=== PATIENT | female | born 1970 | race Caucasian/White ===

== ENCOUNTER 2020-04-22 10:32 | Outpatient (REF) | payer MEDICAID, SELFPAY ==
--- NOTE | ~2020-04-22 | XR_ITS ---
EXAMINATION: XR LUMBOSACRAL SPINE WITH OBLIQUES CLINICAL INFORMATION: Lower back pain COMPARISON: 03/23/2014 TECHNIQUE: AP, both oblique, and lateral views of the lumbar spine. Lateral view of the lumbosacral junction. FINDINGS: No acute fracture or subluxation. Slight scoliotic curvature. There is slight anterior wedging of the T11 vertebral body. This is unchanged. Small endplate osteophytes at the lower thoracic spine. Lumbar vertebral body height and alignment is maintained. Disc spaces are maintained. Small endplate osteophytes at L3 anteriorly are increased from the 2015 study. Mild facet arthropathy at the lower lumbar spine. The sacroiliac joints are symmetric. The sacrum appears intact. The bowel gas pattern is unremarkable. XR/XR lumbar spine 4V min IMPRESSION: Mild degenerative changes at the lower thoracic spine with slight height loss of T11, unchanged. Mild degenerative changes of the lumbar spine are increased from prior, with small endplate osteophytes of L3 and mild facet arthropathy at the lower lumbar spine.
== END 2020-04-22 10:33 | disposition home or self-care (01) ==
LOC: HO.XRAY 10:32
PROVIDERS: Visit Provider Registered Nurse
DX: M54.5 Low back pain (principal)
CPT/HCPCS: 72110

== ENCOUNTER 2021-09-24 18:14 | Emergency (ER) | payer MEDICAID, SELFPAY ==
--- NOTE | ~2021-09-24 | XR_ITS ---
EXAMINATION: XR CHEST CLINICAL INFORMATION: Shortness of breath, Covid positive COMPARISON: Chest x-ray 02/27/2011 TECHNIQUE: 2 views of the chest were obtained. FINDINGS: The lungs are clear. No airspace consolidation, pleural effusion, or pneumothorax. Mild eventration of the anterior right hemidiaphragm. The cardiomediastinal silhouette is within normal limits. No acute osseous injury. XR/XR chest 2V IMPRESSION: No acute pulmonary process.
[2021-09-24 18:18] VITALS: BP 114/73; PULSE 100; RESP 18; TEMP 37.3; O2SAT 97; BMI 37.4
--- NOTE | 2021-09-24 19:33 | ED_ITS ---
HPI - URI/Sore Throat General Chief Complaint: Upper Respiratory Symptoms Stated Complaint: COVID + difficulty breathing Time Seen by Provider: 09/24/21 18:29 Source: patient Mode of arrival: ambulatory Limitations: no limitations History of Present Illness HPI Narrative: 51 yo female with history of mild intermittent asthma, obesity, prediabetes who presents to the ER for evaluation after she was found to be COVID positive at home today on a home antigen test. She states starting Wednesday she started having some runny nose, chest congestion and headaches. She developed subjective fevers and dry cough. She reports body aches and generally not feeling well. She denies any chest pain, difficulty breathing, nausea, vomiting, diarrhea or abdominal pain. She reports she is vaccinated for COVID with to Moderna vaccines, she cannot recall the exact dates but thinks the last one may have been in July. MD elicited complaint: fever, cough, nasal congestion and other (headache and chest congestion) Pertinent past history: asthma Onset (ago): day(s) (3-4) Consistency: progressively worsening Severity: moderate Able to tolerate fluids by mouth: Yes Exacerbating factors: exertion Relieving factors: OTC cold medicine Context: sick contacts Associated symptoms: fever, chills, myalgias, headache, nasal congestion and cough Treatments prior to arrival: none Related Data Previous Rx's Medication Instructions Recorded benzonatate 100 mg capsule 100 mg PO TID PRN cough #20 caps 09/24/21 Allergies Allergy/AdvReac Type Severity Reaction Status Date / Time No Known Allergies Allergy Verified 09/24/21 18:18 Review of Systems Review of Systems: Constitutional: + Fever, + Chills ENT/Mouth: No sore throat, No Rhinorrhea, No Swallowing Difficulty Eyes: No Eye Pain, No Swelling, No Redness Cardiovascular: No Chest Pain, No SOB, No Orthopnea, No Edema Respiratory: + Cough, No Sputum, No Wheezing, No dyspnea Gastrointestinal: No Nausea, No Vomiting, No Diarrhea, No abdominal Pain Genitourinary: No Dysuria, No Urinary Frequency, No Hematuria Musculoskeletal: No joint pain, No Myalgias Skin: No Skin Lesions, No rash Neuro: + Weakness, No Numbness, No Dizziness, + Headache Psych: No Anxiety/Panic, No Depression Heme/Lymph: No Bruising, No Lymphadenopathy Endocrine: No Polyuria, No Polydipsia PMFSH Social History Social History Advance Directives: No Advance Directives Information Provided: No Physical Exam Vital Signs: Vital Signs: Last Vital Signs Temp 99.1 F 09/24/21 18:18 Pulse 100 09/24/21 18:18 Resp 18 09/24/21 18:18 BP 114/73 09/24/21 18:18 Pulse Ox 97 09/24/21 18:18 O2 Del Method 09/24/21 18:18 BMI result Body Mass Index 37.4 Appearance: Alert. Oriented X3. No acute distress. Eyes: Pupils equal, round and reactive to light. ENT: Pharynx normal. Neck: Normal inspection. Neck supple. CVS: Normal heart rate and rhythm. Pulses normal. Respiratory: No respiratory distress. Breath sounds normal. Abdomen: Soft and nontender. +BS x4 Skin: Skin warm and dry. Normal skin color. Normal skin turgor. No rashes. Extremities: No lower extremity edema. No calf tenderness. Neuro: Oriented X 3. Grossly normal, nonfocal. Course Course Course Narrative: 51-year-old female with a history of asthma, prediabetes who presents to the ER for evaluation after she was found to be COVID positive at home today. She reports generalized headache, body aches, chest congestion and subjective fevers. On arrival to the ER she has a low-grade temp 99.1 degrees, blood pressure is normal. She is satting at 97% on room air. No respiratory distress her lungs are clear. Will get a chest x-ray to ensure no evidence of COVID pneumonia. Her symptom onset was greater than 72 hours ago. Reevaluation(s) Reevaluation #1: Chest x-ray is clear. At this time patient is stable for discharge home with supportive care. She was advised to use an at home pulse oximeter to keep an eye on her oxygen saturations. Will prescribe Tessalon as needed for cough. She will follow-up with her primary care doctor. Stable for d/c home. Critical Care Time Critical Care Time Critical Care Time: No Discharge Plan Discharge Clinical Impression: COVID-19 Patient Disposition: Home, Self-Care Instructions: Covid-19 Viral Syndrome and Novel Coronavirus (ED) Hey/Ath Additional Instructions: Your chest x-ray and oxygen levels were normal. Rest. Drink plenty of fluids. Do not go out in public for the next 7 days. Take over the counter cold/flu medications as needed for your symptoms. Take Tylenol and/or Motrin as needed for fevers, headaches and body aches. Follow up with your doctor this week. If you shortness of breath worsens , if you develop difficulty breathing or any other concerning symptom come back to the ER for further evaluation. Schaffer radiograf?a de t?rax y los niveles de ox?ирина fueron normales. Descansar. Beber mucho l?quido. No salga en p?blico suyapa los pr?ximos 7 d?as. [place] medicamentos de venta nasra para el resfriado o la gripe seg?n sea necesario para nicolle s?ntomas. [place] Tylenol y/o Motrin seg?n sea necesario para la fiebre, los cameron de grey y los cameron corporales. Ilene un seguimiento con schaffer m?dico esta semana. Si schaffer dificultad para respirar empeora, si desarrolla dificultad para respirar o cualquier otro s?ntoma preocupante, regrese a la otto de emergencias para peewee evaluaci?n adicional. Prescriptions: New benzonatate 100 mg capsule 100 mg PO TID PRN (Reason: cough) Qty: 20 0RF Print Language: [place]
== END 2021-09-24 20:28 | disposition home or self-care (01) ==
PROVIDERS: Emergency Provider Emergency Medicine
DX: U07.1 COVID-19 (principal); J45.909 Unspecified asthma, uncomplicated; E66.9 Obesity, unspecified; Z68.37 Body mass index [BMI] 37.0-37.9, adult
CPT/HCPCS: 71046; 99282; 99283

== ENCOUNTER 2022-01-19 15:21 | Emergency (ER) | payer MEDICAID, SELFPAY ==
--- NOTE | ~2022-01-19 | CT_ITS ---
EXAMINATION: CT ABDOMEN AND PELVIS WITHOUT CONTRAST CLINICAL INFORMATION: Left flank and abdominal pain. COMPARISON: None TECHNIQUE: Multidetector volumetric imaging was performed from the superior aspect of the liver through the pubic symphysis. Sagittal and coronal reformatted images were obtained on the technologist's workstation. This CT examination was performed using dose optimization techniques as appropriate, variously including the following: *Automated exposure control *Adjustment of mA and/or kV according to patient size (this includes techniques or standardized protocols for targeted exams where dose is matched to indication/reason for exam; i.e. extremities or head) *Use of iterative reconstruction technique DLP: 1097 mGy-cm FINDINGS: LUNG BASES: The visualized lung bases are unremarkable. LIVER, GALLBLADDER, AND BILIARY TREE: The liver is normal in size, shape, and attenuation. No focal hepatic lesion or biliary ductal dilatation is present. The gallbladder is unremarkable with no evidence of radiopaque gallstones, gallbladder wall thickening, or obvious pericholecystic inflammatory changes. There is focal gallbladder wall calcification. PANCREAS: The pancreas is homogeneous in density and normal size. Inferior the pancreas is slight mesenteric stranding and haziness. Small shotty lymph nodes are seen. SPLEEN: Unremarkable. ADRENAL GLANDS: Unremarkable. KIDNEYS AND URETERS: The kidneys are normal in size, shape, and attenuation. There is a 3 mm radiopaque calculi mid to lower pole left kidney without caliectasis or hydronephrosis. No additional radiopaque calculi seen.. BLADDER: Unremarkable. GASTROINTESTINAL TRACT: The stomach is distended with recently ingested food. The small bowel loops are normal caliber. Appendix is normal caliber. There is scattered colonic diverticulosis with mural thickening of sigmoid colon with fat stranding suggestive of diverticulitis. ABDOMINAL WALL: No significant hernia is appreciated. LYMPH NODES: Normal. VASCULAR: Unremarkable. PELVIC VISCERA: The uterus is anteverted and appears unremarkable. There is no free fluid or free air. There are scattered phleboliths in the pelvis. No abnormal size pelvic or inguinal lymph nodes seen. OSSEOUS STRUCTURES: Unremarkable. CT/CT abdomen pelvis wo IV con IMPRESSION: Sigmoid colon diverticulosis without diverticulitis. No perforation to suspect any free air or abscess. No proximal bowel obstruction. Nonobstructive radiopaque calculi mid to lower pole left kidney. Areas of focal calcification in the gallbladder wall. No radiopaque gallstone seen. Fleischner guidelines were followed.
--- NOTE | 2022-01-19 17:52 | ED_ITS ---
HPI - General Adult General Chief complaint: Abdominal Pain Stated complaint: abd pain Related Data Previous Rx's Medication Instructions Recorded benzonatate 100 mg capsule 100 mg PO TID PRN cough #20 caps 09/24/21 Allergies Allergy/AdvReac Type Severity Reaction Status Date / Time No Known Allergies Allergy Verified 01/19/22 17:55 [facility] Social History Social History Advance Directives: No Advance Directives Information Provided: No Physical Exam ED Vital Signs: BMI result Body Mass Index 39.4 Course Course Course Narrative: LLQ pain that radiates into the back, no dysuria, fevers, chills, nausea vomiting. Had diarrhea.+Urine frequency VS Reviewed GEN: NAD Abd: ND/NT - UA, CT Discharge Plan Discharge Clinical Impression: Abdominal pain Patient Disposition: Elopement Prescriptions: No Action benzonatate 100 mg capsule 100 mg PO TID PRN (Reason: cough) Qty: 20 0RF Interventions: LWBS Worksheet Last Done: 01/20/22 00:06 Discharge Date/Time: 01/20/22 00:50
[2022-01-19 17:53] VITALS: BP 156/85; PULSE 83; RESP 18; TEMP 36.3; O2SAT 99; BMI 39.4
--- NOTE | 2022-01-19 22:41 | PC.NURSE ---
no response called 3 times
== END 2022-01-20 00:50 | disposition left against medical advice (07) ==
LOC: HO.ED 01-20 00:21
PROVIDERS: Emergency Provider Emergency Medicine
DX: R10.32 Left lower quadrant pain (principal)
CPT/HCPCS: 74176; 99281; 99282; 99284

== ENCOUNTER → 2022-06-16 13:51 | Outpatient (BNVA) | payer MEDICAID, SELFPAY | PROVIDERS: PCP Family Medicine; Visit Provider Nurse Practitioner Family | DX: K59.04 Chronic idiopathic constipation (principal); K21.9 Gastro-esophageal reflux disease without esophagitis | CPT/HCPCS: 99202 ==

== ENCOUNTER 2023-01-16 11:45 | Emergency (ER) | payer MEDICAID, SELFPAY ==
--- NOTE | ~2023-01-16 | XR_ITS ---
EXAMINATION: XR CHEST CLINICAL INFORMATION: Chest pain, shortness of breath COMPARISON: Chest x-ray on 09/24/2021 TECHNIQUE: 2 views of the chest were obtained. FINDINGS: No significant abnormality is noted involving the heart, lungs, mediastinum, bony thorax or soft tissues. XR/XR chest 2V IMPRESSION: Unremarkable examination.
[2023-01-16 11:49] VITALS: BP 140/78; PULSE 92; O2SAT 99
--- NOTE | 2023-01-16 11:50 | ECG_ITS ---
Test Reason : cp Blood Pressure : / mmHG Vent. Rate : 084 BPM Atrial Rate : 084 BPM P-R Int : 126 ms QRS Dur : 082 ms QT Int : 394 ms P-R-T Axes : 022 -12 008 degrees QTc Int : 465 ms Normal sinus rhythm Normal ECG When compared with ECG of 26-FEB-2011 23:46, No significant change was found Referred By: Xin Yu Electronically Signed By:GAGE ZAMAN MD
[2023-01-16 12:02] VITALS: BP 122/74; PULSE 79; RESP 18; TEMP 36; O2SAT 99; BMI 41.4
--- NOTE | 2023-01-16 12:05 | ED.CHESTPAIN ---
HPI - Chest Pain General Chief Complaint: Chest Pain Stated Complaint: CHEST PAIN X 2 DAYS Time Seen by Provider: 01/16/23 16:56 Source: patient Mode of arrival: ambulatory Limitations: no limitations History of Present Illness HPI narrative: Patient coming from home but chest pain for last 2 days with dizziness and shortness of history of hypertension no history of known coronary disease patient was given 324 mg aspirin by EMS, EKG without any ischemic change cardiac enzymes negative BNP normal prior to my evaluation patient does have increased anxiety no prior cardiac history pain is sharp localized to left chest with no radiation Related Data Home Medications Medication Instructions Recorded Confirmed amitriptyline 10 mg tablet 10 mg PO BEDTIME 06/16/22 bupropion HCl 150 mg 24 hr tablet, 150 mg PO QAM 06/16/22 extended release buspirone 15 mg tablet 15 mg PO 06/16/22 cholecalciferol (vitamin D3) 50 50 mcg PO QAM 06/16/22 mcg (2,000 unit) capsule (Vitamin D3) fluoxetine 20 mg capsule 40 mg PO QAM 06/16/22 fluticasone propionate 220 1 puff inhalation BID 06/16/22 mcg/actuation HFA aerosol inhaler (Flovent HFA) fluticasone propionate 50 2 spray intranasal DAILY 06/16/22 mcg/actuation nasal spray,suspension loratadine 10 mg tablet 10 mg PO DAILY 06/16/22 zolpidem 10 mg tablet 10 mg PO BEDTIME PRN insomnia 06/16/22 Previous Rx's Medication Instructions Recorded benzonatate 100 mg capsule 100 mg PO TID PRN cough #20 caps 09/24/21 docusate sodium 100 mg capsule 100 mg PO BEDTIME #90 caps 06/16/22 sennosides 8.6 mg tablet (Natural 17.2 mg (2 x 8.6 mg) PO BEDTIME 06/16/22 Senna Laxative) constipation #180 tabs pantoprazole 40 mg tablet,delayed 40 mg PO DAILY #30 tabs 12/03/22 release lorazepam 1 mg tablet 1 mg PO BEDTIME PRN Anxiety/sleep 01/16/23 #14 tabs Allergies Allergy/AdvReac Type Severity Reaction Status Date / Time No Known Allergies Allergy Verified 06/16/22 14:11 Review of Systems Review of Systems: Yes all other systems are reviewed and are negative [facility] Family History Family History Mother Diabetes 1.5, managed as type 2 HTN (hypertension) Heart disease High cholesterol Father No problems noted. Sister HTN (hypertension) Diabetes 1.5, managed as type 2 High cholesterol Sister Diabetes 1.5, managed as type 2 HTN (hypertension) High cholesterol Heart disease Social History Social History Household Members: Family and Children Alcohol intake: current Patient Tobacco Use Status: Never used Tobacco Smoked in Last 30 Days: No Use of substances other than those prescribed or required for medical reasons: No Advance Directives: No Advance Directives Information Provided: No Physical Exam Vital Signs: Vital Signs: Last Vital Signs Temp 96.8 F 01/16/23 12:02 Pulse 67 01/16/23 17:07 Resp 18 01/16/23 17:07 BP 117/60 01/16/23 17:07 Pulse Ox 100 01/16/23 17:07 O2 Del Method Room Air 01/16/23 17:07 BMI result Body Mass Index 41.4 Appearance: Alert. Oriented X3. No acute distress. Eyes: PERRLA, No Nystagmus ENT: Pharynx normal. Oral Mucosa moist Neck: Normal inspection. Neck supple. CVS: Normal heart rate and rhythm. Pulses normal. Respiratory: No respiratory distress. Equal air entry bilateral, no wheezing/rales/rhonchi Abdomen: Soft and nontender. Bowel sounds are present, no mass palpable, no CVA tenderness Skin: Skin warm and dry. Normal skin color. Normal skin turgor. Extremities: No lower extremity edema. No calf tenderness Neuro: Oriented X 3. No motor deficit. No sensory deficit.No cerebellar signs , cranial nerves II-XII intact Course Course Course Narrative: This is an RME: Additional HPI, ROS, PE not included below will be deferred to primary provider. Patient is a 52-year-old female who presents emergency department for evaluation of chest pain x 2 days. Described as intermittent left anterior chest pain with shortness of breath, lasting approximately 1 minute described as a pushing/pressure sensation and both self resolves. Pain is most noted when she is lying on the left side or lying on her stomach. Today while walking down the stairs she felt short of breath without the pain. Currently feels fatigued, denies CP Plan: labs, EKG, XR Medical Decision Making Medical Decision Making [facility] Narrative: Patient atypical chest pain normal EKG normal cardiac end no chest pain at the time of evaluation with increased anxiety will discharge patient home on Ativan advised to follow with PCP for further evaluation Differential Diagnosis Differential Diagnoses: The differential diagnosis associated with the presentation includes ACS/chest wall pain/anxiety Admission/Observation Consideration of admission/observation: Escalation of care including admission/observation considered Lab Data [facility] Lab Attestation statement: I reviewed the patient's lab results. 01/16/23 14:07 01/16/23 14:07 Labs: Lab Results 01/16/23 Range/Units 14:07 WBC 13.8 H (4.8-10.8) X10*3/uL RBC 4.83 (4.20-5.50) X10*6/uL Hgb 11.4 L (12.0-16.0) g/dl Hct 35.1 L (37.0-47.0) % MCV 72.7 L (80.0-98.0) fL MCH 23.6 L (27.0-33.0) pg MCHC 32.5 (31.0-35.0) g/dl RDW 15.1 (11.0-16.0) % Plt Count 360 (160-400) X10*3/uL MPV 10.5 (9.4-12.3) fL Immature Gran % (Auto) 0.4 (0.0-0.4) % Neut % (Auto) 73.1 H (45-73) % Lymph % (Auto) 19.8 L (20-40) % [place] % (Auto) 5.0 (2-11) % Eos % (Auto) 1.2 (0-4) % Baso % (Auto) 0.5 (0-2) % Lymph # (Auto) 2.7 (1.2-4.9) X10*3/uL [place] # (Auto) 0.7 (0.1-1.2) X10*3/uL Eos # (Auto) 0.2 (0.0-0.4) X10*3/uL Baso # (Auto) 0.1 (0.0-0.2) X10*3/uL Abs Immat Gran (auto) 0.06 H (0.00-0.03) X10*3/uL Absolute Neuts (auto) 10.0 H (2.0-8.3) x10*3/uL Absolute Nucleated RBC 0.000 (0.0-0.012) X10*3/uL Nucleated RBC % (auto) 0.0 (0.0-0.2) /100WBC PT 12.7 (11.1-13.3) SEC INR 1.0 (0.9-1.1) Sodium 138 (135-145) mmol/L Potassium 3.6 (3.3-5.1) mmol/L Chloride 110 H (96-108) mmol/L Carbon Dioxide 20 L (22-29) mmol/L Anion Gap 12 (12-20) BUN 11 (9-16) mg/dL Creatinine 0.83 (0.5-1.4) mg/dL Estim Creat Clear Calc 96.8 Estimated GFR > 60 Random Glucose 143 H (60-115) mg/dL Calcium 9.2 (8.4-10.2) mg/dL Magnesium 2.0 (1.6-2.6) mg/dL Total Bilirubin 0.5 (0.0-1.0) mg/dL AST 10 (5-31) U/L ALT 7 (0-31) U/L Alkaline Phosphatase 65 (39-117) U/L Troponin I High Sens < 2.7 (<3.5-17.0) ng/L B-Natriuretic Peptide < 10 (<100) pg/mL Total Protein 7.5 (6.5-8.0) g/dL Albumin 4.0 (3.5-5.0) g/dL COVID-19 (ADRIANA) Negative (Negative) COVID-19 Clin Com See Note Influenza Type A (KARLA) Negative (Negative) Influenza Type B (KARLA) Negative (Negative) Influenza A & B Note See Note Independent Interpretation I performed an independent interpretation of an: EKG and Plain X-Ray Interpretation: Normal sinus rhythm with heart rate 84 beats per minute normal interval normal axis no acute ST-T changes no acute ischemia Radiology Impression Discussion of test interpretation with radiology: I have reviewed the radiologist's reading. Discharge Plan Discharge Clinical Impression: Chest pain, Anxiety, Biliary colic Patient Disposition: Home, Self-Care Instructions: Chest Pain (ED), Anxiety (ED) Additional Instructions: Continue taking medication as prescribed by her PCP it is not clear whether your chest pain from the heart, you need further management Lorazepam for severe anxiety and sleep as needed Follow with PCP for further evaluation including stress test Continuar tomando los medicamentos seg?n lo recetado por schaffer PCP. No est? chasity si schaffer dolor en el pecho proviene del coraz?n; necesita m?s tratamiento. Lorazepam para la ansiedad severa y dormir seg?n sea necesario Siga con el PCP para peewee evaluaci?n adicional, incluida peewee prueba de esfuerzo. Prescriptions: New lorazepam 1 mg tablet 1 mg PO BEDTIME PRN (Reason: Anxiety/sleep) Qty: 14 0RF No Action pantoprazole 40 mg tablet,delayed release (DR/EC) 40 mg PO DAILY Qty: 30 2RF Rx Instructions: take one tablet half an hour before breakfast benzonatate 100 mg capsule 100 mg PO TID PRN (Reason: cough) Qty: 20 0RF cholecalciferol (vitamin D3) [Vitamin D3] 50 mcg (2,000 unit) capsule 50 mcg PO QAM bupropion HCl 150 mg tablet extended release 24 hr 150 mg PO QAM buspirone 15 mg tablet 15 mg PO loratadine 10 mg tablet 10 mg PO DAILY fluoxetine 20 mg capsule 40 mg PO QAM zolpidem 10 mg tablet 10 mg PO BEDTIME PRN (Reason: insomnia) amitriptyline 10 mg tablet 10 mg PO BEDTIME fluticasone propionate 50 mcg/actuation spray,suspension 2 spray intranasal DAILY fluticasone propionate [Flovent HFA] 220 mcg/actuation HFA aerosol inhaler 1 puff inhalation BID docusate sodium 100 mg capsule 100 mg PO BEDTIME Qty: 90 3RF sennosides [Natural Senna Laxative] 8.6 mg tablet 17.2 mg PO BEDTIME Qty: 180 3RF Print Language: Chinese
[2023-01-16 14:13] LABS: MANUAL DIFF FLAG NO
[2023-01-16 14:14] LABS: Basophils Absolute Auto 0.1 X10*3/uL (0.0-0.2); Basophils Percent Auto 0.5 % (0-2); Eosinophils Absolute Auto 0.2 X10*3/uL (0.0-0.4); Eosinophils Percent Auto 1.2 % (0-4); Hematocrit 35.1 % (37.0-47.0); Hemoglobin 11.4 g/dl (12.0-16.0); Imm Gran Abs Auto 0.06 X10*3/uL (0.00-0.03); Imm Gran Pct Auto 0.4 % (0.0-0.4); Lymphocytes Absolute Auto 2.7 X10*3/uL (1.2-4.9); Lymphocytes Percent Auto 19.8 % (20-40); Mean Corpuscular HGB Conc 32.5 g/dl (31.0-35.0); Mean Corpuscular Hemoglobin 23.6 pg (27.0-33.0); Mean Corpuscular Volume 72.7 fL (80.0-98.0); Mean Platelet Volume 10.5 fL (9.4-12.3); Monocytes Absolute Auto 0.7 X10*3/uL (0.1-1.2); Neutrophils Percent Auto 73.1 % (45-73); Platelet Count 360 X10*3/uL (160-400); Red Blood Count 4.83 X10*6/uL (4.20-5.50); Red Cell Distribution Width 15.1 % (11.0-16.0); White Blood Count 13.8 X10*3/uL (4.8-10.8)
[2023-01-16 14:29] LABS: Alanine Aminotransferase 7 U/L (0-31); Alkaline Phosphatase 65 U/L (39-117); Anion Gap 12 (12-20); Aspartate Amino Transferase 10 U/L (5-31); Bilirubin Total 0.5 mg/dL (0.0-1.0); Blood Urea Nitrogen 11 mg/dL (9-16); Calcium 9.2 mg/dL (8.4-10.2); Carbon Dioxide 20 mmol/L (22-29); Chloride 110 mmol/L (96-108); Creatinine Clr Calc Pharmacy 96.8; Estimated Glomerular Filt Rate > 60; Glucose Random 143 mg/dL (60-115); Potassium 3.6 mmol/L (3.3-5.1); Sodium 138 mmol/L (135-145); Total Protein 7.5 g/dL (6.5-8.0)
[2023-01-16 14:31] LABS: COVID-19 Test Negative (Negative); IDNOW Serial# 58CA691E; IDNOW Serial# 9DB6401D; Influenza A Negative (Negative); Influenza B2 Negative (Negative); Prothrombin Time 12.7 SEC (11.1-13.3)
[2023-01-16 14:36] LABS: B Type Natriuretic Peptide < 10 pg/mL (<100)
[2023-01-16 14:40] LABS: Troponin-I High Sensitivity < 2.7 ng/L (<3.5-17.0)
[2023-01-16 17:07] VITALS: BP 117/60; PULSE 67; RESP 18; O2SAT 100
[2023-01-16] MEDS: LORazepam 1 MG TABLET PO (18:12)
== END 2023-01-16 18:24 | disposition home or self-care (01) ==
PROVIDERS: Nurse Practitioner Family; Emergency Provider Internal Medicine; PCP Family Medicine
DX: R07.9 Chest pain, unspecified (principal); F41.9 Anxiety disorder, unspecified; K80.50 Calculus of bile duct without cholangitis or cholecystitis without obstruction; Z11.52 Encounter for screening for COVID-19; R06.02 Shortness of breath; E11.9 Type 2 diabetes mellitus without complications; I10 Essential (primary) hypertension; E78.5 Hyperlipidemia, unspecified; Z79.899 Other long term (current) drug therapy
CPT/HCPCS: 36415; 71046; 80053; 83735; 83880; 84484; 85025; 85610; 87502; 87635; 93005; 99283; 99285

== ENCOUNTER → 2023-01-16 11:50 | Outpatient (BNV) | payer MEDICAID, SELFPAY | PROVIDERS: Emergency Provider Internal Medicine; PCP Family Medicine; Visit Provider Internal Medicine Cardiovascular Disease | DX: R07.9 Chest pain, unspecified (principal) | CPT/HCPCS: 93010 ==

== ENCOUNTER 2023-04-30 11:36 | Outpatient (REF) | payer MEDICAID, SELFPAY ==
[2023-04-30 13:35] LABS: Hematocrit 35.9 % (37.0-47.0); Hemoglobin 11.5 g/dl (12.0-16.0); Mean Corpuscular Hemoglobin 23.9 pg (27.0-33.0); Mean Corpuscular Volume 74.6 fL (80.0-98.0); Mean Platelet Volume 10.5 fL (9.4-12.3); Platelet Count 395 X10*3/uL (160-400); Red Blood Count 4.81 X10*6/uL (4.20-5.50); Red Cell Distribution Width 15.4 % (11.0-16.0); White Blood Count 12.8 X10*3/uL (4.8-10.8)
[2023-04-30 13:40] LABS: Estimated Average Glucose 111 mg/dL; Hemoglobin A1c % 5.5 % (<6.0)
[2023-04-30 13:54] LABS: Alanine Aminotransferase 8 U/L (0-31); Albumin Level 4.2 g/dL (3.5-5.0); Alkaline Phosphatase 73 U/L (39-117); Anion Gap 10 (12-20); Aspartate Amino Transferase 14 U/L (5-31); Bilirubin Direct 0.2 mg/dL (0.0-0.5); Bilirubin Total 0.5 mg/dL (0.0-1.0); Blood Urea Nitrogen 11 mg/dL (9-16); Calcium 9.2 mg/dL (8.4-10.2); Carbon Dioxide 25 mmol/L (22-29); Chloride 107 mmol/L (96-108); Cholesterol 151 mg/dL (<200); Estimated Glomerular Filt Rate > 60; Glucose Random 110 mg/dL (60-115); HDL Cholesterol 51 mg/dL (>40); LDL Cholesterol Calculated 78 mg/dL (<100); Sodium 138 mmol/L (135-145); Triglycerides 111 mg/dL (<150)
[2023-04-30 14:10] LABS: Thyroid Stimulating Hormone 2.97 uIU/mL (0.32-4.0)
[2023-05-01 04:20] LABS: HBS Num1 0.41 mIU/mL (0-7.99); HBsAGNum1 0.45 S/CO (0.00-0.99); HIV AB/AG Nonreactive (Nonreactive); HIV Num 1 0.06 S/CO (0.00-0.99); Hepatitis B Surface Antigen Negative (Negative); ~HepC Num1 0.16 S/CO (0.00-0.79); ~Hepatitis B Surface Antibody NONREACTIVE (Nonreactive); ~Hepatitis C Antibody Nonreactive (Nonreactive)
[2023-05-03 09:20] LABS: RPR Rapid Plasma Reagin NON-REACTIVE (NON-REACTIVE)
== END 2023-04-30 11:37 | disposition home or self-care (01) ==
LOC: HO.HHCL 11:36
PROVIDERS: Visit Provider Family Medicine
DX: Z11.4 Encounter for screening for human immunodeficiency virus [HIV] (principal); Z13.6 Encounter for screening for cardiovascular disorders; R73.03 Prediabetes
CPT/HCPCS: 36415; 80048; 80061; 80076; 82306; 83036; 84439; 84443; 85027; 86592; 86706; 86803; 87340; 87389

== ENCOUNTER 2023-05-27 15:45 | Outpatient (REF) | payer MEDICAID, SELFPAY ==
--- NOTE | ~2023-05-27 | MM_ITS ---
EXAMINATION: MM SCREENING DIGITAL BREAST TOMOSYNTHESIS, BILATERAL CLINICAL INFORMATION: Screening. Asymptomatic. COMPARISON: Mammography: This study is compared with prior exams dating back to 2015. TECHNIQUE: Digital breast tomosynthesis is performed in both the craniocaudal and mediolateral oblique views along with computer-aided detection (CAD). Synthesized 2D images are generated from the tomosynthesis. FINDINGS: There are scattered areas of fibroglandular density (ACR BI-RADS breast composition Category b). There are no significant masses, abnormal calcifications, or other abnormalities. MM/MM tomosynthesis screening BI IMPRESSION: No mammographic evidence of malignancy. ASSESSMENT: BI-RADS BI-RADS 1 - Negative RECOMMENDATION: Routine annual mammography screening. 1 year F/U This examination should not preclude the clinical evaluation of a suspicious palpable abnormality. This patient's information was entered into a reminder system with a target due date for their next mammogram.
== END 2023-05-27 15:46 | disposition home or self-care (01) ==
LOC: HO.MAMMO 15:45
PROVIDERS: Visit Provider Family Medicine
DX: Z12.31 Encounter for screening mammogram for malignant neoplasm of breast (principal)
CPT/HCPCS: 77063; 77067

== ENCOUNTER → 2023-05-27 16:15 | Outpatient (BNV) | payer MEDICAID, SELFPAY | PROVIDERS: Visit Provider Radiology Diagnostic Radiology | DX: Z12.31 Encounter for screening mammogram for malignant neoplasm of breast (principal) | CPT/HCPCS: 77063; 77067 ==

== ENCOUNTER 2023-09-07 11:53 | Outpatient (REF) | payer MEDICAID, SELFPAY ==
--- NOTE | ~2023-09-07 | XR_ITS ---
EXAMINATION: XR KNEE, LEFT CLINICAL INFORMATION: Pain in left knee. Fall. COMPARISON: None available. TECHNIQUE: Four views of the left knee. FINDINGS: No fracture or joint effusion. Alignment is anatomic. Joint spaces are maintained. No abnormal soft tissue calcification. XR/XR knee LT 4V IMPRESSION: Normal left knee.
--- NOTE | ~2023-09-07 | XR_ITS ---
EXAMINATION: XR SHOULDER, LEFT CLINICAL INFORMATION: Fall. Pain in shoulder. History of lifting heavy object 2 weeks ago. COMPARISON: None available. TECHNIQUE: Four views of the left shoulder. FINDINGS: The bones and soft tissues are normal. No fracture. Glenohumeral and acromioclavicular alignment is anatomic with normal joint space. No abnormal soft tissue calcifications. XR/XR shoulder LT min 2V IMPRESSION: Normal left shoulder.
[2023-09-07 13:11] LABS: MANUAL DIFF FLAG NO
[2023-09-07 13:20] LABS: Basophils Absolute Auto 0.1 X10*3/uL (0.0-0.2); Basophils Percent Auto 0.4 % (0-2); Eosinophils Absolute Auto 0.2 X10*3/uL (0.0-0.4); Eosinophils Percent Auto 1.2 % (0-4); Hematocrit 36.1 % (37.0-47.0); Hemoglobin 11.6 g/dl (12.0-16.0); Imm Gran Abs Auto 0.05 X10*3/uL (0.00-0.03); Imm Gran Pct Auto 0.4 % (0.0-0.4); Lymphocytes Absolute Auto 2.7 X10*3/uL (1.2-4.9); Lymphocytes Percent Auto 20.7 % (20-40); Mean Corpuscular HGB Conc 32.1 g/dl (31.0-35.0); Mean Corpuscular Hemoglobin 23.1 pg (27.0-33.0); Mean Corpuscular Volume 71.9 fL (80.0-98.0); Mean Platelet Volume 10.4 fL (9.4-12.3); Monocytes Absolute Auto 0.7 X10*3/uL (0.1-1.2); Monocytes Percent Auto 5.6 % (2-11); Neutrophils Absolute Auto 9.2 x10*3/uL (2.0-8.3); Neutrophils Percent Auto 71.7 % (45-73); Platelet Count 339 X10*3/uL (160-400); Red Blood Count 5.02 X10*6/uL (4.20-5.50); Red Cell Distribution Width 16.1 % (11.0-16.0); White Blood Count 12.8 X10*3/uL (4.8-10.8)
[2023-09-07 14:04] LABS: Iron 45 mcg/dL (30-160); Percent Iron Saturation 12 % (15-50); Total Iron Binding Capacity 374 mcg/dL (228-428); Unsaturated Iron Binding 329 ug/dL
[2023-09-07 14:21] LABS: Ferritin 10 ng/mL (10-250)
[2023-09-07 14:27] LABS: Folate 6.7 ng/mL (> or = 4.0); Vitamin B12 335 pg/mL (200-900)
== END 2023-09-07 11:54 | disposition home or self-care (01) ==
LOC: HO.HHCL 11:53
PROVIDERS: Visit Provider Family Medicine
DX: D72.829 Elevated white blood cell count, unspecified (principal); M89.8X1 Other specified disorders of bone, shoulder; M25.562 Pain in left knee; G89.29 Other chronic pain
CPT/HCPCS: 36415; 73030; 73564; 82607; 82728; 82746; 83540; 85025

== ENCOUNTER 2023-11-17 11:12 | Emergency (ER) | payer MEDICAID, SELFPAY ==
[2023-11-17 11:15] VITALS: BP 128/77; PULSE 84; RESP 16; TEMP 36.3; O2SAT 98; BMI 37.7
--- NOTE | 2023-11-17 11:17 | ED.GENADULT ---
HPI - General Adult General Chief complaint: Abdominal Pain Stated complaint: abd pain-nausea Time Seen by Provider: 11/17/23 13:44 Source: patient Mode of arrival: ambulatory Limitations: no limitations History of Present Illness HPI narrative: 53 year old female presents to the ER with abdominal pain. Pain is to her epigastric area the pain is worse with fatty foods. Was seen in triage and labs done. Pain is epigastric no RUQ or RLQ pain no previous surgeries still eating just less. Has not tried anything for pain. NO fever chills or cough. Related Data Home Medications ?Medication ?Instructions ?Recorded ?Confirmed amitriptyline 10 mg tablet 10 mg PO BEDTIME 06/16/22 bupropion HCl 150 mg 24 hr tablet, 150 mg PO QAM 06/16/22 extended release buspirone 15 mg tablet 15 mg PO 06/16/22 cholecalciferol (vitamin D3) 50 50 mcg PO QAM 06/16/22 mcg (2,000 unit) capsule (Vitamin D3) fluoxetine 20 mg capsule 40 mg PO QAM 06/16/22 fluticasone propionate 220 1 puff inhalation BID 06/16/22 mcg/actuation HFA aerosol inhaler (Flovent HFA) fluticasone propionate 50 2 spray intranasal DAILY 06/16/22 mcg/actuation nasal spray,suspension loratadine 10 mg tablet 10 mg PO DAILY 06/16/22 zolpidem 10 mg tablet 10 mg PO BEDTIME PRN insomnia 06/16/22 Previous Rx's ?Medication ?Instructions ?Recorded benzonatate 100 mg capsule 100 mg PO TID PRN cough #20 caps 09/24/21 docusate sodium 100 mg capsule 100 mg PO BEDTIME #90 caps 06/16/22 lorazepam 1 mg tablet 1 mg PO BEDTIME PRN Anxiety/sleep 01/16/23 #14 tabs sennosides 8.6 mg tablet (Natural 17.2 mg (2 x 8.6 mg) PO BEDTIME 06/23/23 Senna Laxative) constipation #180 tabs pantoprazole 40 mg tablet,delayed 40 mg PO DAILY #30 tabs 08/16/23 release aluminum-mag hydroxide-simethicone 10 ml PO Q6H PRN indigestion 11/17/23 200 mg-200 mg-20 mg/5 mL oral susp #3,000 mL (Maalox Advanced) famotidine 20 mg tablet (Pepcid) 20 mg PO BID PRN GERD #60 tabs 11/17/23 ondansetron 4 mg disintegrating 4 mg PO Q6H #14 tabs 11/17/23 tablet Allergies Allergy/AdvReac Type Severity Reaction Status Date / Time No Known Allergies Allergy Verified 11/17/23 11:19 Review of Systems Review of Systems: Review of systems: General: Patient denies any fever chills recent illness or falls Musculoskeletal: Denies back pain or body aches or other injuries HEENT: denies headache, runny nose, ear pain Respiratory: denies shortness of breath, cough Cardiovascular: no chest pain or palpitations : denies dysuria, frequency Abdomen: no nausea vomiting epigastric abdominal pain Extremities: no swelling, no pain Skin: no diaphoresis Yes all other systems are reviewed and are negative [facility] Family History Family History Mother Diabetes 1.5, managed as type 2 HTN (hypertension) Heart disease High cholesterol Father No problems noted. Sister HTN (hypertension) Diabetes 1.5, managed as type 2 High cholesterol Sister Diabetes 1.5, managed as type 2 HTN (hypertension) High cholesterol Heart disease Social History Social History (System 05/03/23 @ 14:09 by Evelyne De Los Santos) Household Members: Family and Children Alcohol intake: current Patient Tobacco Use Status: Never used Tobacco Advance Directives: No Advance Directives Information Provided: No Do you have a plan to hurt others: No Plan Physical Exam ED Vital Signs: Vital Signs - 24 hr 11/17/23 11:15 11/17/23 12:00 Temperature 97.3 F 97.8 F Pulse Rate 84 76 Respiratory Rate 16 16 Blood Pressure 128/77 143/77 H Pulse Oximetry 98 98 Oxygen Delivery Method Room Air Room Air BMI result Body Mass Index 37.7 General: Well-appearing well-nourished in no signs of distress HEENT: Normocephalic atraumatic Neck: No signs of JVD, no masses no tenderness or lymphadenopathy Cardiovascular: Regular rate and rhythm Respiratory: Clear to auscultation bilaterally Abdomen: Soft nontender no masses Extremities: Normal pedal pulses no signs of edema Skin: Dry warm no rashes Back: No tenderness full ROM Course Course Course Narrative: This is a rapid medical exam performed by Dave Sands NP: Additional HPI, ROS, PE not included below will be deferred to primary provider. Patient is a 53-year-old Kyrgyz speaking female with history of anxiety and depression presenting to the emergency department with complaint of epigastric abdominal pain, dizziness, nausea, vomiting, and 2 episodes of diarrhea. Abdominal pain x 3 days. Denies urinary symptoms. Plan: viral serology, labs Reevaluation(s) Reevaluation #1: Patient now sleeping in the room after Maalox and Pepcid she looks well we will send patient home Maalox Pepcid Zofran and close PCP follow up. Time: 15:08 Medications Administered Discontinued Medications Generic Name Dose Route Start Last Admin Trade Name Freq PRN Reason Stop Dose Admin Al Hydroxide/Mg Hydroxide 30 ml 11/17/23 13:56 11/17/23 14:24 Magnesium Hydrox/Alum Hydrox 30 Ml Oral.Susp PO 11/17/23 13:57 30 ml ONCE ONE Administration Famotidine 20 mg 11/17/23 13:56 11/17/23 14:24 Famotidine 20 Mg Tablet PO 11/17/23 13:57 20 mg ONCE ONE Administration Medical Decision Making Medical Decision Making [facility] Narrative: Patient looks well pain is not reproducible on exam this not a surgical abdomen do not think there is any need for ultrasound or imaging patient's labs are unremarkable I will try GI cocktail and reassess. Differential Diagnosis Differential Diagnoses: The differential diagnosis associated with the presentation includes Epigastric pain gastritis dehydration less likely cholecystitis cholangitis or choledocholithiasis with a normal exam anemia electrolyte abnormality Lab Data [facility] Lab Attestation statement: I reviewed the patient's lab results. 11/17/23 12:05 11/17/23 12:05 Labs: Lab Results 11/17/23 11/17/23 Range/Units 12:05 13:37 WBC 11.3 H (4.8-10.8) X10*3/uL RBC 4.72 (4.20-5.50) X10*6/uL Hgb 10.9 L (12.0-16.0) g/dl Hct 33.1 L (37.0-47.0) % MCV 70.1 L (80.0-98.0) fL MCH 23.1 L (27.0-33.0) pg MCHC 32.9 (31.0-35.0) g/dl RDW 15.4 (11.0-16.0) % Plt Count 343 (160-400) X10*3/uL MPV 10.0 (9.4-12.3) fL Immature Gran % (Auto) 0.4 (0.0-0.4) % Neut % (Auto) 66.4 (45-73) % Lymph % (Auto) 23.7 (20-40) % [place] % (Auto) 6.7 (2-11) % Eos % (Auto) 2.2 (0-4) % Baso % (Auto) 0.6 (0-2) % Lymph # (Auto) 2.7 (1.2-4.9) X10*3/uL [place] # (Auto) 0.8 (0.1-1.2) X10*3/uL Eos # (Auto) 0.3 (0.0-0.4) X10*3/uL Baso # (Auto) 0.1 (0.0-0.2) X10*3/uL Abs Immat Gran (auto) 0.04 H (0.00-0.03) X10*3/uL Absolute Neuts (auto) 7.5 (2.0-8.3) x10*3/uL Absolute Nucleated RBC 0.000 (0.0-0.012) X10*3/uL Nucleated RBC % (auto) 0.0 (0.0-0.2) /100WBC Sodium 139 (135-145) mmol/L Potassium 3.5 (3.3-5.1) mmol/L Chloride 107 (96-108) mmol/L Carbon Dioxide 25 (22-29) mmol/L Anion Gap 11 L (12-20) BUN 12 (9-16) mg/dL Creatinine 0.88 (0.5-1.4) mg/dL Estim Creat Clear Calc 82.7 Estimated GFR > 60 Random Glucose 121 H (60-115) mg/dL Calcium 9.4 (8.4-10.2) mg/dL Total Bilirubin 0.3 (0.0-1.0) mg/dL AST 11 (5-31) U/L ALT 8 (0-31) U/L Alkaline Phosphatase 70 (39-117) U/L Total Protein 7.3 (6.5-8.0) g/dL Albumin 4.0 (3.5-5.0) g/dL Urine Color Yellow Urine Appearance Clear Urine pH 5.5 (5.0-9.0) Ur Specific [place] 1.025 (1.005-1.025) Urine Protein Negative (Neg-Trace) mg/dL Urine Glucose (UA) Negative (Negative) mg/dL Urine Ketones Negative (Negative) mg/dL Urine Blood Negative (Negative) Urine Nitrite Negative (Negative) Ur Leukocyte Esterase Negative (Negative) Influenza Type A (PCR) NEGATIVE (Negative) Influenza Type B (PCR) NEGATIVE (Negative) RSV RNA Qual (PCR) NEGATIVE (Negative) SARS-CoV-2 RNA (RT-PCR) NEGATIVE (Negative) External Record Review External record reviewed: Inpatient record, Office record, Outpatient record and Prior outpatient labs Discharge Plan Discharge Clinical Impression: Abdominal pain Patient Disposition: Home, Self-Care Instructions: Abdominal Pain (ED), Gastroesophageal Reflux Disease (DC) Additional Instructions: You were seen today for abdominal pain. You had labs done which were all unremarkable. Please call follow up with your doctor if you have any other concerns please return to the emergency department. Prescriptions: New famotidine [Pepcid] 20 mg tablet 20 mg PO BID PRN (Reason: GERD) Qty: 60 0RF alum-mag hydroxide-simeth [Maalox Advanced] 200-200-20 mg/5 mL suspension 10 ml PO Q6H PRN (Reason: indigestion) Qty: 3000 0RF ondansetron 4 mg tablet,disintegrating 4 mg PO Q6H Qty: 14 0RF No Action sennosides [Natural Senna Laxative] 8.6 mg tablet 17.2 mg PO BEDTIME Qty: 180 3RF pantoprazole 40 mg tablet,delayed release (DR/EC) 40 mg PO DAILY Qty: 30 2RF Rx Instructions: take one tablet half an hour before breakfast benzonatate 100 mg capsule 100 mg PO TID PRN (Reason: cough) Qty: 20 0RF lorazepam 1 mg tablet 1 mg PO BEDTIME PRN (Reason: Anxiety/sleep) Qty: 14 0RF cholecalciferol (vitamin D3) [Vitamin D3] 50 mcg (2,000 unit) capsule 50 mcg PO QAM bupropion HCl 150 mg tablet extended release 24 hr 150 mg PO QAM buspirone 15 mg tablet 15 mg PO loratadine 10 mg tablet 10 mg PO DAILY fluoxetine 20 mg capsule 40 mg PO QAM zolpidem 10 mg tablet 10 mg PO BEDTIME PRN (Reason: insomnia) amitriptyline 10 mg tablet 10 mg PO BEDTIME fluticasone propionate 50 mcg/actuation spray,suspension 2 spray intranasal DAILY fluticasone propionate [Flovent HFA] 220 mcg/actuation HFA aerosol inhaler 1 puff inhalation BID docusate sodium 100 mg capsule 100 mg PO BEDTIME Qty: 90 3RF Print Language: Kyrgyz
[2023-11-17 12:00] VITALS: BP 143/77; PULSE 76; RESP 16; TEMP 36.6; O2SAT 98
[2023-11-17 12:10] LABS: MANUAL DIFF FLAG NO
[2023-11-17 12:13] LABS: Basophils Absolute Auto 0.1 X10*3/uL (0.0-0.2); Basophils Percent Auto 0.6 % (0-2); Eosinophils Absolute Auto 0.3 X10*3/uL (0.0-0.4); Eosinophils Percent Auto 2.2 % (0-4); Hematocrit 33.1 % (37.0-47.0); Hemoglobin 10.9 g/dl (12.0-16.0); Imm Gran Abs Auto 0.04 X10*3/uL (0.00-0.03); Imm Gran Pct Auto 0.4 % (0.0-0.4); Lymphocytes Absolute Auto 2.7 X10*3/uL (1.2-4.9); Lymphocytes Percent Auto 23.7 % (20-40); Mean Corpuscular HGB Conc 32.9 g/dl (31.0-35.0); Mean Corpuscular Hemoglobin 23.1 pg (27.0-33.0); Mean Corpuscular Volume 70.1 fL (80.0-98.0); Monocytes Absolute Auto 0.8 X10*3/uL (0.1-1.2); Monocytes Percent Auto 6.7 % (2-11); Neutrophils Absolute Auto 7.5 x10*3/uL (2.0-8.3); Neutrophils Percent Auto 66.4 % (45-73); Platelet Count 343 X10*3/uL (160-400); Red Blood Count 4.72 X10*6/uL (4.20-5.50); Red Cell Distribution Width 15.4 % (11.0-16.0); White Blood Count 11.3 X10*3/uL (4.8-10.8)
[2023-11-17 12:24] LABS: Alanine Aminotransferase 8 U/L (0-31); Alkaline Phosphatase 70 U/L (39-117); Anion Gap 11 (12-20); Aspartate Amino Transferase 11 U/L (5-31); Bilirubin Total 0.3 mg/dL (0.0-1.0); Blood Urea Nitrogen 12 mg/dL (9-16); Calcium 9.4 mg/dL (8.4-10.2); Carbon Dioxide 25 mmol/L (22-29); Chloride 107 mmol/L (96-108); Creatinine Clr Calc Pharmacy 82.7; Estimated Glomerular Filt Rate > 60; Glucose Random 121 mg/dL (60-115); Potassium 3.5 mmol/L (3.3-5.1); Sodium 139 mmol/L (135-145); Total Protein 7.3 g/dL (6.5-8.0)
[2023-11-17 12:59] LABS: Influenza A PCR NEGATIVE (Negative); Influenza B PCR NEGATIVE (Negative); Resp Syncy Virus RNA Qual PCR NEGATIVE (Negative); SARS COV2 PCR INHOUSE NEGATIVE (Negative)
[2023-11-17 13:46] LABS: Appearance Urine Clear; Color Urine Yellow; Glucose Urine UA Negative (Negative); Leukocyte Esterase Urine Negative (Negative); Nitrite Urine Negative (Negative); PH 5.5 (5.0-9.0); Specific Gravity - Urine 1.025 (1.005-1.025); Urine Blood Negative (Negative); Urine Ketones Negative (Negative); Urine Protein Negative (Neg-Trace)
[2023-11-17] MEDS: Famotidine 20 MG TABLET PO (14:24)
[2023-11-17] MEDS: Magnesium Hydrox/Alum Hydrox 30 ML ORAL.SUSP PO (14:24)
[2023-11-17 15:42] VITALS: BP 144/84; PULSE 70; RESP 16; TEMP 36.6; O2SAT 99
== END 2023-11-17 15:42 | disposition home or self-care (01) ==
PROVIDERS: Registered Nurse Emergency; Emergency Provider Student in an Organized Health Care Education/Training Program
DX: R10.13 Epigastric pain (principal); R11.2 Nausea with vomiting, unspecified; Z03.818 Encounter for observation for suspected exposure to other biological agents ruled out
CPT/HCPCS: 0241U; 80053; 81003; 85025; 99283

== ENCOUNTER 2023-12-30 23:20 | Emergency (ER) | payer MEDICAID, SELFPAY ==
--- NOTE | ~2023-12-30 | CT_ITS ---
EXAMINATION: CT HEAD WITHOUT CONTRAST CLINICAL INFORMATION: Headache. Rule out bleed COMPARISON: None available. TECHNIQUE: Contiguous axial imaging was performed from the skull base to vertex without intravenous administration of contrast. This CT examination was performed using dose optimization techniques as appropriate, variously including the following: *Automated exposure control *Adjustment of mA and/or kV according to patient size (this includes techniques or standardized protocols for targeted exams where dose is matched to indication/reason for exam; i.e. extremities or head) *Use of iterative reconstruction technique DLP: 684 mGy-cm FINDINGS: No intracranial hemorrhage, tumors or acute infarcts identified. The ventricles and sulci are normal in size and configuration. No focal parenchymal lesions brain or abnormal extra-axial fluid collections identified. Normal appearance of the orbits and globes. No extracranial soft tissue inflammatory changes noted. No significant opacification of the visualized paranasal sinuses, mastoid air cells and middle ear cavities. Minimal segmental calcific atherosclerotic plaques within the cavernous portions of the internal carotid arteries. CT/CT head/brain wo IV con IMPRESSION: Minimal segmental calcific atherosclerosis of the cavernous portions of the internal carotid arteries; otherwise, normal unenhanced CT of the head. No acute intracranial abnormalities. Electronically signed by: Neville Osborne MD 12/31/2023 05:17 AM EST
[2023-12-30 23:22] VITALS: BP 139/79; PULSE 84; RESP 18; TEMP 36.8; O2SAT 98; BMI 38.1
[2023-12-30 23:40] LABS: MANUAL DIFF FLAG NO
[2023-12-30 23:41] LABS: Basophils Absolute Auto 0.1 X10*3/uL (0.0-0.2); Basophils Percent Auto 0.4 % (0-2); Eosinophils Absolute Auto 0.2 X10*3/uL (0.0-0.4); Hemoglobin 10.2 g/dl (12.0-16.0); Imm Gran Abs Auto 0.03 X10*3/uL (0.00-0.03); Imm Gran Pct Auto 0.3 % (0.0-0.4); Lymphocytes Absolute Auto 3.5 X10*3/uL (1.2-4.9); Lymphocytes Percent Auto 30.2 % (20-40); Mean Corpuscular HGB Conc 32.9 g/dl (31.0-35.0); Mean Corpuscular Hemoglobin 23.3 pg (27.0-33.0); Mean Corpuscular Volume 70.9 fL (80.0-98.0); Mean Platelet Volume 10.1 fL (9.4-12.3); Monocytes Absolute Auto 0.8 X10*3/uL (0.1-1.2); Monocytes Percent Auto 7.3 % (2-11); Neutrophils Absolute Auto 6.8 x10*3/uL (2.0-8.3); Neutrophils Percent Auto 59.8 % (45-73); Platelet Count 302 X10*3/uL (160-400); Red Blood Count 4.37 X10*6/uL (4.20-5.50); Red Cell Distribution Width 15.7 % (11.0-16.0); White Blood Count 11.4 X10*3/uL (4.8-10.8)
[2023-12-30 23:58] LABS: Alanine Aminotransferase 11 U/L (0-31); Alkaline Phosphatase 69 U/L (39-117); Anion Gap 12 (12-20); Aspartate Amino Transferase 21 U/L (5-31); Bilirubin Total 0.2 mg/dL (0.0-1.0); Blood Urea Nitrogen 8 mg/dL (9-16); Calcium 8.7 mg/dL (8.4-10.2); Carbon Dioxide 24 mmol/L (22-29); Chloride 108 mmol/L (96-108); Creatinine Clr Calc Pharmacy 98.1; Estimated Glomerular Filt Rate > 60; Glucose Random 102 mg/dL (60-115); Potassium 3.2 mmol/L (3.3-5.1); Sodium 141 mmol/L (135-145); Total Protein 7.1 g/dL (6.5-8.0)
[2023-12-31 01:44] VITALS: BP 135/67; PULSE 69; RESP 16; TEMP 36.9; O2SAT 98
--- NOTE | 2023-12-31 03:53 | ED_ITS ---
HPI - Headache General Chief Complaint: Headache Stated Complaint: headache, blood pressure elevated Time Seen by Provider: 12/31/23 03:53 Source: patient and other (Boyfriend) Mode of arrival: ambulatory Limitations: no limitations History of Present Illness ED Provider: Dr. Karson Adams HPI Narrative: 53-year-old female with a history of asthma, arthritis, who presents emergency department for evaluation of sudden onset of left-sided headache at 21:30 hours. She states that she was talking on the phone with her boyfriend when she had a sudden onset of headache. She describes the pain is a constant, pressure-like pain which is 8/10. She denied change in her vision, nausea or vomiting. She states she gets headaches every evening but this headache was more severe and was persistent. She did take Tylenol orally at home with no relief for the pain. At the time my evaluation she states she was still having pain which is 8/10. Related Data Home Medications ?Medication ?Instructions ?Recorded ?Confirmed amitriptyline 10 mg tablet 10 mg PO BEDTIME 06/16/22 bupropion HCl 150 mg 24 hr tablet, 150 mg PO QAM 06/16/22 extended release buspirone 15 mg tablet 15 mg PO 06/16/22 cholecalciferol (vitamin D3) 50 50 mcg PO QAM 06/16/22 mcg (2,000 unit) capsule (Vitamin D3) fluoxetine 20 mg capsule 40 mg PO QAM 06/16/22 fluticasone propionate 220 1 puff inhalation BID 06/16/22 mcg/actuation HFA aerosol inhaler (Flovent HFA) fluticasone propionate 50 2 spray intranasal DAILY 06/16/22 mcg/actuation nasal spray,suspension loratadine 10 mg tablet 10 mg PO DAILY 06/16/22 zolpidem 10 mg tablet 10 mg PO BEDTIME PRN insomnia 06/16/22 Previous Rx's ?Medication ?Instructions ?Recorded benzonatate 100 mg capsule 100 mg PO TID PRN cough #20 caps 09/24/21 docusate sodium 100 mg capsule 100 mg PO BEDTIME #90 caps 06/16/22 lorazepam 1 mg tablet 1 mg PO BEDTIME PRN Anxiety/sleep 01/16/23 #14 tabs sennosides 8.6 mg tablet (Natural 17.2 mg (2 x 8.6 mg) PO BEDTIME 06/23/23 Senna Laxative) constipation #180 tabs pantoprazole 40 mg tablet,delayed 40 mg PO DAILY #30 tabs 08/16/23 release aluminum-mag hydroxide-simethicone 10 ml PO Q6H PRN indigestion 11/17/23 200 mg-200 mg-20 mg/5 mL oral susp #3,000 mL (Maalox Advanced) famotidine 20 mg tablet (Pepcid) 20 mg PO BID PRN GERD #60 tabs 11/17/23 ondansetron 4 mg disintegrating 4 mg PO Q6H #14 tabs 11/17/23 tablet Allergies Allergy/AdvReac Type Severity Reaction Status Date / Time No Known Allergies Allergy Verified 12/30/23 23:24 Review of Systems 2 Review of Systems: Yes all other systems are reviewed and are negative [facility] Family History Family History Mother Diabetes 1.5, managed as type 2 HTN (hypertension) Heart disease High cholesterol Father No problems noted. Sister HTN (hypertension) Diabetes 1.5, managed as type 2 High cholesterol Sister Diabetes 1.5, managed as type 2 HTN (hypertension) High cholesterol Heart disease Social History Social History (System 05/03/23 @ 14:09 by Evelyne De Los Santos) Household Members: Family and Children Alcohol intake: current Patient Tobacco Use Status: Never used Tobacco Advance Directives: No Do you have a plan to hurt others: No Plan Physical Exam 2 Vital Signs: Vital Signs: Last Vital Signs Temp 98.4 F 12/31/23 01:44 Pulse 77 12/31/23 04:57 Resp 16 12/31/23 04:57 BP 132/66 12/31/23 04:57 Pulse Ox 98 12/31/23 04:57 O2 Del Method Room Air 12/31/23 04:57 BMI result Body Mass Index 38.1 Vital signs revealed an elevated blood pressure of 135/67 otherwise unremarkable Exam: General: Awake, alert in no distress, weight 107 kg, elevated BMI of 38.1 kg per m2 Head: Normocephalic, atraumatic, tenderness palpation over temporal regions of her head bilaterally EENT: PERRL, Lids normal, sclera normal, conjunctiva normal, nose normal , ears normal, throat without erythema or exudates Neck: Supple, no adenopathy Lung: breath sounds symmetric, no wheezing, rales or rhonchi Chest: symmetric movement, nontender Heart: regular rate and rhythm, normal S1, S2 no murmurs or rubs Abdomen: soft, non-tender, nondistended, normal bowel sounds Back: no vertebral tenderness, no CVAT Extremities: no deformities, moves all extremities symmetrically Neuro: Awake, alert, oriented, normal speech, cranial nerves intact, moves all extremities symmetrically Psych: Pleasant, cooperative Medications Administered Discontinued Medications Generic Name Dose Route Start Last Admin Trade Name Freq PRN Reason Stop Dose Admin Diphenhydramine HCl 50 mg 12/31/23 04:07 12/31/23 04:41 Diphenhydramine Hcl 50 Mg/Ml Vial IVPUSH 12/31/23 04:08 50 mg ONCE STA Administration Ketorolac Tromethamine 15 mg 12/31/23 04:07 12/31/23 04:41 Ketorolac Tromethamine 15 Mg/Ml Vial IVPUSH 12/31/23 04:08 15 mg ONCE STA Administration Metoclopramide HCl 10 mg 12/31/23 04:07 12/31/23 04:41 Metoclopramide Hcl 10 Mg/2 Ml Vial IVPUSH 12/31/23 04:08 10 mg ONCE STA Administration Medical Decision Making Medical Decision Making MDM Narrative: 53-year-old female with a history of asthma, arthritis, who presents emergency department for evaluation of sudden onset of left-sided headache at 21:30 hours while she was talking on the phone with her boyfriend. Patient states she gets similar headaches every night however this 1 was more severe and was not relieved by Tylenol. Patient's pain was 8/10 and was constant and present at the time of my evaluation. She denied nausea, vomiting, change in her vision. Vital signs revealed a slight elevation in blood pressure otherwise unremarkable. Physical examination did reveal bilateral temporal region tenderness with a nonfocal neurologic exam. Differential diagnosis: ?Includes but is not limited to subarachnoid hemorrhage, mass effect, giant cell arteritis, migraine headache, anemia, electrolyte abnormalities Course: My interpretation patient's laboratory evaluation as follows: WBC elevated 11,400-chronic. Microcytic anemia with an H&H of 10.2 and 31.0 with an MCV of 70.9-chronic. Potassium low 3.2. LFTs normal. Given the sudden onset of the patient's headache and the severity headache I did order CT scan of the brain. Patient was treated with Toradol 15 mg IV, Benadryl 50 mg IV and Reglan 05:48 My interpretation patient's laboratory evaluation is as follows: Patient has a microcytic anemia with an H&H of 10.2 and 31.0 with an MCV of 70.9-this is chronic and the patient states she takes iron. Potassium was low 3.2. ESR was normal at 13. CRP was slightly elevated at 1.13. Laboratory evaluation was unremarkable, the normal inflammatory markers are reassuring and suggests that she does not have giant cell arteritis as the cause of her symptoms. CT scan of the brain did not reveal any acute findings to explain the patient's headache which is reassuring. Patient was feeling better after the above treatment. The patient will be kept here in the emergency department until her boyfriend can come back to pick her up and take her home. Admission/Observation Consideration of admission/observation: Escalation of care including admission/observation considered (Yes) Lab Data MDM Lab Attestation statement: I reviewed the patient's lab results. 12/30/23 23:35 12/30/23 23:35 Labs: Lab Results 12/30/23 12/31/23 Range/Units 23:35 04:40 WBC 11.4 H (4.8-10.8) X10*3/uL RBC 4.37 (4.20-5.50) X10*6/uL Hgb 10.2 L (12.0-16.0) g/dl Hct 31.0 L (37.0-47.0) % MCV 70.9 L (80.0-98.0) fL MCH 23.3 L (27.0-33.0) pg MCHC 32.9 (31.0-35.0) g/dl RDW 15.7 (11.0-16.0) % Plt Count 302 (160-400) X10*3/uL MPV 10.1 (9.4-12.3) fL Immature Gran % (Auto) 0.3 (0.0-0.4) % Neut % (Auto) 59.8 (45-73) % Lymph % (Auto) 30.2 (20-40) % [place] % (Auto) 7.3 (2-11) % Eos % (Auto) 2.0 (0-4) % Baso % (Auto) 0.4 (0-2) % Lymph # (Auto) 3.5 (1.2-4.9) X10*3/uL [place] # (Auto) 0.8 (0.1-1.2) X10*3/uL Eos # (Auto) 0.2 (0.0-0.4) X10*3/uL Baso # (Auto) 0.1 (0.0-0.2) X10*3/uL Abs Immat Gran (auto) 0.03 (0.00-0.03) X10*3/uL Absolute Neuts (auto) 6.8 (2.0-8.3) x10*3/uL Absolute Nucleated RBC 0.000 (0.0-0.012) X10*3/uL Nucleated RBC % (auto) 0.0 (0.0-0.2) /100WBC ESR 13 (0-20) MM/HR Sodium 141 (135-145) mmol/L Potassium 3.2 L (3.3-5.1) mmol/L Chloride 108 (96-108) mmol/L Carbon Dioxide 24 (22-29) mmol/L Anion Gap 12 (12-20) BUN 8 L (9-16) mg/dL Creatinine 0.83 (0.5-1.4) mg/dL Estim Creat Clear Calc 98.1 Estimated GFR > 60 Random Glucose 102 (60-115) mg/dL Calcium 8.7 D (8.4-10.2) mg/dL Total Bilirubin 0.2 (0.0-1.0) mg/dL AST 21 (5-31) U/L ALT 11 (0-31) U/L Alkaline Phosphatase 69 (39-117) U/L C-Reactive Protein 1.13 H (< or = 0.50) mg/dL Total Protein 7.1 (6.5-8.0) g/dL Albumin 4.0 (3.5-5.0) g/dL Radiology Impression Discussion of test interpretation with radiology: I have reviewed the radiologist's reading. Radiologist Impression: CT head/brain wo IV con IMPRESSION: Minimal segmental calcific atherosclerosis of the cavernous portions of the internal carotid arteries; otherwise, normal unenhanced CT of the head. No acute intracranial abnormalities. Electronically signed by: Neville Osborne MD 12/31/2023 05:17 AM [facility] Dictated By: Neville Osborne MD Independent Historian Clinical information obtained from an independent historian. History obtained from or confirmed by: Other (Boyfriend) Chronic Conditions Patient?s care impacted by: Other (Asthma) Discharge Plan Discharge Clinical Impression: Headache, Elevated blood pressure reading Patient Disposition: Home, Self-Care Instructions: Acute Headache (ED) Additional Instructions: The CT scan of your brain did not reveal any significant findings to explain your headache which is reassuring. Your blood work was consistent with your iron deficient anemia, continue taking iron as prescribed by your provider. Take Tylenol 500 mg pills, 2 pills every 6 hours as needed for nausea and vomiting. Continue taking medications as prescribed by your providers. Follow-up with your doctor in 2 days. Please return to the emergency department if your symptoms get worse or if you develop any symptoms that are concerning to you. Prescriptions: No Action sennosides [Natural Senna Laxative] 8.6 mg tablet 17.2 mg PO BEDTIME Qty: 180 3RF pantoprazole 40 mg tablet,delayed release (DR/EC) 40 mg PO DAILY Qty: 30 2RF Rx Instructions: take one tablet half an hour before breakfast benzonatate 100 mg capsule 100 mg PO TID PRN (Reason: cough) Qty: 20 0RF lorazepam 1 mg tablet 1 mg PO BEDTIME PRN (Reason: Anxiety/sleep) Qty: 14 0RF famotidine [Pepcid] 20 mg tablet 20 mg PO BID PRN (Reason: GERD) Qty: 60 0RF alum-mag hydroxide-simeth [Maalox Advanced] 200-200-20 mg/5 mL suspension 10 ml PO Q6H PRN (Reason: indigestion) Qty: 3000 0RF ondansetron 4 mg tablet,disintegrating 4 mg PO Q6H Qty: 14 0RF cholecalciferol (vitamin D3) [Vitamin D3] 50 mcg (2,000 unit) capsule 50 mcg PO QAM bupropion HCl 150 mg tablet extended release 24 hr 150 mg PO QAM buspirone 15 mg tablet 15 mg PO loratadine 10 mg tablet 10 mg PO DAILY fluoxetine 20 mg capsule 40 mg PO QAM zolpidem 10 mg tablet 10 mg PO BEDTIME PRN (Reason: insomnia) amitriptyline 10 mg tablet 10 mg PO BEDTIME fluticasone propionate 50 mcg/actuation spray,suspension 2 spray intranasal DAILY fluticasone propionate [Flovent HFA] 220 mcg/actuation HFA aerosol inhaler 1 puff inhalation BID docusate sodium 100 mg capsule 100 mg PO BEDTIME Qty: 90 3RF Print Language: Bahamian
[2023-12-31 04:28] LABS: C Reactive Protein 1.13 mg/dL (< or = 0.50)
[2023-12-31] MEDS: Metoclopramide HCl 10 MG/2 ML VIAL IVPUSH (04:41)
[2023-12-31] MEDS: Ketorolac Tromethamine 15 MG/ML VIAL IVPUSH (04:41)
[2023-12-31] MEDS: diphenhydrAMINE HCL 50 MG/ML VIAL IVPUSH (04:41)
--- NOTE | 2023-12-31 04:51 | PC.NURSE ---
Ultra sound Iv placed, medicated per apr. pt awaiting to go to [facility].
[2023-12-31 04:57] VITALS: BP 132/66; PULSE 77; RESP 16; O2SAT 98
[2023-12-31 05:16] LABS: Erythrocyte Sedimentation Rate 13 MM/HR (0-20)
[2023-12-31 06:29] VITALS: BP 115/55; PULSE 70; RESP 16; TEMP 36.6; O2SAT 99
[2023-12-31 08:12] VITALS: BP 115/55; PULSE 70; RESP 16; TEMP 36.6; O2SAT 99
== END 2023-12-31 08:12 | disposition home or self-care (01) ==
PROVIDERS: Emergency Provider Emergency Medicine Emergency Medical Services
DX: R51.9 Headache, unspecified (principal); R03.0 Elevated blood-pressure reading, without diagnosis of hypertension; D50.9 Iron deficiency anemia, unspecified; Z79.899 Other long term (current) drug therapy
CPT/HCPCS: 36415; 70450; 80053; 85025; 85652; 86140; 96374; 96375; 99284; 99285; J1200; J1885; J2765

== ENCOUNTER 2024-04-14 17:54 | Outpatient (REF) | payer MEDICAID, SELFPAY ==
--- OUTSIDE RECORDS SUMMARY | 2024-04-14 18:14 | XMS_ITS | Encounter Summary ---
Author Organization [employer] Address [address] [place] [address] [address] [place] [address] Care Team Providers Care Global Compensation Analyst Name Role Phone Isa Lujan DO Primary Care Provider Reason for Referral * Imaging (Routine) - Authorized Specialty Diagnoses / Procedures Referred By Contac t Referred To Contact Radiology Diagnoses Pelvic pain Procedures US Pelvis Transvaginal Isa Lujan DO [address] [place] [address] Phone: tel: fax: [address] Phone: tel: fax: Referral ID Status Reason Start Date Expiration Date V isits Requested Visits Authorized [id number] Authorized 04/14/2024 04/14/2025 1 1 * Imaging (Routine) - Authorized Specialty Diagnoses / Procedures Referred By Contac t Referred To Contact Radiology Diagnoses Pelvic pain Procedures Us Pelvis complete Isa Lujan DO [address] [place] [address] Phone: tel: fax: [address] Phone: tel: fax: Referral ID Status Reason Start Date Expiration Date V isits Requested Visits Authorized [id number] Authorized 04/14/2024 04/14/2025 1 1 * Imaging (Routine) - Authorized Specialty Diagnoses / Procedures Referred By Contac t Referred To Contact Radiology Diagnoses Chronic gastroesophageal reflux disease Procedures US Abdomen Complete Isa Lujan DO [address] [place] [address] Phone: tel: fax: [address] Phone: tel: fax: Referral ID Status Reason Start Date Expiration Date V isits Requested Visits Authorized [id number] Authorized 04/14/2024 04/14/2025 1 1 Encounter Details Date Type Department Care Team (Latest Contact Info) Description 04/14/2024 11:15 AM EST Office Visit [facility] [address] [place] [address] Isa Lujan DO [address] [place] [address] Major depression, recurrent, chronic (CMS/HCC) (Primary Dx); Prediabetes; Mild persistent asthma without complication; Chronic allergic rhinitis; Chronic gastroesophageal reflux disease; Chronic constipation; Chronic tension-type headache, not intractable; Leukocytosis, unspecified type; Chest pain, unspecified type; Pelvic pain; Healthcare maintenance; BMI 39.0-39.9,adult Social History Tobacco Use Types Packs/Day Years Used Date Smoking Tobacco: Former Cigarettes Q uit: 01/15/2017 Passive Smoke Exposure: Past Smokeless Tobacco: Never Alcohol Use Standard Drinks/Week Comments Never 0 (1 standard drink = 0.6 oz pur e alcohol) Depression Answer Date Recorded Patient Health Questionnaire-9 Score 11 09/07/2023 Patient Health Questionnaire-9 Score 11 09/07/2023 Last PHQ-9: Questionnaire Data Not on file 0 09/07/2023 Housing Stability Answer Date Recorded What is your housing situation today? I have cinthya diaz 08/30/[address] you li ve. Do you have problems with any of the following? None of the above 08/30/2023 Food Insecurity Answer Date Recorded Within the past 12 months, y ou worried that your food would run out before you got money to buy more: Never True 08/30/2023 Within the past 12 months,th e food you bought just didn't last and you didn't have enough money to get more: Never True Transportation Answer Date Recorded In the past 12 months, has l ack of transportation kept you from medical appts, meetings, work or from getting things needed for daily living? No 08/30/2023 Utilities Answer Date Recorded In the past 12 months, has t he electric, gas, oil or water company threatened to shut off services in your home? No 08/30/2023 Depression Answer Date Recorded Patient Health Questionnaire-2 Score 4 09/07/2023 Internet Access Answer Date Recorded Internet Access Q1 Yes 10/15/2023 Internet Access Q2 Not on file 10/15/2023 Comments Unknown Sex and Gender Information Value Date Recorded Sex Assigned at Female 12/15/2021 10:21 AM EDT Legal Sex Female 10:21 AM EDT Gender Identity Female 12/15/2021 10:21 AM EDT Sexual Orientation Don't know 12/15/2021 10 :21 AM EDT documented as of this encounter Last Filed Vital Signs Vital Sign Reading Time Taken Comments Blood Pressure 134/88 04/14/2024 1:52 PM EST Pulse 86 04/14/2024 11:39 AM EST Temperature 37.1 ??C (98.7 ??F) 04/14/2024 11:[address] Respiratory Rate 18 04/14/2024 11:39 AM EST Oxygen Saturation 100% 04/14/2024 11:39 AM EST Inhaled Oxygen Concentration - - Weight 109 kg (240 lb 3.2 oz) 04/14/2024 11:39 A M EST Height 165.1 cm (5' 5 ) 04/14/2024 11:39 AM EST Body Mass Index 39.97 04/14/2024 11:39 AM EST documented in this encounter Plan of Treatment Scheduled Orders Name Type Priority Associated Diagnoses Orde r Schedule US Abdomen Complete Imaging Routine Chronic gastroesophageal reflux disease Expected: 04/14/2024, Expires: 04/14/2025 Helicobacter pylori, Urea Breath Test Lab Routine Chronic gastroesophageal reflux disease Expected: 04/14/2024 (Approximate), Expires: 04/14/2025 Us Pelvis complete Imaging Routine Pelvic pain Expected: 04/14/2024, Expires: 04/14/2025 US Pelvis Transvaginal Imaging Routine Pelvic pain Expected: 04/14/2024, Expires: 04/14/2025 T4, Free Lab Routine Major depression, recurrent, chronic (CMS/HCC) Prediabetes Mild persistent asthma without complication Chronic allergic rhinitis Chronic gastroesophageal reflux disease Chronic constipation Chronic tension-type headache, not intractable Leukocytosis, unspecified type Chest pain, unspecified type Pelvic pain Healthcare maintenance Expected: 04/14/2024 (Approximate), Expires: 04/14/2025 Lipid Panel, Standard Lab Routine Major depression, recurrent, chronic (CMS/HCC) Prediabetes Mild persistent asthma without complication Chronic allergic rhinitis Chronic gastroesophageal reflux disease Chronic constipation Chronic tension-type headache, not intractable Leukocytosis, unspecified type Chest pain, unspecified type Pelvic pain Healthcare maintenance Expected: 04/14/2024 (Approximate), Expires: 04/14/2025 TSH Lab Routine Major depression, recurrent, chronic (CMS/HCC) Prediabetes Mild persistent asthma without complication Chronic allergic rhinitis Chronic gastroesophageal reflux disease Chronic constipation Chronic tension-type headache, not intractable Leukocytosis, unspecified type Chest pain, unspecified type Pelvic pain Healthcare maintenance Expected: 04/14/2024 (Approximate), Expires: 04/14/2025 Vitamin D, 25-Hydroxy, Total, Immunoassay Lab Routine Major depression, recurrent, chronic (CMS/HCC) Prediabetes Mild persistent asthma without complication Chronic allergic rhinitis Chronic gastroesophageal reflux disease Chronic constipation Chronic tension-type headache, not intractable Leukocytosis, unspecified type Chest pain, unspecified type Pelvic pain Healthcare maintenance Expected: 04/14/2024 (Approximate), Expires: 04/14/2025 Hepatic Function Panel Lab Routine Major depression, recurrent, chronic (CMS/HCC) Prediabetes Mild persistent asthma without complication Chronic allergic rhinitis Chronic gastroesophageal reflux disease Chronic constipation Chronic tension-type headache, not intractable Leukocytosis, unspecified type Chest pain, unspecified type Pelvic pain Healthcare maintenance Expected: 04/14/2024 (Approximate), Expires: 04/14/2025 Hemoglobin A1c Lab Routine Major depression, recurrent, chronic (CMS/HCC) Prediabetes Mild persistent asthma without complication Chronic allergic rhinitis Chronic gastroesophageal reflux disease Chronic constipation Chronic tension-type headache, not intractable Leukocytosis, unspecified type Chest pain, unspecified type Pelvic pain Healthcare maintenance Expected: 04/14/2024 (Approximate), Expires: 04/14/2025 CBC Lab Routine Major depression, recurrent, chronic (CMS/HCC) Prediabetes Mild persistent asthma without complication Chronic allergic rhinitis Chronic gastroesophageal reflux disease Chronic constipation Chronic tension-type headache, not intractable Leukocytosis, unspecified type Chest pain, unspecified type Pelvic pain Healthcare maintenance Expected: 04/14/2024, Expires: 04/14/2025 Basic Metabolic Panel Lab Routine Major depression, recurrent, chronic (CMS/HCC) Prediabetes Mild persistent asthma without complication Chronic allergic rhinitis Chronic gastroesophageal reflux disease Chronic constipation Chronic tension-type headache, not intractable Leukocytosis, unspecified type Chest pain, unspecified type Pelvic pain Healthcare maintenance Expected: 04/14/2024 (Approximate), Expires: 04/14/2025 Chlamydia/N. Gonorrhoeae RNA, TMA, Urogenitial Microbiology Routine Major depression, recurrent, chronic (CMS/HCC) Prediabetes Mild persistent asthma without complication Chronic allergic rhinitis Chronic gastroesophageal reflux disease Chronic constipation Chronic tension-type headache, not intractable Leukocytosis, unspecified type Chest pain, unspecified type Pelvic pain Healthcare maintenance Ordered: 04/14/2024 HIV-1/2 Antigen and Antibodies, Fourth Generation, with Reflexes Lab Routine Major depression, recurrent, chronic (CMS/HCC) Prediabetes Mild persistent asthma without complication Chronic allergic rhinitis Chronic gastroesophageal reflux disease Chronic constipation Chronic tension-type headache, not intractable Leukocytosis, unspecified type Chest pain, unspecified type Pelvic pain Healthcare maintenance Expected: 04/14/2024 (Approximate), Expires: 04/14/2025 Hepatitis C Antibody with Reflex to HCV, RNA, Quantitative, Real-Time PCR Lab Routine Major depression, recurrent, chronic (CMS/HCC) Prediabetes Mild persistent asthma without complication Chronic allergic rhinitis Chronic gastroesophageal reflux disease Chronic constipation Chronic tension-type headache, not intractable Leukocytosis, unspecified type Chest pain, unspecified type Pelvic pain Healthcare maintenance Expected: 04/14/2024, Expires: 04/14/2025 RPR (Monitor) with Reflex to??Titer Lab Routine Major depression, recurrent, chronic (CMS/HCC) Prediabetes Mild persistent asthma without complication Chronic allergic rhinitis Chronic gastroesophageal reflux disease Chronic constipation Chronic tension-type headache, not intractable Leukocytosis, unspecified type Chest pain, unspecified type Pelvic pain Healthcare maintenance Expected: 04/14/2024, Expires: 04/14/2025 Vitamin B12 (Cobalamin) and Folate Panel, Serum Lab Routine Major depression, recurrent, chronic (CMS/HCC) Prediabetes Mild persistent asthma without complication Chronic allergic rhinitis Chronic gastroesophageal reflux disease Chronic constipation Chronic tension-type headache, not intractable Leukocytosis, unspecified type Chest pain, unspecified type Pelvic pain Healthcare maintenance BMI 39.0-39.9,adult Expected: 04/14/2024, Expires: 04/14/2025 Ferritin Lab Routine Major depression, recurrent, chronic (CMS/HCC) Prediabetes Mild persistent asthma without complication Chronic allergic rhinitis Chronic gastroesophageal reflux disease Chronic constipation Chronic tension-type headache, not intractable Leukocytosis, unspecified type Chest pain, unspecified type Pelvic pain Healthcare maintenance BMI 39.0-39.9,adult Expected: 04/14/2024, Expires: 04/14/2025 Iron And Total Iron Binding Capacity Lab Routine Major depression, recurrent, chronic (CMS/HCC) Prediabetes Mild persistent asthma without complication Chronic allergic rhinitis Chronic gastroesophageal reflux disease Chronic constipation Chronic tension-type headache, not intractable Leukocytosis, unspecified type Chest pain, unspecified type Pelvic pain Healthcare maintenance BMI 39.0-39.9,adult Expected: 04/14/2024, Expires: 04/14/2025 CBC auto differential Lab Routine Major depression, recurrent, chronic (CMS/HCC) Prediabetes Mild persistent asthma without complication Chronic allergic rhinitis Chronic gastroesophageal reflux disease Chronic constipation Chronic tension-type headache, not intractable Leukocytosis, unspecified type Chest pain, unspecified type Pelvic pain Healthcare maintenance BMI 39.0-39.9,adult Expected: 04/14/2024 (Approximate), Expires: 04/14/2025 documented as of this encounter Visit Diagnoses Diagnosis Major depression, recurrent, chronic (CMS/HCC)- Primary Prediabetes Other abnormal glucose Mild persistent asthma without complication Chronic allergic rhinitis Chronic gastroesophageal reflux disease Chronic constipation Unspecified constipation Chronic tension-type headache, not intractable Chronic tension type headache Leukocytosis, unspecified type Chest pain, unspecified type Pelvic pain Healthcare maintenance BMI 39.0-39.9,adult documented in this encounter Additional Health Concerns Assessment Noted Time PHQ-9 Depression Total Score: 11 024 11:02 AM EDT documented as of this encounter Care Teams Global Compensation Analyst Relationship Specialty Start Date End Date Isa Lujan DO [address] [place] [phone] PCP - General Family Medicine 04/22/20 documented as of this encounter
--- OUTSIDE RECORDS SUMMARY | 2024-04-14 18:14 | XMS_ITS | Encounter Summary ---
Author Organization [employer] Address [address] [place] [address] Care Team Providers Care Audio Visual Design Engineer Name Role Phone Isa Lujan DO Primary Care Provider [phone] Encounter Details Date Type Department Care Team (Late st Contact Info) Description 04/22/2022 Orders Only [facility] & PEDS [address] [place] [address] Isa Jacobson LPN Social History Tobacco Use Types Packs/Day Years Used Date Smoking Tobacco: Former Cigarettes Q uit: 01/15/2017 Passive Smoke Exposure: Past Alcohol Use Standard Drinks/Week Comments Never 0 (1 standard drink = 0.6 oz pur e alcohol) Comments Unknown Sex and Gender Information Value Date Recorded Sex Assigned at Female 12/15/2021 10:21 AM EDT Legal Sex Female 10:21 AM EDT Gender Identity Female 12/15/2021 10:21 AM EDT Sexual Orientation Don't know 12/15/2021 10 :21 AM EDT documented as of this encounter Plan of Treatment Not on file documented as of this encounter Visit Diagnoses Not on filedocumented in this encounter Additional Health Concerns Assessment Noted Time PHQ-9 Depression Total Score: 14 02/04/ 022 11:11 AM EST documented as of this encounter Care Teams Audio Visual Design Engineer Relationship Specialty Start Date End Date Isa Lujan DO [address] [place] [id number] PCP - General Family Medicine 04/22/20 documented as of this encounter
--- OUTSIDE RECORDS SUMMARY | 2024-04-14 18:14 | XMS_ITS | Encounter Summary ---
Author Organization [employer] Address [address] [place] [address] Care Team Providers Care Apartment Maintenance Technician Name Role Phone Isa Lujan DO Primary Care Provider [phone] Encounter Details Date Type Department Care Team (Late st Contact Info) Description 01/30/2022 Orders Only [facility] MED & PEDS [address] [place] [address] Isa Jacobson LPN Social History Tobacco Use Types Packs/Day Years Used Date Smoking Tobacco: Never Assessed Comments Unknown Sex and Gender Information Value Date Recorded Sex Assigned at Female 12/15/2021 10:21 AM EDT Legal Sex Female 10:21 AM EDT Gender Identity Female 12/15/2021 10:21 AM EDT Sexual Orientation Don't know 12/15/2021 10 :21 AM EDT documented as of this encounter Plan of Treatment Not on file documented as of this encounter Visit Diagnoses Not on filedocumented in this encounter Care Teams Apartment Maintenance Technician Relationship Specialty Start Date End Date Isa Lujan DO [address] [place] [phone] PCP - General Family Medicine 04/22/20 documented as of this encounter
--- OUTSIDE RECORDS SUMMARY | 2024-04-14 18:14 | XMS_ITS | Encounter Summary ---
Author Organization [email or web address] Address [address] [place] [address] Care Team Providers Care Entry Level Java Developer Name Role Phone Isa Lujan DO Primary Care Provider [phone] Encounter Details Date Type Department Care Team (Latest Contact Info) Description 04/11/2024 Travel Social History Tobacco Use Types Packs/Day Years [...] documented as of this encounter Care Teams Entry Level Java Developer Relationship Specialty Start Date End Date Isa Lujan DO [address] [place] [id number] PCP - General Family Medicine 04/22/20 documented as of this encounter
--- OUTSIDE RECORDS SUMMARY | 2024-04-14 18:14 | XMS_ITS | Encounter Summary ---
Author Organization [employer] Address [address] [place] [address] Care Team Providers Care Licensed Pesticide Applicator Name Role Phone Isa Lujan DO Primary Care Provider [phone] Encounter Details Date Type Department Care Team (Late st Contact Info) Description 05/22/[address] [facility] MED & PEDS [address] [place] [address] Isa Jacobson LPN Social History Tobacco Use [...] documented as of this encounter Care Teams Licensed Pesticide Applicator Relationship Specialty Start Date End Date Isa Lujan DO [address] [place] [id number] PCP - General Family Medicine 04/22/20 documented as of this encounter
--- OUTSIDE RECORDS SUMMARY | 2024-04-14 18:14 | XMS_ITS | Encounter Summary ---
Author Organization [employer] Address [address] [place] [address] Care Team Providers Care Consulting Services Manager Name Role Phone Isa Lujan DO Primary Care Provider [phone] Encounter Details Date Type Department Care Team (Latest Contact Info) Description 04/14/2024 Travel Social History Tobacco Use Types Packs/Day [...] documented as of this encounter Care Teams Consulting Services Manager Relationship Specialty Start Date End Date Isa Lujan DO [address] [place] [id number] PCP - General Family Medicine 04/22/20 documented as of this encounter
--- OUTSIDE RECORDS SUMMARY | 2024-04-14 18:14 | XMS_ITS | Encounter Summary ---
Author Organization [employer] Address [address] [place] [address] Care Team Providers Care Innovations Paraprofessional Name Role Phone Isa Lujan DO Primary Care Provider + [phone] Reason for Visit * Reason Comments Med Refill Encounter Details Date Type Department Care Team ([facility] st Contact Info) Description 04/04/2024 Refill [facility] [address] [place] [address] Isa Lujan DO [address] [place], [place] [phone] Vitamin D deficiency Social History Tobacco Use Types Packs/Day Years [...] as of this encounter Visit Diagnoses Diagnosis Vitamin D deficiency documented in this encounter Additional Health Concerns Assessment Noted Time PHQ-9 Depression Total Score: 11 024 11:02 AM EDT documented as of this encounter Care Teams Innovations Paraprofessional Relationship Specialty Start Date End Date Isa Lujan DO [address] [place] [address] PCP - General Family Medicine 04/22/20 documented as of this encounter
--- OUTSIDE RECORDS SUMMARY | 2024-04-14 18:14 | XMS_ITS | Clinical Summary ---
Author Organization [employer] Address [address] [facility] [address] [place] [address] Care Team Providers Care Stock Clerk Name Role Phone Isa Lujan Primary Care Provider [phone] Allergies No known active allergies Medications senna (Senokot) 8.6 MG tabletIndications :Constipation, unspecified constipation type TAKE 1 TABLET BY MOUTH EVERY DAY NEEDED FOR CONSTIPATION 90 tablet 023 Active buPROPion XL (Wellbutrin XL) 150 MG 24 hr tablet Take 150 mg by mouth in the morning. 023 Active busPIRone (Buspar) 15 MG tablet TAKE 1 TABLET BY MOUTH TWICE DAILY IN THE MORNING AND IN THE EVENING 023 Active FLUoxetine (PROzac) 20 MG capsule TAKE 2 CAPSULES BY MOUTH ONCE DAILY IN THE MORNING 023 Active hydrOXYzine pamoate (Vistaril) 50 MG capsule TAKE 1-2 CAPSULES BY MOUTH TWICE DAILY NEEDED FOR ANXIETY 023 Active zolpidem (Ambien) 10 MG tablet Take 10 mg by mouth if needed at bedtime. 023 Active ibuprofen 600 MG tabletIndications :New onset of headaches TAKE 1 TABLET BY MOUTH EVERY 6 HOURS NEEDED FOR PAIN OR FOR HEADACHE 40 tablet 2 023 Active Fiber-Lax 625 MG tablet TAKE 1 TABLET BY MOUTH TWICE DAILY IN THE MORNING AND AT BEDTIME 180 tablet 3 024 Active docusate sodium (Colace) 100 MG capsule TAKE 1 CAPSULE BY MOUTH TWICE DAILY IN THE MORNING AND AT BEDTIME 180 capsule 3 024 Active omeprazole (PriLOSEC) [address] capsuleIndication s:Chronic GERD take 1 capsule (20MG) by oral route every day before a meal 90 capsule 3 Active Diclofenac Sodium 1 % gel Apply 2 g topically if needed in the morning, at noon, in the evening, and at bedtime (pain). 150 g 3 Active sodium chloride (Mabel Nasal [place]) 0.65 % nasal spray Administer 1 spray into each nostril if needed for congestion. 30 mL 2024 Active acetaminophen (Tylenol 8 Hour) 650 MG ER tablet Take 1 tablet (650 mg) by mouth every 8 (eight) hours if needed for mild pain or headaches (fever). Do not crush, chew, or split. 90 tablet 1 2024 Active albuterol (2.5 MG/3ML) 0.083% nebulizer solutionIndicatio ns:Mild persistent asthma without complication Take 3 mL (2.5 mg) by nebulization every 4 (four) hours if needed for wheezing or shortness of breath. 75 mL 2 2024 Active fluticasone (Flonase) 50 MCG/ACT nasal spray Administer 2 sprays into each nostril Once per day. Shake gently. Before first use, prime pump. After use, clean tip and replace cap. 18 g Active amitriptyline (Elavil) 25 MG tablet TAKE 2 TABLETS BY MOUTH EVERY DAY AT BEDTIME 180 tablet 1 Active ondansetron ODT (Zofran-ODT) 4 MG disintegrating tablet DISSOLVE 1 TABLET ON TONGUE EVERY 6 HOURS Active Antacid/Antigas 400-400-40 MG/10ML oral suspension TAKE 10MLS EVERY 6 HOURS NEEDED FOR INDIGESTION Active loratadine (Claritin) 10 MG tablet TAKE 1 TABLET BY MOUTH EVERY DAY 90 tablet 1 Active D3 Super Strength 50 MCG (2000 UT) capsuleIndication s:Vitamin D deficiency TAKE 1 CAPSULE BY MOUTH EVERY MORNING 90 capsule 3 Active famotidine (Pepcid) 20 MG tablet Take 2 tablets (40 mg) by mouth at bedtime. 60 tablet 3 Active butalbital-acetam inophen-caffeine 50-325-40 MG tablet Take 1 tablet by mouth every 6 (six) hours if needed for headaches. 20 tablet 025 2024 Active Mometasone Furoate (Asmanex HFA) 100 MCG/ACT aerosol Inhale 1 Act (100 mcg) 2 times daily. 60 Act 11 025 2025 Active Tirzepatide-Weigh t Management (Zepbound) 2.5 MG/0.5ML solution auto-injector Inject 0.5 mL (2.5 mg) under the skin 1 (one) time per week. 2 mL 3 Active D3 Super Strength 50 MCG (2000 UT) capsuleIndication s:Vitamin D deficiency TAKE 1 CAPSULE BY MOUTH EVERY MORNING 90 capsule 3 024 2024 Discontinued fluticasone furoate (Arnuity Ellipta) 200 MCG/ACT inhaler Inhale 1 puff Once per day. Rinse mouth with water after use to reduce aftertaste and incidence of candidiasis. Do not swallow. 1 each 11 024 2024 Discontinued famotidine (Pepcid) 20 MG tablet TAKE 1 TABLET BY MOUTH TWICE DAILY NEEDED (for stomach acid) 024 2024 Discontinued(R eorder (will not trigger notification to Pharmacy)) Active Problems Problem Noted Date Diagnosed Date History of COVID-19 10/07/2023 Assessment & Plan (10/07/2023 4:06 PM EDT): Patient with sxs >1w now, doing fairly well, no indication for antiviral/paxlovid at this time Isolation until 10/10. She can be out of isolation on 10/11 for 5 more days if she has any residual sxs,otherwise she has probably had the virus for more than 1w now. Counseled to let close contacts within the past week, know about dx so they can be tested if needed. Rest (sleep at least 8 hours a night). Wash hands frequently Hydrate with plenty of water. Use saline nose drops Take Acetaminophen or Ibuprofen as Prn fever or discomfort Gargle with salt water and use throat sprays/lozenges prn Use heated, humidified air or take hot showers. If you have a fever, stay home and away from others (self isolation) until fever-free for 72 hours (temperature should be less than 100??F without medication). Chronic tension headaches 05/26/2023 Prediabetes 06/17/2022 Mild persistent asthma 02/04/2022 Assessment & Plan (10/07/2023 4:04 PM EDT): It seems to be controlled, I told her to start using albuterol q6h x 5d as Covid may trigger mild/mod bronchospasm. Continue Fluticasone daily Re consult prn Chronic gastroesophageal reflux disease 02/05/20 Chronic low back pain 02/04/2022 Chronic allergic rhinitis 02/04/2022 Major depression, recurrent, chronic 02/04/2022 Anxiety 02/04/2022 Chronic constipation 02/04/2022 BMI 39.0-39.9,adult 02/04/2022 Resolved Problems Problem Noted Date Diagnosed Date Resolved Date Shortness of breath 10/07/2023 04/14/19 25 Depressive disorder 06/16/2022 06/18/19 23 Encounters Date Type Department Care Team Description 04/14/2024 11:15 AM EST Office Visit [facility] [address] [place], [place] [phone] Isa Lujan DO Major depression, recurrent, chronic (CMS/HCC) (Primary Dx); Prediabetes; Mild persistent asthma without complication; Chronic allergic rhinitis; Chronic gastroesophageal reflux disease; Chronic constipation; Chronic tension-type headache, not intractable; Leukocytosis, unspecified type; Chest pain, unspecified type; Pelvic pain; Healthcare maintenance; BMI 39.0-39.9,adult 04/14/2024 Travel 04/11/2024 Travel 04/04/2024 Refill [facility] [address] [place], [place] [phone] Isa Lujan DO Vitamin D deficiency 03/03/2024 Telephone [facility] [address] [place], [place] [phone] Miladis Pina MA Recall Appt. 03/03/2024 Travel 02/24/2024 9:30 AM EST Office Visit [facility] OPTOMETRY [address] [place], [place] [phone] Presbyopia (Primary Dx) 02/08/2024 Refill [facility] [address] [place] [address] Isa Lujan DO from Last 3 Months Immunizations Name Administration Dates Next Due Pneumococcal Polysaccharide PPSV23 02/04/2022 Tdap 06/17/2022 Family History Medical History Relation Name Comments Breast cancer Brother Alcohol abuse Father Liver disease Father Diabetes Mother Hypertension Mother Diabetes Sister Hypertension Sister Ovarian cancer Sister Relation Name Status Comments Brother Father Mother Sister Social History Tobacco Use Types Packs/Day Years Used Date Smoking Tobacco: Former Cigarettes Q uit: 01/15/2017 Passive Smoke Exposure: Past Smokeless Tobacco: Never Tobacco Cessation:Counseling Given: Not Answered Alcohol Use Standard Drinks/Week Comments Never 0 [...] Don't know 12/15/2021 10 :21 AM EDT Last Filed Vital Signs Vital Sign Reading [...] Mass Index 39.97 04/14/2024 11:39 AM EST Plan of Treatment Health Maintenance Due Date Last Done Comments CT Colonography 1971 Colonoscopy 1971 Colorectal Cancer Screening 1971 FIT DNA/Cologuard 1971 FIT 1971 FOBT 1971 Sigmoidoscopy 1971 Alcohol/Substance Use Screening 1983 Family Planning (PISQ) 07/30/1986 Hepatitis B Vaccines (1 of 3 - 19+ 3-dose series) 07/30/1990 Pap Smear 07/30/1992 Cervical Cancer Screening 07/30/2001 HPV/Cotest 07/30/2001 Zoster Vaccines (1 of 2) 07/30/2021 Pneumococcal Vaccine: 50+ Years (2 of 2 - PCV) 02/04/2023 02/04/2022 COVID-19 Vaccine (3 - 2023-2 5 season) 2023 05/31/2020, 05/03/2020 Influenza Vaccine (#1) 2023 Depression Monitoring (PHQ-9) 03/09/2024, 09/07/2023 Diabetes: Hemoglobin A1C 04/29/2024 024, 06/17/2022, 02/18/2022 SDOH Screening 08/29/2024 08/30/2023 Depression Screening 09/06/2024 09/07/2023, 09/07/2023 Tobacco Screening 04/14/2025 04/14/2024 Mammogram 05/26/2025 05/27/2023 DTaP/Tdap/Td Vaccines (2 - T d or Tdap) 06/17/2032 06/17/2022 RSV Patients and Patients Aged 60 years or older (1 - 1-dose 75+ series) 07/30/2046 HIV Screening Completed 04/30/2023, 02/18/2022 Hepatitis C Screening Completed 04/30/2023 , 02/18/2022 HIB Vaccines Aged Out No longer eligi ble based on patient's age to complete this topic HPV Vaccines Aged Out No longer eligi ble based on patient's age to complete this topic Hepatitis A Vaccines Aged Out No long er eligible based on patient's age to complete this topic IPV Vaccines Aged Out No longer eligi ble based on patient's age to complete this topic Meningococcal Vaccine Aged Out No negrita judy eligible based on patient's age to complete this topic RSV under 20 months Aged Out No longe r eligible based on patient's age to complete this topic Rotavirus Vaccines Aged Out No longer eligible based on patient's age to complete this topic Procedures Procedure Name Priority Date/Time Associated Diagnosis Comments BI MAMMOGRAM SCREENING TOMOSYNTHESIS BILATERAL Routine 05/27/2023 4:08 PM EDT HEPATITIS C AB W/REFL TO HCV RNA, QN, PCR Routine 04/30/2023 11:39 AM EDT Prediabetes HIV 1/2 ANTIGEN/ANTIBODY, FOURTH GENERATION W/RFL Routine 04/30/2023 11:39 AM EDT Prediabetes HEMOGLOBIN A1C Routine 04/30/2023 11:39 AM EDT Prediabetes from Last 3 Months or Most Recently Relevant to Health Maintenance Results * BI Mammogram Screening Tomosynthesis Bilateral (05/27/2023 4:08 PM EDT) Anatomical Region Laterality Modality Breast Bilateral Mammography 05/27/2023 4:08 PM EDT Narrative 06/22/2023 11:17 AM EDT ? [facility] ? [address] [place] [address] ? Mammography Report ? Signed ? Patient: Lior,Radha ?MR#: [id number] ?? [id number] ? : 1970 ?Acct:[id number] ? Age/Sex: 52 / F ?ADM Date: 05/27/23 ? Loc: HO.MAMMO ? Attending Dr: Isa Lujan DO ? Ordering Physician: Isa Lujan DO ?Results: 1N ?? egative ? Date of Service: 05/27/23 ?Follow Up: 1 Year From Orig ?? inal Mammogram ? Procedure(s): MM tomosynthesis screening BI ?? Accession Number(s): [id number] ? cc: Isa Lujan DO ? EXAMINATION: ?? MM SCREENING DIGITAL BREAST TOMOSYNTHESIS, BILATERAL ? CLINICAL INFORMATION: ? Screening. Asymptomatic. ? COMPARISON: ?? Mammography: This study is compared with prior exams dating back to ?? 2014. ? TECHNIQUE: ?? Digital breast tomosynthesis is performed in both the craniocaudal and ?? mediolateral oblique views along with computer-aided detection (CAD). ?? Synthesized 2D images are generated from the tomosynthesis. ? FINDINGS: ?? There are scattered areas of fibroglandular density (ACR BI-RADS breast ?? composition Category b). ? There are no significant masses, abnormal calcifications, or other ?? abnormalities. ? MM/MM tomosynthesis screening BI ?? IMPRESSION: ?? No mammographic evidence of malignancy. ? ASSESSMENT: ? BI-RADS BI-RADS 1 - Negative ? RECOMMENDATION: ?? Routine annual mammography screening. ? 1 year F/U ? This examination should not preclude the clinical evaluation of a ?? suspicious palpable abnormality. ? This patient's information was entered into a reminder system with a ?? target due date for their next mammogram. ? Dictated By: ?Savanah Prajapati MD ? Signed By: ?<Electronically signed by Savanah Prajapati MD in OV> ? 06/22/233 ? DD/ 1608 ? TD/TT: ? Lapel Padder: ? Procedure Note Donjumana, Image - 06/22/2023 [facility] [address] [place] [address] Mammography Report Signed Patient: Radha TinajeroMR#: [id number] : 1970Acct:[id number] Age/Sex: 52 / FADM Date: 05/27/23 Loc: HO.MAMMO Attending Dr: Isa Lujan DO Ordering Physician: Isa Lujanults: 1N egative Date of Service: 05/27/23Follow Up: 1 Year From Orig inal Mammogram Procedure(s): MM tomosynthesis screening BI Accession Number(s): [id number] cc: Isa Lujan DO EXAMINATION: MM SCREENING DIGITAL BREAST TOMOSYNTHESIS, BILATERAL CLINICAL INFORMATION: Screening. Asymptomatic. COMPARISON: Mammography: This study is compared with prior exams dating back to 2015. TECHNIQUE: Digital breast tomosynthesis is performed in both the craniocaudal and mediolateral oblique views along with computer-aided detection (CAD). Synthesized 2D images are generated from the tomosynthesis. FINDINGS: There are scattered areas of fibroglandular density (ACR BI-RADS breast composition Category b). There are no significant masses, abnormal calcifications, or other abnormalities. MM/MM tomosynthesis screening BI IMPRESSION: No mammographic evidence of malignancy. ASSESSMENT: BI-RADS BI-RADS 1 - Negative RECOMMENDATION: Routine annual mammography screening. 1 year F/U This examination should not preclude the clinical evaluation of a suspicious palpable abnormality. This patient's information was entered into a reminder system with a target due date for their next mammogram. Dictated By: Savanah Prajapati MD Signed By: <Electronically signed by Savanah Prajapati MD in OV> 06/22/23 1113 DD/ 1608 TD/TT: Lapel Padder: us Isa Lujan DO IMG BI PROCEDURES Final Resu lt * Hepatitis C Antibody with Reflex to HCV, RNA, Quantitative, Real-Time PCR (04/30/2023 11:39 AM EDT) Hepatitis C Antibody Nonreactive Nonreactive [facility] Comment:Antibodies to HCV no t detected; does not exclude early acuteHCV infection. Blood Venous blood specimen / Unknown 04/30/2023 11:39 AM EDT 04/30/2023 1:01 PM EDT us Isa Lujan DO LAB BLOOD ORDERABLES Final R esult [facility] [address] [place] [phone] * HIV-1/2 Antigen and Antibodies, Fourth Generation, with Reflexes (04/30/2023 11:39 AM EDT) HIV AB/AG Nonreactive Nonreactive [facility] Comment:HIV-1 p24 Ag and/or HIV-1/HIV-2 Ab not detected.A test result that is nonreactive does not exclude thepossibility of exposure to or infection with HIV-1 and/orHIV-2. Nonreactive results in this assay for individualswith prior exposure to HIV-1 and/or HIV-2 may be due toantigen and antibody levels that are below the limit ofdetection of this assay.The [employer] HIV Ag/Ab Combo assay result andsupplemental assay results should be interpreted inconjunction with the patient's clinical presentation,history and other laboratory results. If the results areinconsistent with clinical evidence, additional testing issuggested to confirm the result. Blood Venous blood specimen / Unknown 04/30/2023 11:39 AM EDT 04/30/2023 1:01 PM EDT us Isa Lujan DO LAB BLOOD ORDERABLES Final R esult Performing Organization Address [facility] Co de Phone Number [facility] [address] [place] [address] [phone] * Hemoglobin A1c (04/30/2023 11:39 AM EDT) Hemoglobin A1c 5.5 <6.0 % [facility] Comment:Hemoglobin A1C Refer ence Range Adults: 4.8 - 6.0 % Non diabetic: < 6.0 % Goal: < 7.0 %Additional Action Suggested: > 8.0 %Note: Hemoglobin A1c results are invalid for patients with abnormal amounts of HbF. Blood transfusions may impact the HbA1c concentration in the patient sample. Estimated Average Glucose 111 mg/dL [facility] Comment:eAG = Estimated ave rage glucose which is %A1C expressed asaverage glucose, using the formula of the N5E-KmncfklKvjpiba Glucose study (ADAG), Diabetes Care, Vol.31,#8,Sep. 2007 Blood Venous blood specimen / Unknown 04/30/2023 11:39 AM EDT 04/30/2023 1:01 PM EDT us Isa Tai DO LAB BLOOD ORDERABLES Final R esult Performing Organization Address [facility]/ZIP Co de Phone Number [facility] [address] [place] [phone] from Last 3 Months or Most Recently Relevant to Health Maintenance Insurance [facility] C3 Care Teams Stock Clerk Relationship Specialty Start Date End Date Isa Lujan DO [address] [place] [phone] PCP - General Family Medicine 04/22/20
--- OUTSIDE RECORDS SUMMARY | 2024-04-14 18:14 | XMS_ITS | Encounter Summary ---
Author Organization [employer] Address [address] [facility] [address] [place] [address] Care Team Providers Care Hotel Maintenance Technician Name Role Phone Isa Lujan DO Primary Care Provider + [phone] Reason for Visit * Reason Comments Med Refill Encounter Details Date Type Department Care Team ([facility] st Contact Info) Description 01/25/2023 Refill [facility] MEDICINE [address] [place] [address] Isa Lujan DO [address] [place], [place] [phone] Mild persistent asthma without complication Social History Tobacco Use Types Packs/Day Years Used Date Smoking Tobacco: Former Cigarettes Q uit: 01/15/2017 Passive Smoke Exposure: Past Smokeless Tobacco: Never Alcohol Use Standard Drinks/Week Comments Never 0 (1 standard drink = 0.6 oz pur e alcohol) Depression Answer Date Recorded Patient Health Questionnaire-9 Score 10 06/17/2022 Housing Stability Answer Date Recorded What is your housing situation today? I have cinthya diaz 12/18/[address] you li ve. Do you have problems with any of the following? None of the above 12/18/2022 Food Insecurity Answer Date Recorded Within the past 12 months, y ou worried that your food would run out before you got money to buy more: Never True 12/18/2022 Within the past 12 months,th e food you bought just didn't last and you didn't have enough money to get more: Never True 04/2022 Transportation Answer Date Recorded In the past 12 months, has l ack of transportation kept you from medical appts, meetings, work or from getting things needed for daily living? No 12/18/2022 Utilities Answer Date Recorded In the past 12 months, has t he electric, gas, oil or water company threatened to shut off services in your home? No 12/18/2022 Depression Answer Date Recorded Patient Health Questionnaire-2 Score 4 06/17/2022 Comments Unknown Sex and Gender Information Value Date Recorded Sex Assigned at Female 12/15/2021 10:21 AM EDT Legal Sex Female 10:21 AM EDT Gender Identity Female 12/15/2021 10:21 AM EDT Sexual Orientation Don't know 12/15/2021 10 :21 AM EDT documented as of this encounter Plan of Treatment Not on file documented as of this encounter Visit Diagnoses Diagnosis Mild persistent asthma without complication documented in this encounter Additional Health Concerns Assessment Noted Time PHQ-9 Depression Total Score: 10 023 10:47 AM EDT documented as of this encounter Care Teams Hotel Maintenance Technician Relationship Specialty Start Date End Date Isa Lujan DO [address] [place] [phone] PCP - General Family Medicine 04/22/20 documented as of this encounter
[2024-04-16 10:25] LABS: H Pylori Breath Test Negative (Negative)
== END 2024-04-14 17:55 | disposition home or self-care (01) ==
LOC: HO.HHCLNP 17:54
PROVIDERS: Visit Provider Family Medicine
DX: K21.9 Gastro-esophageal reflux disease without esophagitis (principal)
CPT/HCPCS: 83013

== ENCOUNTER 2024-05-17 08:19 | Outpatient (REF) | payer MEDICAID, SELFPAY ==
--- NOTE | ~2024-05-17 | US_ITS ---
CLINICAL HISTORY: intermittent pelvic pain cramping Transabdominal and transvaginal pelvic ultrasound Comparison: None Findings: Uterus 8.5 x 4.6 x 4.9 cm. Endometrium 4 mm. No significant free fluid. Right ovary 2.3 x 1.7 x 1.9 cm. Left ovary 2.3 x 1.4 x 2.0 cm. No significant focal abnormality. Impression: No significant abnormality This document has been electronically signed by: Marcelino Salas MD on 05/17/2024 19:45:32
--- NOTE | ~2024-05-17 | US_ITS ---
CLINICAL HISTORY: increasing epigastric pain Ultrasound of the abdomen Comparison: CT/SR - CT ABDOMEN PELVIS WO IV CON - 01/19/22 18:01 EST Findings: The liver is normal in size, measuring 13.1cm. Increased echogenicity without focal lesions. Hepatopetal flow is visualized within the portal vein. No intrahepatic biliary ductal dilatation. Gallbladder is filled with stones. No gallbladder wall thickening or pericholecystic fluid. Negative Acevedo's sign. The common bile duct is normal, measuring 0.3cm. Unremarkable limited evaluation of the pancreas. The right kidney is normal in echogenicity and size, measuring 10.0cm. No nephrolithiasis or hydronephrosis. Lobular contour of the kidney, also present on the prior study. The left kidney is normal echogenicity and size, measuring 10.9cm. No nephrolithiasis or hydronephrosis. The spleen is without focal lesions and normal in size, measuring 11.6cm. The aorta and IVC are unremarkable. No ascites. Impression: Cholelithiasis without acute cholecystitis. Hepatic steatosis. This document has been electronically signed by: Rena Drake MD on 05/17/2024 19:11:24
--- OUTSIDE RECORDS SUMMARY | 2024-05-17 08:31 | XMS_ITS | Encounter Summary ---
Author Organization [employer] Address [address] [facility] [address] [place] [address] Care Team Providers Care Bag Cutter Name Role Phone Isa Lujan DO Primary Care Provider [phone] Encounter Details Date Type Department Care Team (Late st Contact Info) Description 01/30/2022 Orders Only [facility] [address] [place] [address] Isa Jacobson LPN Social History Tobacco Use Types Packs/Day Years Used Date Smoking Tobacco: Never Assessed Comments Unknown Sex and Gender Information Value Date Recorded Sex Assigned at Female 12/15/2021 10:21 AM EDT Legal Sex Female 10:21 AM EDT Gender Identity Female 12/15/2021 10:21 AM EDT Sexual Orientation Don't know 12/15/2021 10 :21 AM EDT documented as of this encounter Plan of Treatment Upcoming Encounters Date Type Department Care Team (Late st Contact Info) Description 07/05/2024 10:45 AM EDT Procedure Visit [facility] MEDICINE [address] [place] [address] Isa Lujan DO [address] [place] [address] documented as of this encounter Visit Diagnoses Not on filedocumented in this encounter Care Teams Bag Cutter Relationship Specialty Start Date End Date Isa Lujan DO [address] [place] [phone] PCP - General Family Medicine 04/22/20 documented as of this encounter
--- OUTSIDE RECORDS SUMMARY | 2024-05-17 08:31 | XMS_ITS | Encounter Summary ---
Author Organization [employer] Address [address] [facility] [address] [place] [address] Care Team Providers Care Biochemistry Professor Name Role Phone Isa Lujan DO Primary Care Provider + [phone] Reason for Visit * Reason Comments Med Refill Encounter Details Date Type Department Care Team ([facility] st Contact Info) Description 01/25/2023 Refill [facility] [address] [place] [address] Isa Lujan DO [address] [place], [place] [phone] Mild persistent asthma without complication Social History [...] Description 07/05/2024 10:45 AM EDT Procedure Visit [facility] MED[facility] [address] [place] [address] Isa Lujan DO [address] [place] [address] documented as of this encounter Visit Diagnoses Diagnosis Mild persistent asthma without complication documented in this encounter Additional Health Concerns Assessment Noted Time PHQ-9 Depression Total Score: 10 023 10:47 AM EDT documented as of this encounter Care Teams Biochemistry Professor Relationship Specialty Start Date End Date Isa Lujan DO [address] [place] [phone] PCP - General Family Medicine 04/22/20 documented as of this encounter
--- OUTSIDE RECORDS SUMMARY | 2024-05-17 08:31 | XMS_ITS | Clinical Summary ---
Author Organization [employer] Address [address] [facility] 7t [place] [address] Care Team Providers Care Marine Welder Name Role Phone Isa Lujan DO Primary Care Provider [phone] Allergies No known active allergies Medications senna [...] FOR HEADACHE 40 tablet 2 023 Active omeprazole (PriLOSEC) [address] capsuleIndication s:Chronic GERD take 1 capsule (20MG) by oral route every day before a meal 90 capsule 3 024 Active Diclofenac Sodium 1 % gel Apply 2 g topically if needed in the morning, at noon, in the evening, and at bedtime (pain). 150 g 3 024 Active sodium chloride ([place] Nasal Pesotum) 0.65 % nasal spray Administer 1 spray into each nostril if needed for congestion. 30 mL 024 2024 Active acetaminophen (Tylenol 8 Hour) 650 MG ER tablet Take 1 tablet (650 mg) by mouth every 8 (eight) hours if needed for mild pain or headaches (fever). Do not crush, chew, or split. 90 tablet 1 024 2024 Active albuterol (2.5 MG/3ML) 0.083% nebulizer solutionIndicatio ns:Mild persistent asthma without complication Take 3 mL (2.5 mg) by nebulization every 4 (four) hours if needed for wheezing or shortness of breath. 75 mL 2 024 2024 Active fluticasone (Flonase) 50 MCG/ACT nasal spray Administer 2 sprays into each nostril Once per day. Shake gently. Before first use, prime pump. After use, clean tip and replace cap. 18 g Active ondansetron ODT (Zofran-ODT) 4 MG disintegrating [...] mouth at bedtime. 60 tablet 3 Active Mometasone Furoate (Asmanex HFA) 100 MCG/ACT aerosol Inhale 1 Act (100 mcg) 2 times daily. 60 Act 11 025 2025 Active Tirzepatide-Weigh t Management (Zepbound) 2.5 MG/0.5ML solution auto-injector Inject 0.5 mL (2.5 mg) under the skin 1 (one) time per week. 2 mL 3 025 Active docusate sodium (Colace) 100 MG capsule TAKE 1 CAPSULE BY MOUTH TWICE DAILY IN THE MORNING AND AT BEDTIME 180 capsule 3 Active Fiber-Lax 625 MG tablet TAKE 1 TABLET BY MOUTH TWICE DAILY IN THE MORNING AND AT BEDTIME 180 tablet 3 025 Active amitriptyline (Elavil) 25 MG tablet TAKE 2 TABLETS BY MOUTH EVERY DAY AT BEDTIME 180 tablet 3 025 Active Fiber-Lax 625 MG tablet TAKE 1 TABLET BY MOUTH TWICE DAILY IN THE MORNING AND AT BEDTIME 180 tablet 3 024 2024 Discontinued docusate sodium (Colace) 100 MG capsule TAKE 1 CAPSULE BY MOUTH TWICE DAILY IN THE MORNING AND AT BEDTIME 180 capsule 3 024 2024 Discontinued amitriptyline (Elavil) 25 MG tablet TAKE 2 TABLETS BY MOUTH EVERY DAY AT BEDTIME 180 tablet 1 024 2024 Discontinued butalbital-acetam inophen-caffeine 50-325-40 MG tablet Take 1 tablet by mouth every 6 (six) hours if needed for headaches. 20 tablet 025 2024 Active Problems Problem Noted Date Diagnosed Date [...] Encounters Date Type Department Care Team Description 05/02/2024 Telephone [facility] MEDICINE [address] [place] [address] Isa Lujan DO Prior Authorization (Zepbound denial) 05/02/2024 Refill [facility] MEDICINE [address] [place] [address] Isa Lujan DO 04/28/2024 Population Health Risk Score [facility] () Department [address] [place] [phone] Provider, Population Health Generic 04/17/2024 Telephone [facility] MEDICINE [address] [place] [address] Kayla Bucio LPN 04/14/2024 11:15 AM EST Office Visit [facility] MEDICINE [address] [place] [address] Isa Lujan DO Major depression, recurrent, chronic (CMS/HCC) (Primary Dx); Prediabetes; Mild persistent asthma without complication; Chronic allergic rhinitis; Chronic gastroesophageal reflux disease; Chronic constipation; Chronic tension-type headache, not intractable; Leukocytosis, unspecified type; Chest pain, unspecified type; Pelvic pain; Healthcare maintenance; BMI 39.0-39.9,adult 04/14/2024 Orders Only [facility] [address] [facility] [place] [address] Isa Lujan DO 04/14/2024 Travel 04/11/2024 Travel 04/04/2024 Refill [facility] [address] [facility] [place] [address] Isa Lujan, Vitamin D deficiency 03/03/2024 Telephone [facility] MEDICINE [address] [place] [address] Miladis Pina MA Recall Appt. 03/03/2024 Travel 02/24/2024 9:30 AM EST Office Visit [facility] OPTOMETRY [address] [place] [address] Presbyopia (Primary Dx) from Last 3 Months Immunizations Name Administration [...] 04/14/2024 11:39 AM EST Plan of Treatment Upcoming Encounters Date Type Department Care Team (Late st Contact Info) Description 07/05/2024 10:45 AM EDT Procedure Visit [facility] MEDICINE [address] [place] [address] Isa Lujan DO [address] [place] [address] Health Maintenance Due Date Last Done Comments [...] Procedure Name Priority Date/Time Associated Diagnosis Comments HELICOBACTER PYLORI, UREA BREATH TEST Routine 04/14/2024 12:44 PM EST BI MAMMOGRAM SCREENING TOMOSYNTHESIS BILATERAL Routine 05/27/2023 4:08 PM EDT HEPATITIS C AB W/REFL TO HCV RNA, QN, PCR Routine 04/30/2023 11:39 AM EDT Prediabetes HIV 1/2 ANTIGEN/ANTIBODY, FOURTH GENERATION W/RFL Routine 04/30/2023 11:39 AM EDT Prediabetes HEMOGLOBIN A1C Routine 04/30/2023 11:39 AM EDT Prediabetes from Last 3 Months or Most Recently Relevant to Health Maintenance Results * Helicobacter pylori, Urea Breath Test (04/14/2024 12:44 PM EST) H. pylori Breath Test Negative Negative [facility] Comment:Antimicrobials, prot on pump inhibitors and bismuthpreparations are known to suppress H. pylori. Ingestingthese medications within two weeks prior to performing thebreath test may produce negative test results. A positiveresult is still clinically valid. 04/14/2024 12:4 4 PM EST 04/14/2024 5:55 PM EST us Isa Lujan DO LAB BLOOD ORDERABLES Final R esult [facility] [address] [place] [phone] * BI Mammogram Screening Tomosynthesis Bilateral (05/27/2023 4:08 PM EDT) Anatomical Region Laterality Modality Breast Bilateral Mammography 05/27/2023 4:08 PM EDT Narrative 06/22/2023 11:17 AM EDT ? [facility] ? [address] ?[place] [address] ? Mammography Report ? Signed ? Patient: Lior,Radha ?MR#: [id number] ?? [id number] ? : 1970 ?Acct:[id number] ? Age/Sex: 52 / F ?ADM Date: 04/11/24 ? Loc: HO.MAMMO ? Attending Dr: Isa Lujan DO ? Ordering Physician: Isa Lujan DO ?Results: 1N ?? egative ? Date of Service: 05/27/23 ?Follow Up: 1 Year From Orig ?? inal Mammogram ? Procedure(s): MM tomosynthesis screening BI ?? Accession Number(s): [id number] ? cc: Isa Lujan DO ? EXAMINATION: [...] by Savanah Prajapati MD in OV> ? 06/22/23 1113 ? DD/ 1608 ? TD/TT: ? Supervisor Metal Furniture Assembly: ? Procedure Note Donalbertter, Image - 06/22/2023 [facility] [address] [place], [place] [address] Mammography Report Signed Patient: Radha TinajeroMR#: [id number] : 1970Acct:[id number] Age/Sex: 52 / FADM Date: 05/27/23 Loc: HO.MAMMO Attending Dr: Isa Lujan DO Ordering Physician: Isa Lujanults: 1N egative Date of Service: 05/27/23Follow Up: 1 Year From Orig inal Mammogram Procedure(s): MM tomosynthesis screening BI Accession Number(s): [id number] cc: Isa Lujan DO EXAMINATION: MM SCREENING [...] in OV> 06/22/23 1113 DD/ 1608 TD/TT: Supervisor Metal Furniture Assembly: Isa Lujan DO IMG BI PROCEDURES Final Resu lt * Hepatitis C Antibody with Reflex to HCV, RNA, Quantitative, Real-Time PCR (04/30/2023 11:39 AM EDT) Hepatitis C Antibody Nonreactive Nonreactive [facility] Comment:Antibodies to HCV no t detected; does not exclude early acuteHCV infection. Blood Venous blood specimen / Unknown 04/30/2023 11:39 AM EDT 04/30/2023 1:01 PM EDT Isa Lujan DO LAB BLOOD ORDERABLES Final R esult [facility] [address] [place] [phone] * HIV-1/2 Antigen and Antibodies, Fourth Generation, with Reflexes (04/30/2023 11:39 AM EDT) HIV AB/AG Nonreactive Nonreactive [facility] Comment:HIV-1 p24 Ag and/or HIV-1/HIV-2 Ab not detected.A test result that is nonreactive does not exclude thepossibility of exposure to or infection with HIV-1 and/orHIV-2. Nonreactive results in this assay for individualswith prior exposure to HIV-1 and/or HIV-2 may be due toantigen and antibody levels that are below the limit ofdetection of this assay.[employer] HIV Ag/Ab Combo assay result andsupplemental assay results should be interpreted inconjunction with the patient's clinical presentation,history and other laboratory results. If the results areinconsistent with clinical evidence, additional testing issuggested to confirm the result. Blood Venous blood specimen / Unknown 04/30/2023 11:39 AM EDT 04/30/2023 1:01 PM EDT Isa Tai DO LAB BLOOD ORDERABLES Final R esult Performing Organization Address [facility] Co de Phone Number [facility] [address] [place] [address] [phone] * Hemoglobin A1c (04/30/2023 11:39 AM EDT) Hemoglobin A1c 5.5 <6.0 % [facility] Comment:Hemoglobin A1C Refer ence Range Adults: 4.8 - 6.0 % Non diabetic: < 6.0 % Goal: < 7.0 %Additional Action Suggested: > 8.0 %Note: Hemoglobin A1c results are invalid for patients with abnormal amounts of HbF. Blood transfusions may impact the HbA1c concentration in the patient sample. Estimated Average Glucose 111 mg/dL [facility] Comment:eAG = Estimated ave rage glucose which is %A1C expressed asaverage glucose, using the formula of the K8D-XdagdkdTkbcvdm Glucose study (ADAG), Diabetes Care, Vol.31,#8,Sep. 2007 Blood Venous blood specimen / Unknown 04/30/2023 11:39 AM EDT 04/30/2023 1:01 PM EDT Isa Lujan DO LAB BLOOD ORDERABLES Final R esult Performing Organization Address City/[facility] Co de Phone Number [facility] [address] [place] [address] [phone] from Last 3 Months or Most Recently Relevant to Health Maintenance Insurance [facility] C3 Care Teams Marine Welder Relationship Specialty Start Date End Date Isa Lujan DO [address] [place] [address] PCP - General Family Medicine 04/22/20
--- OUTSIDE RECORDS SUMMARY | 2024-05-17 08:31 | XMS_ITS | Encounter Summary ---
Author Organization [employer] Address [address] [facility] 7t [place] [address] Care Team Providers Care Power Equipment Mechanics Instructor Name Role Phone Isa Lujan DO Primary Care Provider [phone] Encounter Details Date Type Department Care Team (Late Contact Info) Description 05/22/2022 Orders Only [facility] CHC MED & PEDS [address] [place] [address] Isa Jacobson LPN Social History Tobacco Use [...] Description 07/05/2024 10:45 AM EDT Procedure Visit [facility] MEDICINE [address] [place] [address] Isa Lujan DO [address] [place] [address] documented as of this encounter Visit Diagnoses Not on filedocumented in this encounter Additional Health Concerns Assessment Noted Time PHQ-9 Depression Total Score: 14 02/04/ 022 11:11 AM EST documented as of this encounter Care Teams Power Equipment Mechanics Instructor Relationship Specialty Start Date End Date Isa Lujan DO [address] [place] [address] PCP - General Family Medicine 04/22/20 documented as of this encounter
--- OUTSIDE RECORDS SUMMARY | 2024-05-17 08:31 | XMS_ITS | Encounter Summary ---
Author Organization [employer] Address [address] [facility] 7t [place] [address] Care Team Providers Care Hot Tar Roofer Helper Name Role Phone Isa Lujan DO Primary Care Provider [phone] Reason for Visit * Reason Onset Date Comments Prior Authorization 05/02/2024 Zepbound den ial Encounter Details Date Type Department Care Team ([facility] Contact Info) Description 05/02/2024 Telephone [facility] MEDICINE [address] [place] [address] Isa Lujan DO [address] [place] [address] Prior Authorization (Zepbound denial) Social History Tobacco Use Types Packs/Day Years [...] AM EDT documented as of this encounter Miscellaneous Notes * Telephone Encounter - Effie Capellan RN - 05/02/2024 4:17 PM EDT SHANELL COOPER for Zepbound 2.5mg/0.5mL was denied by insurance. Denial scanned into chart. documented in this encounter Plan of Treatment Upcoming Encounters Date Type Department Care Team (Late st Contact Info) Description 07/05/2024 10:45 AM EDT Procedure Visit [facility] MEDICINE [address] [place] [address] Isa Lujan DO [address] [place] [address] documented as of this encounter Visit Diagnoses Not on filedocumented in this encounter Additional Health Concerns Assessment Noted Time PHQ-9 Depression Total Score: 11 024 11:02 AM EDT documented as of this encounter Care Teams Hot Tar Roofer Helper Relationship Specialty Start Date End Date Isa Lujan DO [address] [place] [address] PCP - General Family Medicine 04/22/20 documented as of this encounter
--- OUTSIDE RECORDS SUMMARY | 2024-05-17 08:31 | XMS_ITS | Encounter Summary ---
Author Organization [employer] Address [address] [facility] 7t [place] [address] Care Team Providers Care Car Shagger Name Role Phone Isa Lujan DO Primary Care Provider [phone] Encounter Details Date Type Department Care Team (Late Contact Info) Description 04/22/2022 Orders Only [facility] CHC MED & PEDS [address] [place] [address] Isa Jacobson LPN Social History Tobacco Use [...] Description 07/05/2024 10:45 AM EDT Procedure Visit [facility] MEDICINE [address] [place] [address] Isa Lujan DO [address] [place] [address] documented as of this encounter Visit Diagnoses Not on filedocumented in this encounter Additional Health Concerns Assessment Noted Time PHQ-9 Depression Total Score: 14 02/04/ 022 11:11 AM EST documented as of this encounter Care Teams Car Shagger Relationship Specialty Start Date End Date Isa Lujan DO [address] [place] [address] PCP - General Family Medicine 04/22/20 documented as of this encounter
== END 2024-05-17 08:20 | disposition home or self-care (01) ==
LOC: HO.US 08:19
PROVIDERS: PCP Family Medicine; Visit Provider Family Medicine
DX: R10.2 Pelvic and perineal pain (principal); K21.9 Gastro-esophageal reflux disease without esophagitis
CPT/HCPCS: 76700; 76830; 76856

== ENCOUNTER → 2024-05-17 08:21 | Outpatient (BNV) | payer MEDICAID, SELFPAY | PROVIDERS: PCP Family Medicine; Visit Provider Radiology Diagnostic Radiology | DX: R10.13 Epigastric pain (principal); R10.2 Pelvic and perineal pain | CPT/HCPCS: 76700; 76856 ==

== ENCOUNTER 2024-05-24 12:57 | Outpatient (AMB) | payer MEDICAID, SELFPAY ==
--- NOTE | 2024-05-24 12:59 | MHC.OFFVIS ---
Vital Signs 05/24/24 13:01 Height 5 ft 6 in Weight 231 lb 7.766 oz BMI 37.4 BP 120/66 Blood Pressure Location Lt brachial Position Sitting Pulse 65 Pulse Source Monitor Intake Visit Reasons: X RAY EXAMINER OF AIRCRAFT/Dr Lujan/CHRISTEN r/s 05/23 Panel Edge Painter Required: Yes Panel Edge Painter Name: ELADIO [id number] Allergies No Known Allergies Allergy (Verified 12/30/23 23:24) Medication List - Last Reconciled 05/24/24 by Fernando Glynn MD alum-mag hydroxide-simeth 200-200-20 mg/5 mL (Maalox Advanced) 10 mL PO Q6H PRN amitriptyline 10 mg PO BEDTIME aspirin 81 mg PO DAILY atorvastatin 40 mg PO DAILY cholecalciferol (vitamin D3) (Vitamin D3) 50 mcg PO QAM docusate sodium 100 mg PO BEDTIME famotidine (Pepcid) 20 mg PO BID PRN fluoxetine 40 mg PO QAM fluticasone propionate 50 mcg/actuation 2 sprays intranasal DAILY fluticasone propionate 220 mcg/actuation (Flovent HFA) 1 puff inhalation BID loratadine 10 mg PO DAILY lorazepam 1 mg PO BEDTIME PRN metoprolol succinate ER 25 mg PO DAILY nitroglycerin mg sublingual ondansetron 4 mg PO Q6H pantoprazole 40 mg PO DAILY sennosides (Natural Senna Laxative) 17.2 mg (2 x 8.6 mg) PO BEDTIME zolpidem 10 mg PO BEDTIME PRN HPI Comments Details: Radha has been referred for cardiac consultation. Per the original referral note from last year, it seems that she was complaining of substernal chest pains thought to be atypical in nature. In the interim, she has had a hospitalization at [facility] last month. She underwent workup with an echocardiogram/stress test, reportedly abnormal. She was not discharged for outpatient follow-up. Patient states that she gets rather pain in the epigastric lower substernal area which can happen any time. No clear exertional patterns and can happen with or without activity. Some shortness of breath at times. No documented coronary disease or myocardial infarction or cardiomyopathy. [facility] Medical History (Updated 05/24/24 @ 13:23 by Fernando Glynn MD) Pre-diabetes Family History Mother Diabetes 1.5, managed as type 2 HTN (hypertension) Heart disease High cholesterol Father No problems noted. Sister HTN (hypertension) Diabetes 1.5, managed as type 2 High cholesterol Sister Diabetes 1.5, managed as type 2 HTN (hypertension) High cholesterol Heart disease Social History Household Members: Family and Children Alcohol intake: current Patient Tobacco Use Status: Never used Tobacco Review of Systems Const Denies weakness ENT Denies dizziness Card Reports chest pain, Denies chest pain with activity, Denies syncope, Denies rapid heart rate, Denies pedal edema, Denies edema, Denies leg edema, Denies lightheadedness, Denies palpitations, Denies dyspnea, Denies dyspnea on exertion and Denies orthopnea Resp Denies cough, Denies dyspnea and Denies dyspnea on exertion GI Denies hematochezia and Denies change in stool character Musc Denies abnormal gait, Denies muscle cramps, Denies muscle weakness, Denies numbness, Denies radiating pain into limb and Denies tingling Neuro Denies abnormal gait, Denies dizziness, Denies syncope, Denies numbness, Denies tingling and Denies weakness Endo Denies palpitations Physical Exam Vital Signs: Last Vital Signs Pulse 65 05/24/24 13:01 BP 120/66 05/24/24 13:01 BMI result Body Mass Index 37.4 Const General: comfortable and no acute distress Orientation/consciousness: patient oriented x3 HEENT Other: Unremarkable Head: Yes normal to inspection Neck Neck: Yes normal visual inspection Chest Chest palpation & inspection: normal inspection of the chest Resp Auscultation: clear to auscultation bilaterally Cardio Palpation: normal PMI Heart sounds: S1 normal heart sound present, S2 normal heart sound present, no gallops, no murmurs and no rubs GI Palpation (GI): Soft to palpation Back/Spine/Pelvis Other: unremarkable Skin General skin exam: no rashes or lesions noted Neuro General: patient oriented x3 Extrem General: Yes normal to inspection Psych Mental Status: mental status grossly normal Office Procedures EKG Details: EKG with underlying sinus rhythm at 65/Min; nonspecific ST-T changes; [place]. [address]-[id number], Complete Assessment & Plan Assessment & Plan (1) Precordial chest pain: Code(s): R07.2 - Precordial pain Category: Medical Plan [facility] records reviewed. Echocardiogram with LVEF of 50-55%. Hypokinesis of the basal to mid lateral wall. No significant valvular findings. Myocardial perfusion imaging study reported to have reversible perfusion defect in the apical to mid anterior wall, apical septal wall and part of apex suggestive of ischemia. Overall, atypical sounding chest pain but with abnormal noninvasive findings as above. Not entirely clear if these findings are true ischemic abnormalities vs artifactual. Recommended diagnostic catheterization for further evaluation and we discussed about this today. She is willing to proceed. We will arrange this as the next step. She will call us with any ongoing concerns or seek emergency help as required. Follow-up after catheterization. Discussed using accessibility lift technician. Orders: Orders Cardiac Cath LT Diagnostic Today R07.2 - Precordial pain Coding Level of Care Code New Pt Level 4 (36746) Complex EM visit Add On G2211 Diagnoses Precordial chest pain R07.2 CPT Codes EKG - CPT: 68014-Jxwfljukyvndkaqit, Complete ([id number])
[2024-05-24 13:01] VITALS: BP 120/66; PULSE 65; BMI 37.4
--- OUTSIDE RECORDS SUMMARY | 2024-05-24 15:01 | XMS_ITS | Encounter Summary ---
Author Organization [facility] Address [address] [facility] 7t [place] [address] Care Team Providers Care Service Order Expediter Name Role Phone Isa Lujan DO Primary Care Provider Encounter Details Date Type Department Care Team (Late st Contact Info) Description 01/30/2022 Orders Only [facility] CHC MED & PEDS [address] [place] [address] Isa Jacobson LPN Social History Tobacco Use [...] Care Team (Late st Contact Info) Description 06/13/2024 9:15 AM EDT Office Visit [address] [address] Isa Lujan DO [address] [place] [address] 07/05/2024 10:45 AM EDT Procedure Visit [address] [address] Isa Lujan DO [address] [place] [address] documented as of this encounter Visit Diagnoses Not on filedocumented in this encounter Care Teams Service Order Expediter Relationship Specialty Start Date End Date Isa Lujan DO [address] [place] [address] PCP - General Family Medicine 04/22/20 documented as of this encounter
--- OUTSIDE RECORDS SUMMARY | 2024-05-24 15:01 | XMS_ITS | Encounter Summary ---
Author Organization [employer] Address [address] [facility] 7t [place] [address] Care Team Providers Care Information Management Officer Name Role Phone Isa Lujan DO Primary Care Provider Encounter Details Date Type Department Care Team (Late Contact Info) Description 05/22/2022 Orders Only [facility] CHC MED & PEDS [address] [place] [address] Isa Jacobson LPN Social History Tobacco Use [...] Encounters Date Type Department Care Team (Late Contact Info) Description 06/13/2024 9:15 AM EDT Office Visit [facility] MEDICINE [address] [place] [address] Isa Lujan DO [address] [place] [address] 07/05/2024 10:45 AM EDT Procedure Visit [address] [address] Isa Lujan DO [address] [place] [address] documented as of this encounter Visit Diagnoses Not on filedocumented in this encounter Additional Health Concerns Assessment Noted Time PHQ-9 Depression Total Score: 14 02/04/ 022 11:11 AM EST documented as of this encounter Care Teams Information Management Officer Relationship Specialty Start Date End Date Isa Lujan DO [address] [facility] [place] [address] PCP - General Family Medicine 04/22/20 documented as of this encounter
--- OUTSIDE RECORDS SUMMARY | 2024-05-24 15:02 | XMS_ITS | Encounter Summary ---
Author Organization [employer] Address [address] [facility] 7t [place] [address] Care Team Providers Care Material Handler 1St Shift Name Role Phone Isa Lujan DO Primary Care Provider Reason for Visit * Reason Onset Date Comments Hospital Follow-up 05/18/2024 Encounter Details Date Type Department Care Team ([facility] Contact Info) Description 05/18/2024 Telephone [facility] [address] [place] [address] Isa Lujan DO [address] [place] [address] Hospital Follow-up Social History Tobacco Use Types Packs/Day Years [...] encounter Miscellaneous Notes * Telephone Encounter - Orestes Engle - 05/18/2024 11:23 AM EDT Tc from pt requesting a HDF appt. Hospital: [facility] Date of admission: 05/14/2024 Discharge date: 05/17/2024 Diagnosed: stone in the bladder *Send message to Al Clinical Care Coordinators documented in this encounter Plan of Treatment Upcoming Encounters Date Type Department Care Team (Late st Contact Info) Description 06/13/2024 9:15 AM EDT Office Visit [facility] [address] [place] [address] Isa Lujan, [address] [place] [address] 07/05/2024 10:45 AM EDT Procedure Visit [facility] [address] [place] [address] Isa Lujan, [address] [place] [address] documented as of this encounter Visit Diagnoses Not on filedocumented in this encounter Additional Health Concerns Assessment Noted Time PHQ-9 Depression Total Score: 11 024 11:02 AM EDT documented as of this encounter Care Teams Material Handler 1St Shift Relationship Specialty Start Date End Date Isa Lujan DO [address] [place] [address] PCP - General Family Medicine 04/22/20 documented as of this encounter
--- OUTSIDE RECORDS SUMMARY | 2024-05-24 15:02 | XMS_ITS | Encounter Summary ---
Author Organization [employer] Address 75 [facility] 7t [place] [address] Care Team Providers Care Retail Sales Merchandiser Name Role Phone Isa Lujan DO Primary Care Provider Encounter Details Date Type Department Care Team (Late Contact Info) Description 04/22/2022 Orders Only [facility] & PEDS [address] [place] [address] Isa Jacobson LPN Social History Tobacco Use [...] Description 06/13/2024 9:15 AM EDT Office Visit [facility] MEDICINE [address] [place] [address] Isa Lujan DO [address] [place] [address] 07/05/2024 10:45 AM EDT Procedure Visit [address] [address] Isa Lujan DO [address] [place] [address] documented as of this encounter Visit Diagnoses Not on filedocumented in this encounter Additional Health Concerns Assessment Noted Time PHQ-9 Depression Total Score: 14 02/04/ 022 11:11 AM EST documented as of this encounter Care Teams Retail Sales Merchandiser Relationship Specialty Start Date End Date Isa Lujan DO [address] [facility] [place] [address] PCP - General Family Medicine 04/22/20 documented as of this encounter
--- OUTSIDE RECORDS SUMMARY | 2024-05-24 15:02 | XMS_ITS | Clinical Summary ---
Author Organization [employer] Address [address] [place] [address] 7t [place] [address] Care Team Providers Care Product Responsibility Liaison Name Role Phone TaiIsa Primary Care Provider [phone] Allergies No known active allergies Medications senna [...] and at bedtime (pain). 150 g 3 07/23/2 024 Active sodium chloride ([place] Nasal [place]) 0.65 % nasal spray Administer 1 spray [...] MORNING AND AT BEDTIME 180 tablet 3 Active amitriptyline (Elavil) 25 MG tablet TAKE 2 TABLETS BY MOUTH EVERY DAY AT BEDTIME 180 tablet 3 Active Fiber-Lax 625 MG tablet TAKE [...] Encounters Date Type Department Care Team Description 05/23/2024 Telephone [facility] [address] [place] [address] Isa Lujan DO Results 05/18/2024 Patient Outreach [facility] PEDS [address] [place] [address] Isa Luajn DO Transition Of Care (Tcm) (HDF unscheduled. ) 05/18/2024 Telephone [facility] [address] [place] [address] Isa Lujan DO Hospital Follow-up 05/02/2024 Telephone [facility] [address] [place] [address] Isa Lujan DO Prior Authorization (Zepbound denial) 05/02/2024 Refill [facility] [address] [place] [address] Isa Lujan DO 04/28/2024 Population Health Risk Score Community [facility] (C3) Department [address] [phone] Provider, Population Health Generic 04/17/2024 Telephone [facility] [address] [place] [address] [place] 04/14/2024 11:15 AM EST Office Visit [facility] [address] [place] [address] Isa Lujan DO Major depression, recurrent, chronic (CMS/HCC) (Primary Dx); Prediabetes; Mild persistent asthma without complication; Chronic allergic rhinitis; Chronic gastroesophageal reflux disease; Chronic constipation; Chronic tension-type headache, not intractable; Leukocytosis, unspecified type; Chest pain, unspecified type; Pelvic pain; Healthcare maintenance; BMI 39.0-39.9,adult 04/14/2024 Orders Only [facility] [address] [place] [address] Isa Lujan DO 04/14/2024 Travel 04/11/2024 Travel 04/04/2024 Refill [facility] [address] [place] [address] Isa Lujan DO Vitamin D deficiency 03/03/[address] [address] Miladis Pina [place] Recall Appt. 03/03/2024 Travel 02/24/2024 9:30 AM EST Office Visit [facility] OPTOMETRY [address] [place] [address] Presbyopia (Primary Dx) from Last 3 Months [...] Description 06/13/2024 9:15 AM EDT Office Visit [facility] [address] [facility] [place] [address] Isa Lujan, [address] [facility] [place] [address] 07/05/2024 10:45 AM EDT Procedure Visit [facility] [address] [facility] [place] [address] Isa Lujan, [address] [place] [address] Health Maintenance Due Date Last Done Comments [...] Tobacco Screening 04/14/2025 04/14/2024 Mammogram 05/26/2025 05/27/2023 Lipid Panel 04/29/2028 04/30/2023, 02/18/2022 DTaP/Tdap/Td Vaccines (2 - T d or [...] Procedure Name Priority Date/Time Associated Diagnosis Comments US PELVIS TRANSVAGINAL Routine 05/17/2024 7:45 PM EDT Pelvic pain US ABDOMEN COMPLETE Routine 05/17/2024 7 :11 PM EDT Chronic gastroesophageal reflux disease HELICOBACTER PYLORI, UREA BREATH TEST Routine 04/14/2024 12:44 PM EST BI MAMMOGRAM SCREENING TOMOSYNTHESIS BILATERAL Routine 05/27/2023 4:08 PM EDT HEPATITIS C AB W/REFL TO HCV RNA, QN, PCR Routine 04/30/2023 11:39 AM EDT Prediabetes HIV 1/2 ANTIGEN/ANTIBODY, FOURTH GENERATION W/RFL Routine 04/30/2023 11:39 AM EDT Prediabetes HEMOGLOBIN A1C Routine 04/30/2023 11:39 AM EDT Prediabetes LIPID PANEL, STANDARD Routine 04/30/2023 11:39 AM EDT Prediabetes from Last 3 Months or Most Recently Relevant to Health Maintenance Results * US Pelvis Transvaginal (05/17/2024 7:45 PM EDT) Anatomical Region Laterality Modality Pelvis Ultrasound 05/17/2024 7:45 PM EDT Narrative 05/17/2024 7:46 PM EDT ? [facility] ?[address] ?[place] [address] ? Ultrasound Report ? Signed ? Patient: Radha Tinajero ?MR#: [id number] ?? [id number] ? : 1970 ?Acct:[id number] ? Age/Sex: 53 / F ?ADM Date: 05/17/24 ? Loc: HO.US ? Attending Dr: Isa Lujan DO ? Ordering Physician: Isa Lujan DO ?? Date of Service: 05/17/24 ?? Procedure(s): US pelvic and transvaginal ?? Accession Number(s): [id number] ? cc: Isa Lujan DO ? CLINICAL HISTORY: intermittent pelvic pain cramping ? Transabdominal and transvaginal pelvic ultrasound ? Comparison: None ? Findings: ? Uterus 8.5 x 4.6 x 4.9 cm. Endometrium 4 mm. ?? No significant free fluid. ? Right ovary 2.3 x 1.7 x 1.9 cm. ?? Left ovary 2.3 x 1.4 x 2.0 cm. ?? No significant focal abnormality. ? Impression: ? No significant abnormality ? This document has been electronically signed by: Marcelino Salas MD on ?? 05/17/2024 19:45:32 ? Dictated By: ?Marcelino Salas MD ? Signed By: ?<Electronically signed by Marcelino Salas MD in OV> ? 05/17/241945 ? DD/ 44 ? TD/TT: 05/17/241944 ? Dispatch Specialist: ? Procedure Note Gregoria Barr - 05/17/[address] [address] Ultrasound Report Signed Patient: LiorCindywooMR#: [id number] : 1970Acct:[id number] Age/Sex: 53 / FADM Date: 05/17/24 Loc: HO.US Attending Dr: Isa Lujan DO Ordering Physician: Isa Lujan DO Date of Service: 05/17/24 Procedure(s): US pelvic and transvaginal Accession Number(s): [id number] cc: Isa Lujan DO CLINICAL HISTORY: intermittent pelvic pain cramping Transabdominal and transvaginal pelvic ultrasound Comparison: None Findings: Uterus 8.5 x 4.6 x 4.9 cm. Endometrium 4 mm. No significant free fluid. Right ovary 2.3 x 1.7 x 1.9 cm. Left ovary 2.3 x 1.4 x 2.0 cm. No significant focal abnormality. Impression: No significant abnormality This document has been electronically signed by: Marcelino Salas MD on 05/17/2024 19:45:32 Dictated By: Marcelino Salas MD Signed By: <Electronically signed by Marcelino Salas MD in OV> 05/17/241945 DD/ 44 TD/TT: 05/17/241944 Dispatch Specialist: us Isa Lujan DO IMG US PROCEDURES Final Resu lt * US Abdomen Complete (05/17/2024 7:11 PM EDT) Anatomical Region Laterality Modality Abdomen Ultrasound 05/17/2024 7:11 PM EDT Narrative 05/17/2024 7:13 PM EDT ? [facility] ?[address] ?[place] [address] ? Ultrasound Report ? Signed ? Patient: Lior,Radha ?MR#: [id number] ?? [id number] ? : 1970 ?Acct:[id number] ? Age/Sex: 53 / F ?ADM Date: 04/02/25 ? Loc: HO.US ? Attending Dr: Isa Lujan DO ? Ordering Physician: Isa Lujan DO ?? Date of Service: 05/17/24 ?? Procedure(s): US abdomen complete ?? Accession Number(s): [id number] ? cc: Isa Lujan DO ? CLINICAL HISTORY: increasing epigastric pain ? Ultrasound of the abdomen ? Comparison: CT/SR - CT ABDOMEN PELVIS WO IV CON - 01/19/22 18:01 EST ? Findings: ?? The liver is normal in size, measuring 13.1cm. Increased echogenicity ?? without focal lesions. Hepatopetal flow is visualized within the portal ?? vein. No intrahepatic biliary ductal dilatation. ?? Gallbladder is filled with stones. No gallbladder wall thickening or ?? pericholecystic fluid. Negative Acevedo's sign. ?? The common bile duct is normal, measuring 0.3cm. ?? Unremarkable limited evaluation of the pancreas. ?? The right kidney is normal in echogenicity and size, measuring 10.0cm. No ?? nephrolithiasis or hydronephrosis. Lobular contour of the kidney, also ?? present on the prior study. ?? The left kidney is normal echogenicity and size, measuring 10.9cm. No ?? nephrolithiasis or hydronephrosis. ?? The spleen is without focal lesions and normal in size, measuring 11.6cm. ?? The aorta and IVC are unremarkable. ?? No ascites. ? Impression: ?? Cholelithiasis without acute cholecystitis. ?? Hepatic steatosis. ? This document has been electronically signed by: Rena Drake MD ?? on 05/17/2024 19:11:24 ? Dictated By: ?Rena Simon MD ? Signed By: ?<Electronically signed by Rena Simon MD in OV> ? 05/17/241911 ? DD/ 10 ? TD/TT: 05/17/241910 ? Dispatch Specialist: ? Procedure Note Gregoria Barr - 05/17/[address] [address] Ultrasound Report Signed Patient: Radha TinajeroMR#: [id number] : 1970Acct:[id number] Age/Sex: 53 / FADM Date: 05/17/24 Loc: HO.US Attending Dr: Isa Lujan DO Ordering Physician: Isa Lujan DO Date of Service: 05/17/24 Procedure(s): US abdomen complete Accession Number(s): [id number] cc: Isa Lujan DO CLINICAL HISTORY: increasing epigastric pain Ultrasound of the abdomen Comparison: CT/SR - CT ABDOMEN PELVIS WO IV CON - 01/19/22 18:01 EST Findings: The liver is normal in size, measuring 13.1cm. Increased echogenicity without focal lesions. Hepatopetal flow is visualized within the portal vein. No intrahepatic biliary ductal dilatation. Gallbladder is filled with stones. No gallbladder wall thickening or pericholecystic fluid. Negative Acevedo's sign. The common bile duct is normal, measuring 0.3cm. Unremarkable limited evaluation of the pancreas. The right kidney is normal in echogenicity and size, measuring 10.0cm. No nephrolithiasis or hydronephrosis. Lobular contour of the kidney, also present on the prior study. The left kidney is normal echogenicity and size, measuring 10.9cm. No nephrolithiasis or hydronephrosis. The spleen is without focal lesions and normal in size, measuring 11.6cm. The aorta and IVC are unremarkable. No ascites. Impression: Cholelithiasis without acute cholecystitis. Hepatic steatosis. This document has been electronically signed by: Rena Drake MD on 05/17/2024 19:11:24 Dictated By: Rena Simon MD Signed By: <Electronically signed by Rena Simon MD in OV> 05/17/241911 DD/ 10 TD/TT: 05/17/241910 Dispatch Specialist: Isa Lujan DO IMG US PROCEDURES Final Resu lt * Helicobacter pylori, Urea Breath Test (04/14/2024 12:44 PM EST) H. pylori Breath Test Negative Negative [facility] Comment:Antimicrobials, prot on pump inhibitors and bismuthpreparations are known to suppress H. pylori. Ingestingthese medications within two weeks prior to performing thebreath test may produce negative test results. A positiveresult is still clinically valid. 04/14/2024 12:4 4 PM EST 04/14/2024 5:55 PM EST Isa Lujan DO LAB BLOOD ORDERABLES Final R esult [facility] [address] [place] [phone] * BI Mammogram Screening Tomosynthesis Bilateral (05/27/2023 4:08 PM EDT) Anatomical Region Laterality Modality Breast Bilateral Mammography 05/27/2023 4:08 PM EDT Narrative 06/22/2023 11:17 AM EDT ? [facility] ? [address] ?[place] [address] ? Mammography Report ? Signed ? Patient: Radha Tinajero ?MR#: [id number] ?? [id number] ? : 1970 ?Acct:[id number] ? Age/Sex: 52 / F ?ADM Date: 05/27/23 ? Loc: HO.MAMMO ? Attending Dr: Isa Lujan DO ? Ordering Physician: Isa Lujan DO ?Results: 1N ?? egative ? Date of Service: 05/27/23 ?Follow Up: 1 Year From Orig ?? inal Mammogram ? Procedure(s): MM tomosynthesis screening BI ?? Accession Number(s): [id number] ? cc: Isa Lujan DO ? EXAMINATION: [...] 1113 ? DD/ 1608 ? TD/TT: ? Dispatch Specialist: ? Procedure Note Casajuan alberto, Image - 06/22/2023 [facility] [address] [place] [address] Mammography Report Signed Patient: Radha TinajeroMR#: [id number] : 1970Acct:[id number] Age/Sex: 52 / FADM Date: 05/27/23 Loc: PHILL.CIRILOO Attending Dr: Isa Lujan DO Ordering Physician: Isa Lujanults: 1N egative Date of Service: 05/27/23Follow Up: 1 Year From Orig inal Mammogram Procedure(s): MM tomosynthesis screening BI Accession Number(s): [id number] cc: Isa Lujan DO EXAMINATION: MM SCREENING [...] in OV> 06/22/23 1113 DD/ 1608 TD/TT: Dispatch Specialist: us Isa Lujan DO IMG BI PROCEDURES Final Resu lt * Hepatitis C Antibody with Reflex to HCV, RNA, Quantitative, Real-Time PCR (04/30/2023 11:39 AM EDT) Pathologist [facility] [place] Hepatitis C Antibody Nonreactive Nonreactive [facility] Comment:Antibodies to HCV no t detected; does not exclude early acuteHCV infection. Blood Venous blood specimen / Unknown 04/30/2023 11:39 AM EDT 04/30/2023 1:01 PM EDT Isa Lujan DO LAB BLOOD ORDERABLES Final R esult [facility] [address] [place] [phone] * HIV-1/2 Antigen and Antibodies, Fourth Generation, with Reflexes (04/30/2023 11:39 AM EDT) HIV AB/AG Nonreactive Nonreactive [facility] Comment:HIV-1 p24 Ag and/or HIV-1/HIV-2 Ab not detected.A test result that is nonreactive does not exclude thepossibility of exposure to or infection with HIV-1 and/orHIV-2. Nonreactive results in this assay for individualswith prior exposure to HIV-1 and/or HIV-2 may be due toantigen and antibody levels that are below the limit ofdetection of this assay.The [place] HIV Ag/Ab Combo assay result andsupplemental assay results should be interpreted inconjunction with the patient's clinical presentation,history and other laboratory results. If the results areinconsistent with clinical evidence, additional testing issuggested to confirm the result. Blood Venous blood specimen / Unknown 04/30/2023 11:39 AM EDT 04/30/2023 1:01 PM EDT Isa Lujan DO LAB BLOOD ORDERABLES Final R esult [facility] [address] [place] [phone] * Hemoglobin A1c (04/30/2023 11:39 AM EDT) Hemoglobin A1c 5.5 <6.0 % [facility] Comment:Hemoglobin A1C Refer ence Range Adults: 4.8 - 6.0 % Non diabetic: < 6.0 % Goal: < 7.0 %Additional Action Suggested: > 8.0 %Note: Hemoglobin A1c results are invalid for patients with abnormal amounts of HbF. Blood transfusions may impact the HbA1c concentration in the patient sample. Estimated Average Glucose 111 mg/dL [facility] Comment:eAG = Estimated ave rage glucose which is %A1C expressed asaverage glucose, using the formula of the D9O-ZgzyxlnZvyiuhf Glucose study (ADAG), Diabetes Care, Vol.31,#8,Sep. 2007 Blood Venous blood specimen / Unknown 04/30/2023 11:39 AM EDT 04/30/2023 1:01 PM EDT Isa Tai DO LAB BLOOD ORDERABLES Final R esult Performing Organization Address City/[facility]/ZIP Co de Phone Number [facility] [address] [place] [phone] [phone] * Lipid Panel, Standard (04/30/2023 11:39 AM EDT) Triglycerides 111 <150 mg/dL [facility] Comment:Desirable Triglyceri de: less than 150 mg/dLBorderline High Triglyceride 150-199 mg/dLHigh Triglyceride: 200-499 mg/dLVery High Triglyceride: greater than or equal to 5OO mg/dL Cholesterol 151 <200 mg/dL [facility] Comment:Desirable Cholestero l: less than 200 mg/dLBorderline High Cholesterol: 200-239 mg/dLHigh Cholesterol: greater than 239 mg/dL LDL Cholesterol Calculated 78 <100 mg/dL [facility] Comment:Desirable LDL: less than 100 mg/dLNear Optimal/Above Optimal LDL: 110- 129 mg/dLBorderline High LDL: 130-159 mg/dLHigh LDL: 160-189 mg/dLVery High LDL: greater than or equal to 190 mg/dL HDL Cholesterol 51 >40 mg/dL [facility] Comment:Desirable HDL: great er than 40 mg/dL Note: This HDL assay may give artificially low results in patients with liver disease. Blood Venous blood specimen / Unknown 04/30/2023 11:39 AM EDT 04/30/2023 1:01 PM EDT us Isa Lujan DO LAB BLOOD ORDERABLES Final R esult Performing Organization Address City/[facility]/ZIP Co de Phone Number [facility] [address] [place] [phone] [phone] from Last 3 Months or Most Recently Relevant to Health Maintenance Insurance [facility] C3 Care Teams Product Responsibility Liaison Relationship Specialty Start Date End Date Isa Lujan DO [address] [place] [phone] PCP - General Family Medicine 04/22/20
--- OUTSIDE RECORDS SUMMARY | 2024-05-24 15:02 | XMS_ITS | Encounter Summary ---
Author Organization [email or web address] Address 75 [facility] 7t [place] [address] Care Team Providers Care Solderer Barrel Ribs Name Role Phone Isa Lujan DO Primary Care Provider [phone] Reason for Visit * Reason Comments Med Refill Encounter Details Date Type Department Care Team ([facility] st Contact Info) Description 01/25/2023 Refill [facility] [address] [place] [address] Isa Lujan DO [address] [place] [address] Mild persistent asthma without complication Social History [...] Description 06/13/2024 9:15 AM EDT Office Visit [facility] [address] [place] [phone] Isa Lujan DO [address] [place] [address] 07/05/2024 10:45 AM EDT Procedure Visit [facility] [address] [place] [address] Ias Lujan DO [address] [place] [address] documented as of this encounter Visit Diagnoses Diagnosis Mild persistent asthma without complication documented in this encounter Additional Health Concerns Assessment Noted Time PHQ-9 Depression Total Score: 10 023 10:47 AM EDT documented as of this encounter Care Teams Solderer Barrel Ribs Relationship Specialty Start Date End Date Isa Lujan DO [address] [place] [address] PCP - General Family Medicine 04/22/20 documented as of this encounter
--- OUTSIDE RECORDS SUMMARY | 2024-05-24 15:02 | XMS_ITS | Encounter Summary ---
Author Organization [employer] Address 75 [facility] 7t [place] [address] Care Team Providers Care Business Relations Manager Name Role Phone Isa Lujan DO Primary Care Provider [phone] Reason for Visit * Reason Onset Date Comments Results 05/23/2024 Encounter Details Date Type Department Care Team ([facility] Contact Info) Description 05/23/2024 Telephone [facility] [address] [place], [place] [phone] Isa Lujan DO [address] [place] [address] Results Social History Tobacco Use Types Packs/Day Years [...] encounter Miscellaneous Notes * Telephone Encounter - Triny Parson RN - 05/23/2024 2:05 PM EDT RN reviewed abdominal US results with PCP. Abd US returned showing gallstones. PCP will refer patient to [facility] to discuss removal of gallbladder. TC placed to [phone] in regards to above message. Patient verbalized understanding. Patient did not have any further questions/concerns. Patient is aware she will receive a letter in the mail with appointment date and time or a call from the office. Patient to f/u PRN. documented in this encounter Plan of Treatment Upcoming Encounters Date Type Department Care Team (Late st Contact Info) Description 06/13/2024 9:15 AM EDT Office Visit [facility] [address] [place] [phone] Isa Lujan DO [address] [place] [address] 07/05/2024 10:45 AM EDT Procedure Visit [facility] [address] [place] [phone] Isa Lujan DO [address] [place] [address] documented as of this encounter Visit Diagnoses Not on filedocumented in this encounter Additional Health Concerns Assessment Noted Time PHQ-9 Depression Total Score: 11 024 11:02 AM EDT documented as of this encounter Care Teams Business Relations Manager Relationship Specialty Start Date End Date Isa Lujan DO [address] [place] [address] [place] [address] PCP - General Family Medicine 04/22/20 documented as of this encounter
== END 2024-05-24 13:37 | disposition home or self-care (01) ==
PROVIDERS: PCP Family Medicine; Visit Provider Internal Medicine
DX: R07.2 Precordial pain (principal)
CPT/HCPCS: 93010; 99204

== ENCOUNTER → 2024-05-24 12:57 | Outpatient (BNVA) | payer MEDICAID, SELFPAY | PROVIDERS: PCP Family Medicine; Visit Provider Internal Medicine | DX: R07.2 Precordial pain (principal); R94.31 Abnormal electrocardiogram [ECG] [EKG] | CPT/HCPCS: 93005; 99202 ==

== ENCOUNTER 2024-06-01 15:09 | Outpatient (REF) | payer MEDICAID, SELFPAY ==
--- OUTSIDE RECORDS SUMMARY | 2024-06-01 17:54 | XMS_ITS | Clinical Summary ---
Author Organization [employer] Address [address] [facility] 7t [place] [address] Care Team Providers Care Slot Floorman Name Role Phone TaiIsa Primary Care Provider [phone] Allergies No known active allergies Medications senna (Senokot) 8.6 MG tabletIndications: Constipation, unspecified constipation type TAKE 1 TABLET BY MOUTH EVERY DAY NEEDED FOR CONSTIPATION 90 tablet 04/02/19 23 Active buPROPion XL (Wellbutrin XL) 150 MG 24 hr tablet Take 150 mg by mouth in the morning. 04/30/19 23 Active busPIRone (Buspar) 15 MG tablet TAKE 1 TABLET BY MOUTH TWICE DAILY IN THE MORNING AND IN THE EVENING 04/30/19 23 Active FLUoxetine (PROzac) 20 MG capsule TAKE 2 CAPSULES BY MOUTH ONCE DAILY IN THE MORNING 04/30/19 23 Active hydrOXYzine pamoate (Vistaril) 50 MG capsule TAKE 1-2 CAPSULES BY MOUTH TWICE DAILY NEEDED FOR ANXIETY 04/30/19 23 Active zolpidem (Ambien) 10 MG tablet Take 10 mg by mouth if needed at bedtime. 04/30/19 23 Active ibuprofen 600 MG tabletIndications: New onset of headaches TAKE 1 TABLET BY MOUTH EVERY 6 HOURS NEEDED FOR PAIN OR FOR HEADACHE 40 tablet 2 08/11/19 23 Active omeprazole (PriLOSEC) [address] capsuleIndications :Chronic GERD take 1 capsule (20MG) by oral route every day before a meal 90 capsule 3 09/07/19 24 Active Diclofenac Sodium 1 % gel Apply 2 g topically if needed in the morning, at noon, in the evening, and at bedtime (pain). 150 g 3 09/07/19 24 Active sodium chloride ([place] Nasal [place]) 0.65 % nasal spray Administer 1 spray into each nostril if needed for congestion. 30 mL 10/06/19 24 025 Active acetaminophen (Tylenol 8 Hour) 650 MG ER tablet Take 1 tablet (650 mg) by mouth every 8 (eight) hours if needed for mild pain or headaches (fever). Do not crush, chew, or split. 90 tablet 1 10/06/19 24 025 Active albuterol (2.5 MG/3ML) 0.083% nebulizer solutionIndication s:Mild persistent asthma without complication Take 3 mL (2.5 mg) by nebulization every 4 (four) hours if needed for wheezing or shortness of breath. 75 mL 2 10/06/19 24 025 Active fluticasone (Flonase) 50 MCG/ACT nasal spray Administer 2 sprays into each nostril Once per day. Shake gently. Before first use, prime pump. After use, clean tip and replace cap. 18 g 10/06/19 24 Active ondansetron ODT (Zofran-ODT) 4 MG disintegrating tablet DISSOLVE 1 TABLET ON TONGUE EVERY 6 HOURS 11/17/19 24 Active Antacid/Antigas 400-400-40 MG/10ML oral suspension TAKE 10MLS EVERY 6 HOURS NEEDED FOR INDIGESTION 11/17/19 24 Active loratadine (Claritin) 10 MG tablet TAKE 1 TABLET BY MOUTH EVERY DAY 90 tablet 1 02/08/20 24 Active D3 Super Strength 50 MCG (2000 UT) capsuleIndications :Vitamin D deficiency TAKE 1 CAPSULE BY MOUTH EVERY MORNING 90 capsule 3 04/04/19 25 Active famotidine (Pepcid) 20 MG tablet Take 2 tablets (40 mg) by mouth at bedtime. 60 tablet 3 04/14/19 25 Active Mometasone Furoate (Asmanex HFA) 100 MCG/ACT aerosol Inhale 1 Act (100 mcg) 2 times daily. 60 Act 11 04/14/19 25 026 Active Tirzepatide-Weight Management (Zepbound) 2.5 MG/0.5ML solution auto-injector Inject 0.5 mL (2.5 mg) under the skin 1 (one) time per week. 2 mL 3 04/14/19 25 Active docusate sodium (Colace) 100 MG capsule TAKE 1 CAPSULE BY MOUTH TWICE DAILY IN THE MORNING AND AT BEDTIME 180 capsule 3 05/03/19 25 Active Fiber-Lax 625 MG tablet TAKE 1 TABLET BY MOUTH TWICE DAILY IN THE MORNING AND AT BEDTIME 180 tablet 3 05/03/19 25 Active amitriptyline (Elavil) 25 MG tablet TAKE 2 TABLETS BY MOUTH EVERY DAY AT BEDTIME 180 tablet 3 05/03/19 Active Aspirin Low Dose 81 MG EC tablet Take 1 tablet by mouth Once per day. 05/10/19 25 Active atorvastatin (Lipitor) 40 MG tablet Take 1 tablet by mouth Once per day. 05/10/19 Active metoprolol succinate XL (Toprol-XL) 25 MG 24 hr tablet Take 1 tablet by mouth Once per day. 05/10/19 Active nitroglycerin (Nitrostat) 0.[address] 1 TABLET UNDER TONGUE EVERY 5 MIN NEEDED FOR CHEST PAIN, MAX OF 3 DOSES/15 MIN CALL 911/SEEK MEDICAL ATTENTION IF PAIN PERSISTS 05/10/19 25 Active butalbital-acetami nophen-caffeine 50-325-40 MG tablet Take 1 tablet by mouth every 6 (six) hours if needed for headaches. 20 tablet 04/14/19 25 025 Active Problems Problem Noted Date Diagnosed Date [...] Type Department Care Team Description 05/23/2024 Telephone [facility] [address] [place] [address] Isa Lujan DO Results 05/18/2024 Patient Outreach [facility] [address] [place] [address] Isa Lujan DO Transition Of Care (Tcm) (HDF unscheduled. ) 05/18/2024 Telephone [facility] [address] [place] [address] Isa Lujan DO Hospital Follow-up 05/02/2024 Telephone [facility] [address] [place] [address] Isa Lujan DO Prior Authorization (Zepbound denial) 05/02/2024 Refill [facility] [address] [place] [address] Isa Lujan DO 04/28/2024 Population Health Risk Score Community [facility] () Department [address] [phone] Provider, Population Health Generic 04/17/2024 Telephone [facility] [address] [place] [address] Kayla Bucio LPN 04/14/2024 11:15 AM EST Office Visit [facility] [address] [place] [address] Isa Lujan DO Major depression, recurrent, chronic (CMS/HCC) (Primary Dx); Prediabetes; Mild persistent asthma without complication; Chronic allergic rhinitis; Chronic gastroesophageal reflux disease; Chronic constipation; Chronic tension-type headache, not intractable; Leukocytosis, unspecified type; Chest pain, unspecified type; Pelvic pain; Healthcare maintenance; BMI 39.0-39.9,adult 04/14/2024 Orders Only [facility] [address] [place] [address] Isa Lujan DO 04/14/2024 Travel 04/11/2024 Travel 04/04/[address] [address] Isa Lujan DO Vitamin D deficiency 03/03/2024 Telephone [facility] [address] [place] [address] Miladis Pina [place] Recall Appt. 03/03/2024 Travel from Last 3 Months Immunizations Name Administration [...] Description 06/13/2024 9:15 AM EDT Office Visit [facility] [address] [place] [address] Isa Lujan, DO [address] [place] [phone] 07/05/2024 10:45 AM EDT Procedure Visit [facility] [address] [place] [phone] Isa Lujan, [address] [place] [phone] Health Maintenance Due Date Last Done Comments [...] 05/03/2020 Influenza Vaccine (#1) 2023 Depression Monitoring 03/09/2024 09/07/2023 , 09/07/2023 Diabetes: Hemoglobin A1C 04/29/2024 024, 06/17/2022, [...] EDT Narrative 05/17/2024 7:46 PM EDT ? [facility] ?[address] ?[place] [address] ? Ultrasound Report ? Signed ? Patient: Radha Tinajero ?MR#: [id number] ?? [id number] ? : 1970 ?Acct:[id number] ? Age/Sex: 53 / F ?ADM Date: 05/17/24 ? Loc: HO.US ? Attending Dr: Isa Lujan DO ? Ordering Physician: Isa Lujan DO ?? Date of Service: 05/17/24 ?? Procedure(s): US pelvic and transvaginal ?? Accession Number(s): [id number] ? cc: Isa Lujan DO ? CLINICAL [...] ? DD/ 44 ? TD/TT: 05/17/241944 ? Discovery Manager: ? Procedure Note Gregoria Barr - 05/17/[address] [address] Ultrasound Report Signed Patient: Radha TinajeroMR#: [id number] : 1970Acct:[id number] Age/Sex: 53 / FADM Date: 05/17/24 Loc: HO.US Attending Dr: Isa Lujan DO Ordering Physician: Isa Lujan DO Date of Service: 05/17/24 Procedure(s): US pelvic and transvaginal Accession Number(s): [id number] cc: Isa Lujan DO CLINICAL HISTORY: intermittent [...] in OV> 05/17/241945 DD/ 44 TD/TT: 05/17/241944 Discovery Manager: us Isa Lujan DO IMG US PROCEDURES Final Resu lt * US Abdomen Complete (05/17/2024 7:11 PM EDT) Anatomical Region Laterality Modality Abdomen Ultrasound 05/17/2024 7:11 PM EDT Narrative 05/17/2024 7:13 PM EDT ? [facility] ?[address] ?[place] [address] ? Ultrasound Report ? Signed ? Patient: Radha Tinajero ?MR#: [id number] ?? [id number] ? : 1970 ?Acct:[id number] ? Age/Sex: 53 / F ?ADM Date: 04/02/25 ? Loc: HO.US ? Attending Dr: Isa Lujan DO ? Ordering Physician: Isa Lujan DO ?? Date of Service: 05/17/24 ?? Procedure(s): US abdomen complete ?? Accession Number(s): [id number] ? cc: Isa Lujan DO ? CLINICAL [...] ? DD/ 10 ? TD/TT: 05/17/241910 ? Discovery Manager: ? Procedure Note Momo, Image - 05/17/2024 [place] [address] Ultrasound Report Signed Patient: Radha TinajeroMR#: [id number] : 1970Acct:[id number] Age/Sex: 53 / FADM Date: 05/17/24 Loc: HO.US Attending Dr: Isa Lujan DO Ordering Physician: Isa Lujan DO Date of Service: 05/17/24 Procedure(s): US abdomen complete Accession Number(s): [id number] cc: Isa Lujan DO CLINICAL HISTORY: increasing [...] in OV> 05/17/241911 DD/ 10 TD/TT: 05/17/241910 Discovery Manager: Isa Lujan DO IMG US PROCEDURES Final Resu lt * Helicobacter pylori, Urea Breath Test (04/14/2024 12:44 PM EST) H. pylori Breath Test Negative Negative [facility] Comment:Antimicrobials, prot on pump inhibitors and bismuthpreparations are known to suppress H. pylori. Ingestingthese medications within two weeks prior to performing thebreath test may produce negative test results. A positiveresult is still clinically valid. 04/14/2024 12:4 4 PM EST 04/14/2024 5:55 PM EST us Isa Lujan DO LAB BLOOD ORDERABLES Final R esult [facility] [address] [place] [phone] * BI Mammogram Screening Tomosynthesis Bilateral (05/27/2023 4:08 PM EDT) Anatomical Region Laterality Modality Breast Bilateral Mammography 05/27/2023 4:08 PM EDT Narrative 06/22/2023 11:17 AM EDT ? [facility] ? [address] ?[place] [address] ? Mammography Report ? Signed ? Patient: Radha Tinajero ?MR#: [id number] ?? [id number] ? : 1970 ?Acct:[id number] ? Age/Sex: 52 / F ?ADM Date: 05/27/23 ? Loc: HO.MAMMO ? Attending Dr: Isa Lujan DO ? Ordering Physician: Isa Lujan DO ?Results: 1N ?? egative ? Date of Service: 05/27/23 ?Follow Up: 1 Year From Orig ?? inal Mammogram ? Procedure(s): MM tomosynthesis screening BI ?? Accession Number(s): [id number] ? cc: Isa Lujan DO ? EXAMINATION: [...] 1113 ? DD/ 1608 ? TD/TT: ? Discovery Manager: ? Procedure Note Gregoria Barr - 06/22/2023 [facility] [address] [place] [address] Mammography Report Signed Patient: Radha TinajeroMR#: [id number] : 1970Acct:[id number] Age/Sex: 52 / FADM Date: 05/27/23 Loc: HO.MAMMO Attending Dr: Isa Lujan DO Ordering Physician: Isa Lujanults: 1N egative Date of Service: 05/27/23Follow Up: 1 Year From Orig inal Mammogram Procedure(s): MM tomosynthesis screening BI Accession Number(s): [id number] cc: Isa Lujan DO EXAMINATION: MM SCREENING DIGITAL BREAST TOMOSYNTHESIS, BILATERAL CLINICAL INFORMATION: Screening. Asymptomatic. COMPARISON: Mammography: This study is compared with prior exams dating back to 2014. TECHNIQUE: Digital breast tomosynthesis is performed in [...] in OV> 06/22/23 1113 DD/ 1608 TD/TT: Discovery Manager: Isa Lujan DO IMG BI PROCEDURES Final Resu lt * Hepatitis C Antibody with Reflex to HCV, RNA, Quantitative, Real-Time PCR (04/30/2023 11:39 AM EDT) Hepatitis C Antibody Nonreactive Nonreactive [facility] Comment:Antibodies to HCV no t detected; does not exclude early acuteHCV infection. Blood Venous blood specimen / Unknown 04/30/2023 11:39 AM EDT 04/30/2023 1:01 PM EDT us Isa Lujan DO LAB BLOOD ORDERABLES Final R esult [facility] [address] [place] [phone] * HIV-1/2 Antigen and Antibodies, Fourth Generation, with Reflexes (04/30/2023 11:39 AM EDT) HIV AB/AG Nonreactive Nonreactive [facility] Comment:HIV-1 p24 Ag and/or HIV-1/HIV-2 Ab not detected.A test result that is nonreactive does not exclude thepossibility of exposure to or infection with HIV-1 and/orHIV-2. Nonreactive results in this assay for individualswith prior exposure to HIV-1 and/or HIV-2 may be due toantigen and antibody levels that are below the limit ofdetection of this assay.The ValmarcniAldis HIV Ag/Ab Combo assay result andsupplemental assay results should be interpreted inconjunction with the patient's clinical presentation,history and other laboratory results. If the results areinconsistent with clinical evidence, additional testing issuggested to confirm the result. Blood Venous blood specimen / Unknown 04/30/2023 11:39 AM EDT 04/30/2023 1:01 PM EDT Isa Lujan DO LAB BLOOD ORDERABLES Final R esult Performing Organization Address City/[facility]/ZIP Co de Phone Number [facility] [address] [place] [phone] * Hemoglobin A1c (04/30/2023 11:39 AM EDT) Hemoglobin A1c 5.5 <6.0 % [facility] Comment:Hemoglobin A1C Refer ence Range Adults: 4.8 - 6.0 % Non diabetic: < 6.0 % Goal: < 7.0 %Additional Action Suggested: > 8.0 %Note: Hemoglobin A1c results are invalid for patients with abnormal amounts of HbF. Blood transfusions may impact the HbA1c concentration in the patient sample. Estimated Average Glucose 111 mg/dL [facility] Comment:eAG = Estimated ave rage glucose which is %A1C expressed asaverage glucose, using the formula of the L9H-PbhirumEpooigm Glucose study (ADAG), Diabetes Care, Vol.31,#8,Sep. 2007 Blood Venous blood specimen / Unknown 04/30/2023 11:39 AM EDT 04/30/2023 1:01 PM EDT Isa Lujan DO LAB BLOOD ORDERABLES Final R esult [facility] [address] [place] [phone] * Lipid Panel, Standard (04/30/2023 11:39 AM EDT) Triglycerides 111 <150 mg/dL [facility] Comment:Desirable Triglyceri de: less than 150 mg/dLBorderline High Triglyceride 150-199 mg/dLHigh Triglyceride: 200-499 mg/dLVery High Triglyceride: greater than or equal to 5OO mg/dL Cholesterol 151 <200 mg/dL [facility] Comment:Desirable Cholestero l: less than 200 mg/dLBorderline High Cholesterol: 200-239 mg/dLHigh Cholesterol: greater than 239 mg/dL LDL Cholesterol Calculated 78 <100 mg/dL [facility] Comment:Desirable LDL: less than 100 mg/dLNear Optimal/Above Optimal LDL: 110- 129 mg/dLBorderline High LDL: 130-159 mg/dLHigh LDL: 160-189 mg/dLVery High LDL: greater than or equal to 190 mg/dL HDL Cholesterol 51 >40 mg/dL [facility] Comment:Desirable HDL: great er than 40 mg/dL Note: This HDL assay may give artificially low results in patients with liver disease. Blood Venous blood specimen / Unknown 04/30/2023 11:39 AM EDT 04/30/2023 1:01 PM EDT us Isa Lujan DO LAB BLOOD ORDERABLES Final R esult Performing Organization Address City/[facility] Co de Phone Number [facility] [address] [place] [phone] from Last 3 Months or Most Recently Relevant to Health Maintenance [facility] Care Teams Slot Floorman Relationship Specialty Start Date End Date Isa Lujan DO [address] [place] [phone] PCP - General Family Medicine 04/22/20
--- OUTSIDE RECORDS SUMMARY | 2024-06-01 17:54 | XMS_ITS | Encounter Summary ---
Author Organization [employer] Address [address] [facility] 7t [place] [address] Care Team Providers Care Swimming Pool Cleaner Name Role Phone Isa Lujan DO Primary Care Provider Encounter Details Date Type Department Care Team (Late Contact Info) Description 04/22/2022 Orders Only [facility] PEDS [address] [place] [address] Isa Jacobson LPN Social History Tobacco Use [...] 9:15 AM EDT Office Visit [facility] [address] [place] [address] Isa Lujan DO [address] [place] [address] 07/05/2024 10:45 AM EDT Procedure Visit [address] [address] Isa Lujan DO [address] [place] [address] documented as of this encounter Visit Diagnoses Not on filedocumented in this encounter Additional Health Concerns Assessment Noted Time PHQ-9 Depression Total Score: 14 02/04/ 022 11:11 AM EST documented as of this encounter Care Teams Swimming Pool Cleaner Relationship Specialty Start Date End Date Isa Lujan DO [address] [facility] [place] [address] PCP - General Family Medicine 04/22/20 documented as of this encounter
--- OUTSIDE RECORDS SUMMARY | 2024-06-01 17:54 | XMS_ITS | Encounter Summary ---
Author Organization [employer] Address [address] [facility] 7t [place] [address] Care Team Providers Care Welder Apprentice Name Role Phone Isa Lujan DO Primary Care Provider [phone] Reason for Visit * Reason Onset Date Comments Hospital Follow-up 05/18/2024 Encounter Details Date Type Department Care Team ([facility] Contact Info) Description 05/18/2024 Telephone [facility] [address] [place] [address] Isa Lujan DO [address] [place] [address] Hospital Follow-up Social History Tobacco Use Types [...] from pt requesting a HDF appt. Hospital: [facility] Date of admission: 05/14/2024 Discharge date: 05/17/2024 Diagnosed: stone in the bladder *Send message to lA Clinical Care Coordinators documented in this encounter Plan of Treatment Upcoming Encounters Date Type Department Care Team (Late st Contact Info) Description 06/13/2024 9:15 AM EDT Office Visit [facility] [address] [place] [address] Isa Lujan, [address] [place] [address] 07/05/2024 10:45 AM EDT Procedure Visit [facility] [address] [place] [address] Isa Lujan, [address] [place] [address] documented as of this encounter Visit Diagnoses Not on filedocumented in this encounter Additional Health Concerns Assessment Noted Time PHQ-9 Depression Total Score: 11 024 11:02 AM EDT documented as of this encounter Care Teams Welder Apprentice Relationship Specialty Start Date End Date Isa Lujan DO [address] [place] [address] PCP - General Family Medicine 04/22/20 documented as of this encounter
--- OUTSIDE RECORDS SUMMARY | 2024-06-01 17:54 | XMS_ITS | Encounter Summary ---
Author Organization [facility] [facility] Address [address] [facility] 7t [place] [address] Care Team Providers Care Bet Taker Name Role Phone Isa Lujan DO Primary Care Provider Encounter Details Date Type Department Care Team (Late st Contact Info) Description 01/30/2022 Orders Only [facility]EDS [address] [place] [address] Isa Jacobson LPN Social History Tobacco Use [...] Description 06/13/2024 9:15 AM EDT Office Visit [address] [address] Isa Lujan DO [address] [place] [address] 07/05/2024 10:45 AM EDT Procedure Visit [address] [address] Isa Lujan DO [address] [place] [address] documented as of this encounter Visit Diagnoses Not on filedocumented in this encounter Care Teams Bet Taker Relationship Specialty Start Date End Date Isa Lujan DO [address] [place] [address] PCP - General Family Medicine 04/22/20 documented as of this encounter
--- OUTSIDE RECORDS SUMMARY | 2024-06-01 17:54 | XMS_ITS | Encounter Summary ---
Author Organization [employer] Address [address] [facility] 7t [place] [address] Care Team Providers Care Front End Web Designer Name Role Phone Isa Lujan DO Primary Care Provider Encounter Details Date Type Department Care Team (Late Contact Info) Description 05/22/2022 Orders Only [facility]EDS [address] [place] [address] Isa Jacobson LPN Social History Tobacco Use [...] Description 06/13/2024 9:15 AM EDT Office Visit [facility] [address] [place] [address] Isa Lujan DO [address] [place] [address] 07/05/2024 10:45 AM EDT Procedure Visit [address] [address] Isa Lujan DO [address] [place] [address] documented as of this encounter Visit Diagnoses Not on filedocumented in this encounter Additional Health Concerns Assessment Noted Time PHQ-9 Depression Total Score: 14 02/04/ 022 11:11 AM EST documented as of this encounter Care Teams Front End Web Designer Relationship Specialty Start Date End Date Isa Lujan DO [address] [facility] [place] [address] PCP - General Family Medicine 04/22/20 documented as of this encounter
--- OUTSIDE RECORDS SUMMARY | 2024-06-01 17:54 | XMS_ITS | Encounter Summary ---
Author Organization [employer] Address [address] [facility] 7t [place] [address] Care Team Providers Care Social Services Assistant Name Role Phone Isa Lujan DO Primary Care Provider [phone] Reason for Visit * Reason Comments Med Refill Encounter Details Date Type Department Care Team ([facility] st Contact Info) Description 01/25/2023 Refill [facility] MEDICINE [address] [place] [address] Isa Lujan DO [address] [place] [address] Mild persistent asthma without complication Social History [...] Description 06/13/2024 9:15 AM EDT Office Visit [facility] MED[facility]INE [address] [place] [address] Isa Lujan DO [address] [place] [address] 07/05/2024 10:45 AM EDT Procedure Visit [facility] [address] [place] [address] Isa Lujan DO [address] [place] [address] documented as of this encounter Visit Diagnoses Diagnosis Mild persistent asthma without complication documented in this encounter Additional Health Concerns Assessment Noted Time PHQ-9 Depression Total Score: 10 023 10:47 AM EDT documented as of this encounter Care Teams Social Services Assistant Relationship Specialty Start Date End Date Isa Lujan DO [address] [place] [address] PCP - General Family Medicine 04/22/20 documented as of this encounter
== END 2024-06-01 15:10 | disposition home or self-care (01) ==
LOC: HO.MAMMO 15:09
PROVIDERS: PCP Family Medicine; Visit Provider Family Medicine
DX: Z12.31 Encounter for screening mammogram for malignant neoplasm of breast (principal)
CPT/HCPCS: 77063; 77067

== ENCOUNTER → 2024-06-01 15:30 | Outpatient (BNV) | payer MEDICAID, SELFPAY | PROVIDERS: PCP Family Medicine; Visit Provider Internal Medicine | DX: Z12.31 Encounter for screening mammogram for malignant neoplasm of breast (principal) | CPT/HCPCS: 77063; 77067 ==

== ENCOUNTER 2024-06-13 09:55 | Outpatient (REF) | payer MEDICAID, SELFPAY ==
--- OUTSIDE RECORDS SUMMARY | 2024-06-13 11:13 | XMS_ITS | Encounter Summary ---
Author Organization [employer] Address [address] [facility] 7t [place] [address] Care Team Providers Care Station Usher Name Role Phone Isa Lujan DO Primary Care Provider Encounter Details Date Type Department Care Team (Late Contact Info) Description 04/22/2022 Orders Only [facility]EDS [address] [place] [address] Isa Jacobson LPN Social History Tobacco Use [...] Department Care Team (Late Contact Info) Description 07/05/2024 10:45 AM EDT Procedure Visit [facility] MEDICINE [address] [place] [address] Isa Lujan DO [address] [place] [address] documented as of this encounter Visit Diagnoses Not on filedocumented in this encounter Additional Health Concerns Assessment Noted Time PHQ-9 Depression Total Score: 14 022 11:11 AM EST documented as of this encounter Care Teams Station Usher Relationship Specialty Start Date End Date Isa Lujan DO [address] [place] [address] PCP - General Family Medicine 04/22/20 documented as of this encounter
--- OUTSIDE RECORDS SUMMARY | 2024-06-13 11:13 | XMS_ITS | Encounter Summary ---
Author Organization [employer] [facility] Address [address] [place] [address] 7t [place] [address] Care Team Providers Care Supplier Quality Manager Name Role Phone Isa Lujan DO Primary Care Provider Encounter Details Date Type Department Care Team (Late st Contact Info) Description 01/30/2022 Orders Only [facility] MED [facility] PEDS [address] [place] [address] Isa Jacobson LPN Social History Tobacco Use [...] Description 07/05/2024 10:45 AM EDT Procedure Visit [facility] [address] [place] [address] Isa Lujan DO [address] [place] [address] documented as of this encounter Visit Diagnoses Not on filedocumented in this encounter Care Teams Supplier Quality Manager Relationship Specialty Start Date End Date Isa Lujan DO [address] [place] [address] PCP - General Family Medicine 04/22/20 documented as of this encounter
--- OUTSIDE RECORDS SUMMARY | 2024-06-13 11:13 | XMS_ITS | Encounter Summary ---
Author Organization [employer] Address [address] [facility] 7t [place] [address] Care Team Providers Care Generating Station Mechanic Name Role Phone Isa Lujan DO Primary Care Provider [phone] Reason for Visit * Reason Comments Med Refill Encounter Details Date Type Department Care Team ([facility] st Contact Info) Description 01/25/2023 Refill [facility] [address] [place] [address] Isa Lujan DO [address] [place] [address] Mild persistent asthma without complication Social History [...] Description 07/05/2024 10:45 AM EDT Procedure Visit [facility] [address] [place] [address] Isa Lujan DO [address] [place] [address] documented as of this encounter Visit Diagnoses Diagnosis Mild persistent asthma without complication documented in this encounter Additional Health Concerns Assessment Noted Time PHQ-9 Depression Total Score: 10 023 10:47 AM EDT documented as of this encounter Care Teams Generating Station Mechanic Relationship Specialty Start Date End Date Isa Lujan DO [address] [place] [address] PCP - General Family Medicine 04/22/20 documented as of this encounter
--- OUTSIDE RECORDS SUMMARY | 2024-06-13 11:13 | XMS_ITS | Clinical Summary ---
Author Organization [email or web address] Address [address] [place] [address] 7[address] [place] [address] Care Team Providers Care Wheel Cleaner Name Role Phone Tai Isa Primary Care Provider [phone] Allergies No known active allergies Medications senna [...] IN THE MORNING AND IN THE EVENING Active FLUoxetine (PROzac) 20 MG capsule TAKE 2 CAPSULES BY MOUTH ONCE DAILY IN THE MORNING Active hydrOXYzine pamoate (Vistaril) 50 MG capsule TAKE 1-2 CAPSULES BY MOUTH TWICE DAILY NEEDED FOR ANXIETY Active zolpidem (Ambien) 10 MG tablet Take 10 mg by mouth if needed at bedtime. 023 Active ibuprofen 600 MG tabletIndications :New onset of headaches TAKE 1 TABLET BY MOUTH EVERY 6 HOURS NEEDED FOR PAIN OR FOR HEADACHE 40 tablet 2 023 Active Diclofenac Sodium 1 % gel Apply 2 g topically if needed in the morning, at noon, in the evening, and at bedtime (pain). 150 g 3 024 Active sodium chloride ([place] Nasal [place]) 0.65 % nasal spray Administer 1 spray [...] BY MOUTH EVERY DAY 90 tablet 1 024 Active D3 Super Strength 50 MCG (2000 [...] MORNING AND AT BEDTIME 180 capsule 3 03/18/2 025 Active Fiber-Lax 625 MG tablet TAKE 1 TABLET BY MOUTH TWICE DAILY IN THE MORNING AND AT BEDTIME 180 tablet 3 Active amitriptyline (Elavil) 25 MG tablet TAKE 2 TABLETS BY MOUTH EVERY DAY AT BEDTIME 180 tablet 3 Active Aspirin Low Dose 81 MG EC tablet Take 1 tablet by mouth Once per day. Active atorvastatin (Lipitor) 40 MG tablet Take 1 tablet by mouth Once per day. Active metoprolol succinate XL (Toprol-XL) 25 MG 24 hr tablet Take 1 tablet by mouth Once per day. Active nitroglycerin (Nitrostat) 0.[address] 1 TABLET UNDER TONGUE EVERY 5 MIN NEEDED FOR CHEST PAIN, MAX OF 3 DOSES/15 MIN CALL 911/SEEK MEDICAL ATTENTION IF PAIN PERSISTS Active omeprazole (PriLOSEC) [address] capsuleIndication s:Chronic GERD Take 1 capsule (20 mg) by mouth before breakfast and before evening meal. take 1 capsule (20MG) by oral route every day before a meal 180 capsule 3 025 2025 Active omeprazole (PriLOSEC) [address] capsuleIndication s:Chronic GERD take 1 capsule (20MG) by oral route every day before a meal 90 capsule 3 024 2024 Discontinued(R eorder (will not trigger notification to Pharmacy)) butalbital-acetam inophen-caffeine 50-325-40 MG tablet Take 1 [...] Encounters Date Type Department Care Team Description 06/13/2024 9:15 AM EDT Office Visit [facility] [address] [place] [address] Isa Lujan DO Chest pain, unspecified type (Primary Dx); Chronic GERD; Gallstones; Secondary amenorrhea 06/13/2024 Travel 06/01/2024 Orders Only [facility] [address] [place] [address] Isa Lujan DO 05/23/2024 Telephone [facility] [address] [place] [address] Isa Lujan DO Results 05/18/2024 Patient Outreach [facility] [address] [place], [place] [phone] Isa Lujan DO Transition Of Care (Tcm) (HDF unscheduled. ) 05/18/2024 Telephone [facility] [place] [address] Isa Lujan DO Hospital Follow-up 05/02/2024 Telephone [facility] [place] [address] Isa Lujan DO Prior Authorization ([employer] denial) 05/02/2024 Refill [facility] [address] Isa Lujan DO 04/28/2024 Population Health Risk Score [facility] () [address] [phone] Provider, Population Health Generic 04/17/2024 Telephone [facility] [place] [address] Kayla Bucio LPN 04/14/2024 11:15 AM EST Office Visit [facility] [place] [address] Isa Lujan DO Major depression, recurrent, chronic (CMS/HCC) (Primary Dx); Prediabetes; Mild persistent asthma without complication; Chronic allergic rhinitis; Chronic gastroesophageal reflux disease; Chronic constipation; Chronic tension-type headache, not intractable; Leukocytosis, unspecified type; Chest pain, unspecified type; Pelvic pain; Healthcare maintenance; BMI 39.0-39.9,adult 04/14/2024 Orders Only [facility] [address] [place] [address] Isa Lujan DO 04/14/2024 Travel 04/11/2024 Travel 04/04/2024 Refill [facility] [place] [address] Isa Lujan DO Vitamin D deficiency from Last 3 Months Immunizations Name Administration [...] Access Q2 Not on file 10/15/2023 Comments No Sex and Gender Information Value Date Recorded Sex Assigned at Female 12/15/2021 10:21 AM EDT Legal Sex Female 10:21 AM EDT Gender Identity Female 12/15/2021 10:21 AM EDT Sexual Orientation Don't know 12/15/2021 10 :21 AM EDT Last Filed Vital Signs Vital Sign Reading Time Taken Comments Blood Pressure 122/70 06/13/2024 9:05 AM EDT Pulse 70 06/13/2024 9:05 AM EDT Temperature 36.8 ??C (98.3 ??F) 06/13/2024 9:05 AM ED T Respiratory Rate 21 06/13/2024 9:05 AM EDT Oxygen Saturation 99% 06/13/2024 9:05 AM EDT Inhaled Oxygen Concentration - - Weight 106 kg (234 lb 6 oz) 06/13/2024 9:05 AM E DT Height 167.6 cm (5' 6 ) 06/13/2024 9:05 AM EDT Body Mass Index 37.83 06/13/2024 9:05 AM EDT Plan of Treatment Upcoming Encounters Date Type Department Care Team (Late st Contact Info) Description 07/05/2024 10:45 AM EDT Procedure Visit [facility] [address] [place], [place] [phone] Isa Lujan DO [address] [place], [place] [phone] Health Maintenance Due Date Last Done Comments CT Colonography 1971 Colonoscopy 1971 Colorectal Cancer Screening 1971 FIT DNA/Cologuard 1971 FIT 1971 FOBT 1971 Sigmoidoscopy 1971 Family Planning (PISQ) 07/30/1986 Hepatitis B Vaccines (1 of 3 - 19+ 3-dose series) 07/30/1990 Pap Smear 07/30/1992 Cervical Cancer Screening 07/30/2001 HPV/Cotest 07/30/2001 Zoster Vaccines (1 of 2) 07/30/2021 Pneumococcal Vaccine: 50+ Years (2 of 2 - PCV) 02/04/2023 02/04/2022 COVID-19 Vaccine (3 - 2023-2 5 season) 2023 05/31/2020, 05/03/2020 Influenza Vaccine (#1) 2023 Diabetes: Hemoglobin A1C 04/29/2024 024, 06/17/2022, 02/18/2022 SDOH Screening 08/29/2024 08/30/2023 Depression Screening 09/06/2024 09/07/2023, 09/07/2023 Mammogram 06/01/2025 06/01/2024, 05/27/2023 Alcohol/Substance Use Screening 06/13/2025 06/13/2024 Tobacco Screening 06/13/2025 06/13/2024 Lipid Panel 04/29/2028 04/30/2023, 02/18/2022 DTaP/Tdap/Td Vaccines [...] Comments BI MAMMOGRAM SCREENING TOMOSYNTHESIS BILATERAL Routine 06/01/2024 3:12 PM EDT US PELVIS TRANSVAGINAL Routine 05/17/2024 7:45 PM EDT Pelvic pain US ABDOMEN COMPLETE Routine 05/17/2024 7 :11 PM EDT Chronic gastroesophageal reflux disease HELICOBACTER PYLORI, UREA BREATH TEST Routine 04/14/2024 12:44 PM EST HEPATITIS C AB W/REFL TO HCV RNA, QN, PCR Routine 04/30/2023 11:39 AM EDT Prediabetes HIV 1/2 ANTIGEN/ANTIBODY, FOURTH GENERATION W/RFL Routine 04/30/2023 11:39 AM EDT Prediabetes HEMOGLOBIN A1C Routine 04/30/2023 11:39 AM EDT Prediabetes LIPID PANEL, STANDARD Routine 04/30/2023 11:39 AM EDT Prediabetes from Last 3 Months or Most Recently Relevant to Health Maintenance Results * BI Mammogram Screening Tomosynthesis Bilateral (06/01/2024 3:12 PM EDT) Anatomical Region Laterality Modality Breast Bilateral Mammography 06/01/2024 3:12 PM EDT Narrative 06/10/2024 8:54 PM EDT ? [facility] [place] ? [address] ?[place] [address] ?[phone] ? Mammography Report ? Signed ? Patient: Radha Tinajero ?MR#: [id number] ?? [id number] ? : 1970 ?Acct:[id number] ? Age/Sex: 53 / F ?ADM Date: 06/01/24 ? Loc: HO.MAMMO ? Attending Dr: Isa Lujan DO ? Ordering Physician: Isa Lujan DO ?Results: 1N ?? egative ? Date of Service: 06/01/24 ?Follow Up: 1 Year From Orig ?? inal Mammogram ? Procedure(s): MM tomosynthesis screening BI ?? Accession Number(s): [id number] ? cc: Isa Lujan Aidan DO ? EXAMINATION: ?? MM SCREENING DIGITAL BREAST TOMOSYNTHESIS, BILATERAL ? CLINICAL INFORMATION: ? Screening. Asymptomatic. ? COMPARISON: ?? Mammography: Comparison is made with available priors ? TECHNIQUE: ?? Digital breast mammography with tomosynthesis is performed in both the ?? craniocaudal and mediolateral oblique views along with computer-aided ?? detection (CAD). ? FINDINGS: ?? There are scattered areas [...] due date for their next mammogram. ? Electronically signed by: ??Amalia Reese DO ??06/10/2024 08:51 PM EDT ? Dictated By: ?Amalia Reese DO ? Signed By: ?<Electronically signed by Amalia Reese, DO in OV> ? 06/10/242050 ? DD/ 1512 ? TD/TT: 06/01/240 ? String Studies Director: ? Procedure Note Gregoria Barr - 06/10/2024 [facility] [address] [place] [address] [place] [address] Mammography Report Signed Patient: Radha TinajeroMR#: [id number] : 1970Acct:[id number] Age/Sex: 53 / FADM Date: 06/01/24 Loc: HO.MAMMO Attending Dr: Isa Lujan DO Ordering Physician: Isa Lujanults: 1N egative Date of Service: 06/01/24Follow Up: 1 Year From Orig inal Mammogram Procedure(s): MM tomosynthesis screening BI Accession Number(s): [id number] cc: Isa Lujan DO EXAMINATION: MM SCREENING DIGITAL BREAST TOMOSYNTHESIS, BILATERAL CLINICAL INFORMATION: Screening. Asymptomatic. COMPARISON: Mammography: Comparison is made with available priors TECHNIQUE: Digital breast mammography with tomosynthesis is performed in both the craniocaudal and mediolateral oblique views along with computer-aided detection (CAD). FINDINGS: There are scattered areas of fibroglandular [...] target due date for their next mammogram. Electronically signed by: Amalia Reese DO 06/10/2024 08:51 PM EDT Dictated By: Amalia Reese DO Signed By: <Electronically signed by Amalia Reese DO in OV> 06/10/242050 DD/ 1512 TD/TT: 06/01/24 1530 String Studies Director: us Isa Lujan DO IMG BI PROCEDURES Edited Res ult - Final * US Pelvis Transvaginal (05/17/2024 7:45 PM EDT) Anatomical Region Laterality Modality Pelvis Ultrasound 05/17/2024 7:45 PM EDT Narrative 05/17/2024 7:46 PM EDT ? [facility] ?[address] ?[place] [address] ? Ultrasound Report ? Signed ? Patient: Lior,Radha ?MR#: [id number] ?? [id number] ? : 1970 ?Acct:[id number] ? Age/Sex: 53 / F ?ADM Date: 04/02/25 ? Loc: HO.US ? Attending Dr: Isa Lujan DO ? Ordering Physician: Isa Lujan DO ?? Date of Service: 05/17/24 ?? Procedure(s): US pelvic and transvaginal ?? Accession Number(s): [id number] ? cc: Isa Lujan DO ? CLINICAL [...] by Marcelino Salas MD in OV> ? 05/17/24 1946 ? DD/ 44 ? TD/TT: 05/17/241944 ? String Studies Director: ? Procedure Note Momo, Gregoria - 05/17/2024 [place] [address] Ultrasound Report Signed Patient: Radha TinajeroMR#: [id number] : 1970Acct:[id number] Age/Sex: 53 / FADM Date: 05/17/24 Loc: HO.US Attending Dr: Isa Lujan DO Ordering Physician: Isa Lujan DO Date of Service: 05/17/24 Procedure(s): US pelvic and transvaginal Accession Number(s): [id number] cc: Isa Ljuan DO CLINICAL HISTORY: intermittent pelvic pain cramping [...] in OV> 05/17/241945 DD/ 44 TD/TT: 05/17/241944 String Studies Director: us Isa Lujan DO IMG US PROCEDURES Final Resu lt * US Abdomen Complete (05/17/2024 7:11 PM EDT) Anatomical Region Laterality Modality Abdomen Ultrasound 05/17/2024 7:11 PM EDT Narrative 05/17/2024 7:13 PM EDT ? [facility] ?[address] ?[place] [address] ? Ultrasound Report ? Signed ? Patient: Radha Tinajero ?MR#: [id number] ?? [id number] ? : 1970 ?Acct:[id number] ? Age/Sex: 53 / F ?ADM Date: 05/17/24 ? Loc: HO.US ? Attending Dr: Isa Lujan DO ? Ordering Physician: Isa Lujan DO ?? Date of Service: 05/17/24 ?? Procedure(s): US abdomen complete ?? Accession Number(s): [id number] ? cc: Isa Lujan DO ? CLINICAL [...] ? DD/ 10 ? TD/TT: 05/17/241910 ? String Studies Director: ? Procedure Note Momo, Gregoria - 05/17/2024 [place] [address] Ultrasound Report Signed Patient: Radha TinajeroMR#: [id number] : 1970Acct:[id number] Age/Sex: 53 / FADM Date: 05/17/24 Loc: HO.US Attending Dr: Isa Lujan DO Ordering Physician: Isa Lujan DO Date of Service: 05/17/24 Procedure(s): US abdomen complete Accession Number(s): [id number] cc: Isa Lujan DO CLINICAL HISTORY: increasing [...] in OV> 05/17/241911 DD/ 10 TD/TT: 05/17/241910 String Studies Director: Isa Lujan DO IMG US PROCEDURES Final Resu lt * Helicobacter pylori, Urea Breath Test (04/14/2024 12:44 PM EST) H. pylori Breath Test Negative Negative [facility] Comment:Antimicrobials, prot on pump inhibitors and bismuthpreparations are known to suppress H. pylori. Ingestingthese medications within two weeks prior to performing thebreath test may produce negative test results. A positiveresult is still clinically valid. 04/14/2024 12:4 4 PM EST 04/14/2024 5:55 PM EST Isa Lujan DO LAB BLOOD ORDERABLES Final R esult Performing Organization Address [facility]/State/ZIP Co de Phone Number [facility] [address] [place] [phone] * Hepatitis C Antibody with Reflex to HCV, RNA, Quantitative, Real-Time PCR (04/30/2023 11:39 AM EDT) Hepatitis C Antibody Nonreactive Nonreactive [facility] Comment:Antibodies to HCV no t detected; does not exclude early acuteHCV infection. Blood Venous blood specimen / Unknown 04/30/2023 11:39 AM EDT 04/30/2023 1:01 PM EDT Isa Lujan DO LAB BLOOD ORDERABLES Final R esult Performing Organization Address City/[facility]/ZIP Co de Phone Number [facility] [address] [place] [phone] * HIV-1/2 Antigen and Antibodies, Fourth Generation, with Reflexes (04/30/2023 11:39 AM EDT) HIV AB/AG Nonreactive Nonreactive [facility] Comment:HIV-1 p24 Ag and/or HIV-1/HIV-2 Ab not detected.A test result that is nonreactive does not exclude thepossibility of exposure to or infection with HIV-1 and/orHIV-2. Nonreactive results in this assay for individualswith prior exposure to HIV-1 and/or HIV-2 may be due toantigen and antibody levels that are below the limit ofdetection of this assay.The [employer] HIV Ag/Ab Combo assay result andsupplemental assay results should be interpreted inconjunction with the patient's clinical presentation,history and other laboratory results. If the results areinconsistent with clinical evidence, additional testing issuggested to confirm the result. Blood Venous blood specimen / Unknown 04/30/2023 11:39 AM EDT 04/30/2023 1:01 PM EDT Isa Lujan DO LAB BLOOD ORDERABLES Final R esnew [facility] Performing Organization Address [facility] Co de Phone Number [facility] [address] [place] [phone] * Hemoglobin A1c (04/30/2023 11:39 AM EDT) Hemoglobin A1c 5.5 <6.0 % [facility] Comment:Hemoglobin A1C Refer ence Range Adults: 4.8 - 6.0 % Non diabetic: < 6.0 % Goal: < 7.0 %Additional Action Suggested: > 8.0 %Note: Hemoglobin A1c results are invalid for patients with abnormal amounts of HbF. Blood transfusions may impact the HbA1c concentration in the patient sample. Estimated Average Glucose 111 mg/dL [facility] Comment:eAG = Estimated ave rage glucose which is %A1C expressed asaverage glucose, using the formula of the [id number] Glucose study (ADAG), Diabetes Care, Vol.31,#8,Sep. 2007 Blood Venous blood specimen / Unknown 04/30/2023 11:39 AM EDT 04/30/2023 1:01 PM EDT Isa Lujan DO LAB BLOOD ORDERABLES Final R esult Performing Organization Address [facility] Co de Phone Number [facility] [address] [place] [phone] * Lipid Panel, Standard (04/30/2023 11:39 AM EDT) Triglycerides 111 <150 mg/dL [facility] Comment:Desirable Triglyceri de: less than 150 mg/dLBorderline High Triglyceride 150-199 mg/dLHigh Triglyceride: 200-499 mg/dLVery High Triglyceride: greater than or equal to 5OO mg/dL Cholesterol 151 <200 mg/dL [facility] Comment:Desirable Cholestero l: less than 200 mg/dLBorderline High Cholesterol: 200-239 mg/dLHigh Cholesterol: greater than 239 mg/dL LDL Cholesterol Calculated 78 <100 mg/dL [facility] Comment:Desirable LDL: less than 100 mg/dLNear Optimal/Above Optimal LDL: 110- 129 mg/dLBorderline High LDL: 130-159 mg/dLHigh LDL: 160-189 mg/dLVery High LDL: greater than or equal to 190 mg/dL HDL Cholesterol 51 >40 mg/dL [facility] Comment:Desirable HDL: great er than 40 mg/dL Note: This HDL assay may give artificially low results in patients with liver disease. Blood Venous blood specimen / Unknown 04/30/2023 11:39 AM EDT 04/30/2023 1:01 PM EDT us Isa Lujan DO LAB BLOOD ORDERABLES Final R esult Performing Organization Address [facility]/ZIP Co de Phone Number [facility] [address] [place] [phone] from Last 3 Months or Most Recently Relevant to Health Maintenance [place] [address] [place] [address] C3 Care Teams Wheel Cleaner Relationship Specialty Start Date End Date Isa Lujan DO [address] [place] [phone] PCP - General Family Medicine 04/22/20
--- OUTSIDE RECORDS SUMMARY | 2024-06-13 11:13 | XMS_ITS | Encounter Summary ---
Author Organization [employer] Address [address] [facility] 7t [place] [address] Care Team Providers Care Hotel Engineer Name Role Phone Isa Lujan DO Primary Care Provider Reason for Visit * Reason Onset Date Comments Hospital Follow-up 05/18/2024 Encounter Details Date Type Department Care Team ([facility] Contact Info) Description 05/18/2024 Telephone [facility] [address] [place] [address] Isa Lujan DO [address] [place] [address] Hospital Follow-up Social History Tobacco Use Types [...] from pt requesting a HDF appt. [place] [facility] Date of admission: 05/14/2024 Discharge date: 05/17/2024 Diagnosed: stone in the bladder *Send message to Al Clinical Care Coordinators documented in this encounter Plan of Treatment Upcoming Encounters Date Type Department Care Team (Late st Contact Info) Description 07/05/2024 10:45 AM EDT Procedure Visit [facility] [address] [place] [address] Isa Lujan DO [address] [place] [address] documented as of this encounter Visit Diagnoses Not on filedocumented in this encounter Additional Health Concerns Assessment Noted Time PHQ-9 Depression Total Score: 11 024 11:02 AM EDT documented as of this encounter Care Teams Hotel Engineer Relationship Specialty Start Date End Date Isa Lujan DO [address] [place] [address] PCP - General Family Medicine 04/22/20 documented as of this encounter
--- OUTSIDE RECORDS SUMMARY | 2024-06-13 11:13 | XMS_ITS | Encounter Summary ---
Author Organization [employer] Address [address] [facility] [address] [place] [address] Care Team Providers Care Structural Steel Worker Helper Name Role Phone Isa Lujan DO Primary Care Provider [phone] Encounter Details Date Type Department Care Team (Late Contact Info) Description 05/22/2022 Orders Only [facility] [address] [place] [address] Isa Jacobson LPN Social History Tobacco Use [...] Visit [facility] [address] [place] [address] Isa Lujan DO [address] [place] [address] documented as of this encounter Visit Diagnoses Not on filedocumented in this encounter Additional Health Concerns Assessment Noted Time PHQ-9 Depression Total Score: 14 022 11:11 AM EST documented as of this encounter Care Teams Structural Steel Worker Helper Relationship Specialty Start Date End Date Isa Lujan DO [address] [place] [address] PCP - General Family Medicine 04/22/20 documented as of this encounter
--- OUTSIDE RECORDS SUMMARY | 2024-06-13 11:14 | XMS_ITS | Encounter Summary ---
Author Organization [employer] Address [address] [place] [address] Care Team Providers Care Insulation Power Unit Tender Name Role Phone Isa Lujan DO Primary Care Provider [phone] Encounter Details Date Type Department Care Team ([facility] st Contact Info) Description 06/01/2024 Orders Only [facility] MEDICINE [address] [place] [address] Isa Lujan DO [address] [place] [address] Social History Tobacco Use Types Packs/Day Years [...] Description 07/05/2024 10:45 AM EDT Procedure Visit [facility] MEDICINE [address] [place] [address] Isa Lujan, DO [address] [place] [address] documented as of this encounter Procedures Procedure Name Priority Date/Time Associated Diagnosis Comments BI MAMMOGRAM SCREENING TOMOSYNTHESIS BILATERAL Routine 06/01/2024 3:12 PM EDT documented in this encounter Results * BI Mammogram Screening Tomosynthesis Bilateral (06/01/2024 3:12 PM EDT) Anatomical Region Laterality Modality Breast Bilateral Mammography 06/01/2024 3:12 PM EDT Narrative 06/10/2024 8:54 PM EDT ? [facility] ? [address] ?[place] [address] ?[phone] ? Mammography Report ? Signed ? Patient: Lior,Radha ?MR#: [id number] ?? [id number] ? : 1970 ?Acct:[id number] ? Age/Sex: 53 / F ?ADM Date: 04/17/25 ? Loc: HO.MAMMO ? Attending Dr: Isa Lujan DO ? Ordering Physician: Isa Lujan DO ?Results: 1N ?? egative ? Date of Service: 06/01/24 ?Follow Up: 1 Year From Orig ?? inal Mammogram ? Procedure(s): MM tomosynthesis screening BI ?? Accession Number(s): [id number] ? cc: Isa Lujan DO ? EXAMINATION: [...] ??Amalia Reese DO ??06/10/2024 08:51 PM EDT ?? RP ? Dictated By: ?Amalia Reese DO ? Signed By: ?<Electronically signed by Amalia Reese, DO in OV> ? 06/10/242050 ? DD/ 1512 ? TD/TT: 06/01/24 1530 ? Snow Removal/Plowing: ? Procedure Note Donalbertter, Image - 06/10/2024 Al [facility] [address] [place] [address] Mammography Report Signed Patient: Radha TinajeroMR#: [id number] : 1970Acct:[id number] Age/Sex: 53 / FADM Date: 06/01/24 Loc: HO.MAMMO Attending Dr: Isa Lujan DO Ordering Physician: Isa Lujanults: 1N egative Date of Service: 06/01/24Follow Up: 1 Year From Orig inal Mammogram Procedure(s): MM tomosynthesis screening BI Accession Number(s): [id number] cc: Isa Lujan DO EXAMINATION: MM SCREENING [...] OV> 06/10/242050 DD/ 1512 TD/TT: 06/01/24 1530 Snow Removal/Plowing: Isa Lujan DO IMG BI PROCEDURES Edited Res ult - Final documented in this encounter Visit Diagnoses Not on filedocumented in this encounter Additional Health Concerns Assessment Noted Time PHQ-9 Depression Total Score: 11 024 11:02 AM EDT documented as of this encounter Care Teams Insulation Power Unit Tender Relationship Specialty Start Date End Date Isa Lujan DO [address] [place] [address] PCP - General Family Medicine 04/22/20 documented as of this encounter
--- OUTSIDE RECORDS SUMMARY | 2024-06-13 11:14 | XMS_ITS | Encounter Summary ---
Author Organization [employer] Address [address] [facility] [address] [place] [address] Care Team Providers Care Research Associate Quality Control Qc Name Role Phone JacqueIsa armstrong Primary Care Provider [phone] Encounter Details Date Type Department Care Team (Latest Contact Info) Description 06/13/2024 Travel Social History Tobacco Use Types Packs/Day [...] Description 07/05/2024 10:45 AM EDT Procedure Visit [facility] MEDICINE [address] [place] [address] Isa Lujan DO [address] [place] [address] documented as of this encounter Visit Diagnoses Not on filedocumented in this encounter Additional Health Concerns Assessment Noted Time PHQ-9 Depression Total Score: 11 024 11:02 AM EDT documented as of this encounter Care Teams Research Associate Quality Control Qc Relationship Specialty Start Date End Date Isa Lujan DO [address] [place] [address] PCP - General Family Medicine 04/22/20 documented as of this encounter
--- OUTSIDE RECORDS SUMMARY | 2024-06-13 11:14 | XMS_ITS | Encounter Summary ---
Author Organization [employer] Address [address] [place] [address] Care Team Providers Care [employer] Home Economics Teacher Name Role Phone Isa Lujan DO Primary Care Provider Encounter Details Date Type Department Care Team ([facility] st Contact Info) Description 06/13/2024 9:15 AM EDT Office Visit [facility] MEDICINE [address] [place] [address] Isa Lujan DO [address] [place] [address] Chest pain, unspecified type (Primary Dx); Chronic GERD; Gallstones; Secondary amenorrhea Social History Tobacco Use Types Packs/Day Years [...] Mass Index 37.83 06/13/2024 9:05 AM EDT documented in this encounter Plan of Treatment Upcoming Encounters Date Type Department Care Team (Late st Contact Info) Description 07/05/2024 10:45 AM EDT Procedure Visit [facility] MEDICINE [address] [place] [address] Isa Lujan DO [address] [place] [address] Scheduled Orders Name Type Priority Associated Diagnoses Orde r Schedule hCG, Total, Quantitative Lab Routine Secondary amenorrhea Expected: 06/13/2024 (Approximate), Expires: 06/13/2025 documented as of this encounter Visit Diagnoses Diagnosis Chest pain, unspecified type- Primary Chronic GERD Gallstones Calculus of gallbladder without mention of cholecystitis or obstruction Secondary amenorrhea Absence of menstruation documented in this encounter Additional Health Concerns Assessment Noted Time PHQ-9 Depression Total Score: 11 024 11:02 AM EDT documented as of this encounter Care Teams [employer] Home Economics Teacher Relationship Specialty Start Date End Date Isa Lujan DO [address] [place] [id number] PCP - General Family Medicine 04/22/20 documented as of this encounter
[2024-06-13 11:24] LABS: MANUAL DIFF FLAG NO
[2024-06-13 11:43] LABS: Estimated Average Glucose 131 mg/dL; Hemoglobin A1C 128.2326 umol/L; Hemoglobin A1c % 6.2 % (<6.0); Total Hemoglobin (HGBA1C) 2893.6586 umol/L
[2024-06-13 11:45] LABS: Basophils Absolute Auto 0.1 X10*3/uL (0.0-0.2); Basophils Percent Auto 0.4 % (0-2); Eosinophils Absolute Auto 0.3 X10*3/uL (0.0-0.4); Eosinophils Percent Auto 2.2 % (0-4); Hemoglobin 10.8 g/dl (12.0-16.0); Imm Gran Abs Auto 0.05 X10*3/uL (0.00-0.03); Imm Gran Pct Auto 0.4 % (0.0-0.4); Lymphocytes Absolute Auto 2.8 X10*3/uL (1.2-4.9); Lymphocytes Percent Auto 24.3 % (20-40); Mean Corpuscular HGB Conc 31.8 g/dl (31.0-35.0); Mean Corpuscular Hemoglobin 23.2 pg (27.0-33.0); Mean Corpuscular Volume 73.1 fL (80.0-98.0); Mean Platelet Volume 10.8 fL (9.4-12.3); Monocytes Absolute Auto 0.7 X10*3/uL (0.1-1.2); Monocytes Percent Auto 5.6 % (2-11); Neutrophils Absolute Auto 7.8 x10*3/uL (2.0-8.3); Neutrophils Percent Auto 67.1 % (45-73); Platelet Count 322 X10*3/uL (160-400); Red Blood Count 4.65 X10*6/uL (4.20-5.50); Red Cell Distribution Width 15.4 % (11.0-16.0); White Blood Count 11.6 X10*3/uL (4.8-10.8)
[2024-06-13 12:09] LABS: HIV AB/AG Nonreactive (Nonreactive); HIV Num 1 0.06 S/CO (0.00-0.99); ~HepC Num1 0.12 S/CO (0.00-0.79); ~Hepatitis C Antibody Nonreactive (Nonreactive)
[2024-06-13 12:20] LABS: Alanine Aminotransferase 10 U/L (0-31); Alkaline Phosphatase 89 U/L (39-117); Anion Gap 12 (12-20); Aspartate Amino Transferase 19 U/L (5-31); Bilirubin Direct 0.2 mg/dL (0.0-0.5); Bilirubin Total 0.6 mg/dL (0.0-1.0); Blood Urea Nitrogen 8 mg/dL (9-16); Calcium 8.8 mg/dL (8.4-10.2); Carbon Dioxide 23 mmol/L (22-29); Chloride 108 mmol/L (96-108); Cholesterol 93 mg/dL (<200); Estimated Glomerular Filt Rate > 60; Glucose Random 159 mg/dL (60-115); HDL Cholesterol 41 mg/dL (>40); Iron 46 mcg/dL (30-160); LDL Cholesterol Calculated 35 mg/dL (<100); Percent Iron Saturation 15 % (15-50); Potassium 3.7 mmol/L (3.3-5.1); Sodium 139 mmol/L (135-145); Total Iron Binding Capacity 307 mcg/dL (228-428); Total Protein 7.2 g/dL (6.5-8.0); Triglycerides 87 mg/dL (<150); Unsaturated Iron Binding 261 ug/dL
[2024-06-13 12:22] LABS: Folate 6.4 ng/mL (> or = 4.0); Vitamin B12 249 pg/mL (200-900)
[2024-06-13 12:25] LABS: Ferritin 9 ng/mL (10-250); Free T4 (Free Thyroxine) 1.03 ng/dL (0.71-1.85); HCG Quantitative < 2 mIU/mL; Thyroid Stimulating Hormone 3.78 uIU/mL (0.32-4.0); Vitamin D 25-OH Total 37.3 ng/mL (>30)
[2024-06-15 09:44] LABS: RPR Rapid Plasma Reagin NON-REACTIVE (NON-REACTIVE)
== END 2024-06-13 09:56 | disposition home or self-care (01) ==
LOC: HO.HHCL 09:55
PROVIDERS: Visit Provider Family Medicine
DX: Z00.00 Encounter for general adult medical examination without abnormal findings (principal); F33.9 Major depressive disorder, recurrent, unspecified; R73.03 Prediabetes; J45.30 Mild persistent asthma, uncomplicated; J30.9 Allergic rhinitis, unspecified; K21.9 Gastro-esophageal reflux disease without esophagitis; K59.09 Other constipation; G44.229 Chronic tension-type headache, not intractable; D72.829 Elevated white blood cell count, unspecified; R07.9 Chest pain, unspecified; R10.2 Pelvic and perineal pain; Z68.39 Body mass index [BMI] 39.0-39.9, adult; N91.1 Secondary amenorrhea
CPT/HCPCS: 36415; 80048; 80061; 80076; 82306; 82607; 82728; 82746; 83036; 83540; 84439; 84443; 84702; 85025; 86592; 86803; 87389

== ENCOUNTER 2024-10-09 00:12 | Emergency (ER) | payer MEDICAID, SELFPAY ==
--- NOTE | 2024-10-09 | ECG_ITS ---
Test Reason : DIZZINES, HEADACHE, SOB Blood Pressure : */* mmHG Vent. Rate : 66 BPM Atrial Rate : 66 BPM P-R Int : 172 ms QRS Dur : 96 ms QT Int : 438 ms P-R-T Axes : 46 -9 2 degrees QTcB Int : 459 ms Normal sinus rhythm Normal ECG When compared with ECG of 16-Jan-2023 11:51, No significant change was found Referred By: Generic ED Physician Electronically Signed By: JAVI JUAN
--- NOTE | ~2024-10-09 | XR_ITS ---
CLINICAL HISTORY: chest pain 2 view chest x-ray Comparison: CR/SR - XR CHEST 2 VIEWS - 01/16/23 14:20 EST Findings: The lungs are clear. Normal size heart. No acute fracture. IMPRESSION: 1. No acute findings. This document has been electronically signed by: Woodrow Clark MD, PHD on 10/09/2024 01:46:52
--- NOTE | ~2024-10-09 | CT_ITS ---
CLINICAL HISTORY: worst headache of my life CT head without contrast Comparison: CT/SR - CT HEAD WITHOUT IV CONTRAST - 12/31/23 04:56 EST Findings: No intra-axial mass, midline shift, hydrocephalus, or acute hemorrhage. No significant atrophy-like change or white matter disease. The visualized paranasal sinuses and mastoid air cells are normal. The orbits are unremarkable. No skull fracture. IMPRESSION: 1. No acute intracranial findings. This document has been electronically signed by: Woodrow Clark MD, PHD on 10/09/2024 02:07:51
[2024-10-09 00:16] VITALS: BP 152/90; PULSE 75; O2SAT 100
[2024-10-09 00:28] VITALS: BP 130/80; PULSE 68; RESP 18; TEMP 37.4; O2SAT 98; BMI 36.8
[2024-10-09 00:47] LABS: Hematocrit 33.3 % (37.0-47.0); Hemoglobin 11.3 g/dl (12.0-16.0); Mean Corpuscular HGB Conc 33.9 g/dl (31.0-35.0); Mean Corpuscular Hemoglobin 25.0 pg (27.0-33.0); Mean Corpuscular Volume 73.7 fL (80.0-98.0); NRBC Abs Auto 0.000 X10*3/uL (0.0-0.012); NRBC Pct Auto 0.0 /100WBC (0.0-0.2); Platelet Count 319 X10*3/uL (160-400); Red Blood Count 4.52 X10*6/uL (4.20-5.50); White Blood Count 12.0 X10*3/uL (4.8-10.8)
[2024-10-09 01:01] LABS: Alanine Aminotransferase 9 U/L (0-31); Albumin Level 4.2 g/dL (3.5-5.0); Alkaline Phosphatase 77 U/L (39-117); Anion Gap 14 (12-20); Aspartate Amino Transferase 19 U/L (5-31); Blood Urea Nitrogen 15 mg/dL (9-16); Calcium 9.1 mg/dL (8.4-10.2); Carbon Dioxide 20 mmol/L (22-29); Chloride 109 mmol/L (96-108); Creatinine Clr Calc Pharmacy 84.9; Estimated Glomerular Filt Rate > 60; Magnesium 1.9 mg/dL (1.6-2.6); Potassium 3.9 mmol/L (3.3-5.1); Sodium 139 mmol/L (135-145); Total Protein 7.0 g/dL (6.5-8.0)
[2024-10-09 01:26] LABS: Lipase 27 U/L (8-78)
[2024-10-09 01:35] LABS: Troponin-I High Sensitivity < 2.7 ng/L (<3.5-17.0)
[2024-10-09] MEDS: Lactated Ringers 1,000 ML 999 ML IV (01:41)
[2024-10-09 04:03] VITALS: BP 120/55; PULSE 70; RESP 16; TEMP 36.6; O2SAT 99
[2024-10-09 05:45] VITALS: BP 132/65; PULSE 65; RESP 20; TEMP 37; O2SAT 99
--- NOTE | 2024-10-09 06:02 | ED.DIZZY ---
HPI - Dizziness General Chief Complaint: Headache Stated Complaint: Headache , dizziness Time Seen by Provider: 10/09/24 00:43 Source: patient Mode of arrival: ambulatory Limitations: language barrier History of Present Illness ED Provider: Dr. Isabel Cherry HPI Narrative: 54-year-old female with a history of asthma and arthritis presenting with dizziness and frontal headache ongoing for the last 24 hours or so. States she began to feel dizzy yesterday afternoon but developed a headache this evening around 11 30. Describes a frontal headache that is ?tightness? across the forehead and wrapping around her temples. No associated fever, vision changes, cough or cold-type symptoms, sinus congestion, sore throat, photophobia, nausea, vomiting, diarrhea, bowel changes, urinary complaints, skin rashes, chest pain or difficulty breathing. Related Data Home Medications ?Medication ?Instructions ?Recorded ?Confirmed amitriptyline 10 mg tablet 10 mg PO BEDTIME 06/16/22 05/24/24 cholecalciferol (vitamin D3) 50 50 mcg PO QAM 06/16/22 05/24/24 mcg (2,000 unit) capsule (Vitamin D3) fluoxetine 20 mg capsule 40 mg PO QAM 06/16/22 05/24/24 fluticasone propionate 220 1 puff inhalation BID 06/16/22 05/24/24 mcg/actuation HFA aerosol inhaler (Flovent HFA) fluticasone propionate 50 2 spray intranasal DAILY 06/16/22 05/24/24 mcg/actuation nasal spray,suspension loratadine 10 mg tablet 10 mg PO DAILY 06/16/22 05/24/24 zolpidem 10 mg tablet 10 mg PO BEDTIME PRN insomnia 06/16/22 05/24/24 aspirin 81 mg tablet,delayed 81 mg PO DAILY 05/24/24 05/24/24 release atorvastatin 40 mg tablet 40 mg PO DAILY 05/24/24 05/24/24 metoprolol succinate 25 mg 25 mg PO DAILY 05/24/24 05/24/24 tablet,extended release 24 hr nitroglycerin 0.4 mg sublingual mg sublingual 05/24/24 05/24/24 tablet Previous Rx's ?Medication ?Instructions ?Recorded docusate sodium 100 mg capsule 100 mg PO BEDTIME #90 caps 06/16/22 lorazepam 1 mg tablet 1 mg PO BEDTIME PRN Anxiety/sleep 01/16/23 #14 tabs sennosides 8.6 mg tablet (Natural 17.2 mg (2 x 8.6 mg) PO BEDTIME 06/23/23 Senna Laxative) constipation #180 tabs pantoprazole 40 mg tablet,delayed 40 mg PO DAILY #30 tabs 08/16/23 release aluminum-mag hydroxide-simethicone 10 ml PO Q6H PRN indigestion 11/17/23 200 mg-200 mg-20 mg/5 mL oral susp #3,000 mL (Maalox Advanced) famotidine 20 mg tablet (Pepcid) 20 mg PO BID PRN GERD #60 tabs 11/17/23 ondansetron 4 mg disintegrating 4 mg PO Q6H #14 tabs 11/17/23 tablet meclizine 25 mg tablet 25 mg PO TID dizziness #30 tabs 10/09/24 Allergies Allergy/AdvReac Type Severity Reaction Status Date / Time No Known Allergies Allergy Verified 10/09/24 00:31 Review of Systems Review of Systems: As per HPI, full review of systems performed and negative but for the above mentioned pertinent positives and negatives. [facility] Past Medical History Medical History Pre-diabetes Family History Family History Mother Diabetes 1.5, managed as type 2 HTN (hypertension) Heart disease High cholesterol Father No problems noted. Sister HTN (hypertension) Diabetes 1.5, managed as type 2 High cholesterol Sister Diabetes 1.5, managed as type 2 HTN (hypertension) High cholesterol Heart disease Social History Social History Household Members: Family and Children Alcohol intake: current Alcohol intake frequency: holidays/special occasions only Patient Tobacco Use Status: Never used Tobacco Smoked in Last 30 Days: No Use of substances other than those prescribed or required for medical reasons: No Advance Directives: No Advance Directives Information Provided: Yes Patient : No Physical Exam Exam: Exam: GENERAL: Ill-Appearing, appears uncomfortable. SKIN: Normal skin color for ethnicity, warm, dry, no rashes noted. HEENT: Normocephalic, atraumatic, no stridor, dry mucous membranes, dentition intact, EOMI, PERRLA, no nystagmus. NECK: Soft, supple, full ROM, midline structures nontender, no step-offs, no deformities, no lymphadenopathy. CHEST: Heart regular rhythm, no murmurs, symmetric chest rise and fall. PULMONARY: Clear to auscultation bilaterally, diminished at the bases, no labored breathing, no wheezes/rhales/rhonchi. ABDOMINAL: Soft, nondistended, nontender, positive bowel sounds in all quadrants. : Deferred. MUSCULOSKELETAL: Normal tone, full range of motion, no deformities, no peripheral edema. NEURO: Alert and oriented x3, CN II through XII intact, equal strength and sensation bilateral upper and lower extremities, no focal neurologic deficits. PSYCHIATRIC: Flat affect, fluid speech, good eye contact and appropriate demeanor. Vital Signs: Vital Signs: Last Vital Signs Temp 98.6 F 10/09/24 05:45 Pulse 65 10/09/24 05:45 Resp 20 10/09/24 05:45 BP 132/65 10/09/24 05:45 Pulse Ox 99 10/09/24 05:45 O2 Del Method Room Air 10/09/24 05:45 BMI result Body Mass Index 36.8 Medications Administered Discontinued Medications Generic Name Dose Route Start Last Admin Trade Name Freq PRN Reason Stop Dose Admin Lactated Ringer's 1,000 mls @ 999 mls/hr 10/09/24 00:52 10/09/24 05:45 Lr IV 10/09/24 01:52 Infused .Q1H1M ONE Infusion Ketorolac Tromethamine 15 mg 10/09/24 00:52 10/09/24 01:41 Ketorolac Tromethamine 15 Mg/Ml Vial IVPUSH 10/09/24 00:53 15 mg ONCE ONE Administration Meclizine HCl 50 mg 10/09/24 00:57 10/09/24 01:40 Meclizine Hcl 25 Mg Tablet PO 10/09/24 00:58 50 mg ONCE ONE Administration Metoclopramide HCl 10 mg 10/09/24 00:52 10/09/24 01:40 Metoclopramide Hcl 10 Mg/2 Ml Vial IVPUSH 10/09/24 00:53 10 mg ONCE ONE Administration Medical Decision Making Medical Decision Making [facility] Narrative: Patient presents today with a chief complaint of dizziness. Differential diagnosis is extremely broad and includes posterior circulation deficits causing vestibular basilar symptoms, anemia, hypovolemia, middle or inner ear problems, intracranial abnormality such as stroke bleed or tumor, electrolyte abnormalities, cardiac arrhythmia, among many others. This patient does not have any focal neurological findings at this time. Patient received a migraine cocktail and meclizine and has been sleeping for several hours. She is ambulatory to the restroom now and feels significantly improved. Suspect early viral syndrome given her constellation of symptoms. Discussed importance of follow-up as well as strict return precautions. Discharged in stable condition. Differential Diagnosis Differential Diagnoses: The differential diagnosis associated with the presentation includes (As above) Admission/Observation Consideration of admission/observation: Escalation of care including admission/observation considered Lab Data MDM Lab Attestation statement: I reviewed the patient's lab results. 10/09/24 00:41 10/09/24 00:41 Labs: Lab Results 10/09/24 10/09/24 Range/Units 00:41 01:06 WBC 12.0 H (4.8-10.8) X10*3/uL RBC 4.52 (4.20-5.50) X10*6/uL Hgb 11.3 L (12.0-16.0) g/dl Hct 33.3 L (37.0-47.0) % MCV 73.7 L (80.0-98.0) fL MCH 25.0 L (27.0-33.0) pg MCHC 33.9 (31.0-35.0) g/dl RDW 15.2 (11.0-16.0) % Plt Count 319 (160-400) X10*3/uL MPV 10.2 (9.4-12.3) fL Absolute Nucleated RBC 0.000 (0.0-0.012) X10*3/uL Nucleated RBC % (auto) 0.0 (0.0-0.2) /100WBC Sodium 139 (135-145) mmol/L Potassium 3.9 (3.3-5.1) mmol/L Chloride 109 H (96-108) mmol/L Carbon Dioxide 20 L (22-29) mmol/L Anion Gap 14 (12-20) BUN 15 (9-16) mg/dL Creatinine 0.93 (0.5-1.4) mg/dL Estim Creat Clear Calc 84.9 Estimated GFR > 60 Random Glucose 95 (60-115) mg/dL Calcium 9.1 (8.4-10.2) mg/dL Magnesium 1.9 (1.6-2.6) mg/dL Total Bilirubin 0.3 (0.0-1.0) mg/dL AST 19 (5-31) U/L ALT 9 (0-31) U/L Alkaline Phosphatase 77 (39-117) U/L Troponin I High Sens < 2.7 (<3.5-17.0) ng/L Total Protein 7.0 (6.5-8.0) g/dL Albumin 4.2 (3.5-5.0) g/dL Lipase 27 (8-78) U/L Independent Interpretation I performed an independent interpretation of an: EKG Interpretation: My independent interpretation of the ECG reveals normal sinus rhythm with rate of 66, normal axis, normal intervals, no ST elevations or depressions to suggest ischemic changes, no previous for comparison Radiology Impression Discussion of test interpretation with radiology: I have reviewed the radiologist's reading. Radiologist Impression: CT head without contrast Comparison: CT/SR - CT HEAD WITHOUT IV CONTRAST - 12/31/23 04:56 EST Findings: No intra-axial mass, midline shift, hydrocephalus, or acute hemorrhage. No significant atrophy-like change or white matter disease. The visualized paranasal sinuses and mastoid air cells are normal. The orbits are unremarkable. No skull fracture. IMPRESSION: 1. No acute intracranial findings. 2 view chest x-ray Comparison: CR/SR - XR CHEST 2 VIEWS - 01/16/23 14:20 EST Findings: The lungs are clear. Normal size heart. No acute fracture. IMPRESSION: 1. No acute findings. External Record Review External record reviewed: Office record Prescription Management I considered prescription management with: Other (Meclizine) Chronic Conditions Patient?s care impacted by: Other (Asthma, arthritis) Discharge Plan Discharge Clinical Impression: Vertigo, Acute tension headache Patient Disposition: Home, Self-Care Instructions: Acute Headache (ED), Dizziness (ED) Prescriptions: New meclizine 25 mg tablet 25 mg PO TID Qty: 30 0RF No Action sennosides [Natural Senna Laxative] 8.6 mg tablet 17.2 mg PO BEDTIME Qty: 180 3RF pantoprazole 40 mg tablet,delayed release (DR/EC) 40 mg PO DAILY Qty: 30 2RF Rx Instructions: take one tablet half an hour before breakfast lorazepam 1 mg tablet 1 mg PO BEDTIME PRN (Reason: Anxiety/sleep) Qty: 14 0RF famotidine [Pepcid] 20 mg tablet 20 mg PO BID PRN (Reason: GERD) Qty: 60 0RF alum-mag hydroxide-simeth [Maalox Advanced] 200-200-20 mg/5 mL suspension 10 ml PO Q6H PRN (Reason: indigestion) Qty: 3000 0RF ondansetron 4 mg tablet,disintegrating 4 mg PO Q6H Qty: 14 0RF metoprolol succinate 25 mg tablet extended release 24 hr 25 mg PO DAILY aspirin 81 mg tablet,delayed release (DR/EC) 81 mg PO DAILY nitroglycerin 0.4 mg tablet, sublingual sublingual atorvastatin 40 mg tablet 40 mg PO DAILY cholecalciferol (vitamin D3) [Vitamin D3] 50 mcg (2,000 unit) capsule 50 mcg PO QAM loratadine 10 mg tablet 10 mg PO DAILY fluoxetine 20 mg capsule 40 mg PO QAM zolpidem 10 mg tablet 10 mg PO BEDTIME PRN (Reason: insomnia) amitriptyline 10 mg tablet 10 mg PO BEDTIME fluticasone propionate 50 mcg/actuation spray,suspension 2 spray intranasal DAILY fluticasone propionate [Flovent HFA] 220 mcg/actuation HFA aerosol inhaler 1 puff inhalation BID docusate sodium 100 mg capsule 100 mg PO BEDTIME Qty: 90 3RF Print Language: [place]
[2024-10-09 06:45] VITALS: BP 132/65; PULSE 65; RESP 20; TEMP 37; O2SAT 99
== END 2024-10-09 06:45 | disposition home or self-care (01) ==
PROVIDERS: Emergency Provider Emergency Medicine; PCP Family Medicine
DX: G44.209 Tension-type headache, unspecified, not intractable (principal); R42 Dizziness and giddiness; R06.02 Shortness of breath; Z79.899 Other long term (current) drug therapy
CPT/HCPCS: 36415; 70450; 71046; 80053; 83690; 83735; 84484; 85027; 93005; 96361; 96374; 96375; 99285; J1885; J2765; J7120

== ENCOUNTER → 2024-10-09 00:51 | Outpatient (BNV) | payer MEDICAID, SELFPAY | PROVIDERS: Emergency Provider Emergency Medicine; PCP Family Medicine; Visit Provider Internal Medicine | DX: R42 Dizziness and giddiness (principal); R06.02 Shortness of breath; R51.9 Headache, unspecified | CPT/HCPCS: 93010 ==

== ENCOUNTER → 2024-10-09 00:59 | Outpatient (BNV) | payer MEDICAID, SELFPAY | PROVIDERS: Emergency Provider Emergency Medicine; Visit Provider General Practice | DX: R51.9 Headache, unspecified (principal); R07.9 Chest pain, unspecified | CPT/HCPCS: 70450; 71046 ==

== ENCOUNTER 2024-12-14 14:50 | Outpatient (AMB) | payer MEDICAID, SELFPAY ==
--- NOTE | 2024-12-14 15:10 | A.OFFVIS_ITS ---
Vital Signs 12/14/24 15:11 Height 5 ft 6 in Weight 220 lb 0.341 oz BMI 35.5 BP 108/72 Blood Pressure Location Lt brachial Position Sitting Pulse 74 Pulse Source Pulse Oximeter Intake Visit Reasons: follow up s/p cath r/s 07-13-24 Supervisor Die Casting Required: Yes Supervisor Die Casting Language: Nurse School Name: [employer] [id number] Allergies No Known Allergies Allergy (Verified 12/14/24 15:14) Medication List - Last Reconciled 12/14/24 by SELENA Chapman alum-mag hydroxide-simeth 200-200-20 mg/5 mL (Maalox Advanced) 10 mL PO Q6H PRN amitriptyline 10 mg PO BEDTIME amitriptyline 50 mg PO BEDTIME aspirin 81 mg PO DAILY atorvastatin 40 mg PO DAILY cholecalciferol (vitamin D3) (Vitamin D3) 50 mcg PO QAM docusate sodium 100 mg PO BEDTIME famotidine (Pepcid) 20 mg PO BID PRN fluoxetine 40 mg PO QAM fluticasone propionate 50 mcg/actuation 2 sprays intranasal DAILY fluticasone propionate 220 mcg/actuation (Flovent HFA) 1 puff inhalation BID loratadine 10 mg PO DAILY lorazepam 1 mg PO BEDTIME PRN meclizine 25 mg PO TID metoprolol succinate ER 25 mg PO DAILY nitroglycerin mg sublingual ondansetron 4 mg PO Q6H pantoprazole 40 mg PO DAILY sennosides (Natural Senna Laxative) 17.2 mg (2 x 8.6 mg) PO BEDTIME zolpidem 10 mg PO BEDTIME PRN HPI HPI follow up s/p cath r/s 07-13-24: Details: Radha is a 54-year-old female with past medical history of obesity, hy perlipidemia, prediabetes was seen at [facility] 04/2024 with abdominal discomfort without acute findings. She did have cardiac evaluation with echocardiogram showing low normal EF and regional wall motion abnormality. A nuclear stress test was done showing a small reversible defect. On follow-up visit here a cardiac catheterization was ordered however she did not follow through with it. Her last visit was 05/24/2024 and She now presents for follow- up. Today she reports that she has been getting discomfort in her chest but has difficulty describing the quality of the sensation. She does state it is when she is upset and when she climbs the stairs in her home. She also has shortness of breath with stair climbing and other physical activity. She is noticing heart palpitations where her heartbeats fast for about 5 minutes before it goes back to normal. This is newer for her. No lightheadedness, presyncope, syncope, falls. Taking meds as directed. She tells me she did not attend the cardiac catheterization appointment because she had a fever that day. Significant other is present. Certified teacher drama used. [facility] Medical History Pre-diabetes Family History Mother Diabetes 1.5, managed as type 2 HTN (hypertension) Heart disease High cholesterol Father No problems noted. Sister HTN (hypertension) Diabetes 1.5, managed as type 2 High cholesterol Sister Diabetes 1.5, managed as type 2 HTN (hypertension) High cholesterol Heart disease Social History Household Members: Family and Children Alcohol intake: current Alcohol intake frequency: holidays/special occasions only Patient Tobacco Use Status: Never used Tobacco Review of Systems Const All systems reviewed & are unremarkable except as noted in HPI and below ENT Reports dizziness Card Reports chest pain, Reports chest pain at rest, Reports chest pain with activity, Reports rapid heart rate, Denies pedal edema, Denies edema, Denies leg edema, Denies lightheadedness, Denies palpitations, Denies dyspnea, Denies dyspnea on exertion and Denies orthopnea Resp Denies cough, Denies dyspnea and Denies dyspnea on exertion GI Denies hematochezia and Denies change in stool character Musc Denies abnormal gait, Denies limited range of motion, Denies muscle cramps, Denies muscle weakness, Denies numbness, Denies radiating pain into limb, Denies stiffness and Denies tingling Neuro Denies abnormal gait, Reports dizziness, Denies numbness and Denies tingling Endo Denies palpitations Physical Exam Vital Signs: Last Vital Signs Pulse 74 12/14/24 15:11 BP 108/72 10/30/25 15:11 BMI result Body Mass Index 35.5 Const General: cooperative, healthy appearing, comfortable and no acute distress Orientation/consciousness: patient oriented x3 Neck Neck: Yes normal visual inspection Resp Effort & Inspection: normal respiratory effort Auscultation: clear to auscultation bilaterally, no rales, no rhonchi and no wheezes Cardio Rate: regular rate Rhythm: regular rhythm Heart sounds: S1 normal heart sound present, S2 normal heart sound present, no gallops, no murmurs and no rubs Neuro General: patient oriented x3 Extrem General: Yes normal to inspection, No no pedal edema and No calf tenderness Psych Appearance: grossly normal Mental Status: mental status grossly normal Speech and movement: Normal speech and movement present Office Procedures EKG Details: Today, read by me, normal sinus rhythm, low-voltage QRS, can not exclude prior anterior infarct, rate 73, QTC 436 milliseconds [id number], Complete Assessment & Plan Assessment & Plan (1) Precordial chest pain: Code(s): R07.2 - Precordial pain Category: Medical Plan: Reports current chest discomfort with emotional upset/stress and exertion. Prior [facility] evaluation for abdominal area discomfort 04/2024 with cardiac testing including normal troponin, EKG. She did have echocardiogram showing EF 50-55%, hypokinetic basal to mid lateral wall. A nuclear stress test was done 05/09/2024 showing a reversible perfusion defect in the apical to mid anterior wall, septal wall and part of apex, suggestive of ischemia. Cardiac catheterization was ordered last visit however she did not obtain, either canceled or no showed. Now with exertional symptoms. EKG today showing normal sinus rhythm, low- voltage QRS and can not exclude prior anterior infarct, rate 73. Spent time going over all the above with her in detail, MT risk reviewed. She is agreeable to pursue cardiac catheterization at this time. Will arrange for cardiac catheterization, question PCI. Will order preprocedure labs. Signs and symptoms of angina reviewed. Emergency care if ever needed for symptoms. Continue aspirin, atorvastatin and metoprolol. Unable to add additional antianginal agent due to low blood pressure. (2) Abnormal stress test: Code(s): R94.39 - Abnormal result of other cardiovascular function study Category: Medical Plan: As above (3) Abnormal echocardiogram: Code(s): R93.1 - Abnormal findings on diagnostic imaging of heart and coronary circulation Category: Medical Plan: As above Plan I discussed with the patient the necessity of a cardiac catheterization to evaluate her coronary arteries and the potential need for a stent. We reviewed the procedure details, including sedation and catheter insertion through the wrist. We discussed risks of MT/ stroke, kidney strain. I emphasized the importance of this procedure to prevent a heart attack and advised against delaying it. Orders: Orders Complete Blood Count Auto Diff Today R07.2 - Precordial pain, R93.1 - Abnormal findings on diagnostic imaging of heart and coronary circulation, R94.39 - Abnormal result of other cardiovascular function study Basic Metabolic Panel Today R07.2 - Precordial pain, R93.1 - Abnormal findings on diagnostic imaging of heart and coronary circulation, R94.39 - Abnormal result of other cardiovascular function study Prothrombin Time INR Today R07.2 - Precordial pain, R93.1 - Abnormal findings on diagnostic imaging of heart and coronary circulation, R94.39 - Abnormal result of other cardiovascular function study Patient Instructions: - Schedule and attend the cardiac catheterization procedure as soon as possible. - Monitor for chest pain during physical activity and reduce stress where possible. - Continue current medications Patient was informed and verbally consented to the use of an ambient scribe for clinic note documentation during this visit. Visit time spent on chart review, interview, assessment, orders, documentation. Coding Level of Care Code Est Pt Level 4 (84289) Complex EM visit Add On G2211 Diagnoses Precordial chest pain R07.2 Abnormal stress test R94.39 Abnormal echocardiogram R93.1 CPT Codes EKG - CPT: [id number], Complete ([id number]) Time Spent (min) 36
[2024-12-14 15:11] VITALS: BP 108/72; PULSE 74; BMI 35.5
--- OUTSIDE RECORDS SUMMARY | 2024-12-14 17:44 | XMS_ITS | Encounter Summary ---
Author Organization [employer] Address [address] [facility] 7[address] [place] [address] Care Team Providers Care Computer Language Coder Name Role Phone Isa Lujan DO Primary Care Provider [phone] Knight RN Unavailable [phone] Connie Lyles Unavailable Reason for Visit * Reason Comments Med Refill Encounter Details Date Type Department Care Team (Late st Contact Info) Description 01/25/2023 Refill [facility] [address] [place] [address] Isa Lujan DO [address] [place] [address] Mild persistent asthma without complication Social History [...] Care Team (Late st Contact Info) Description 01/29/2025 1:00 PM EST Office Visit [facility] [address] [place], [place] [phone] eGovanna Greer, OD [address] [place] [address] documented as of this encounter Visit Diagnoses Diagnosis Mild persistent asthma without complication documented in this encounter Additional Health Concerns Assessment Noted Time PHQ-9 Depression Total Score: 10 023 10:47 AM EDT documented as of this encounter Care Teams Computer Language Coder Relationship Specialty Start Date End Date Isa Lujan DO [address] [place] [address] PCP - General Family Medicine 04/22/20 Db Knight, RN [address] [place] [address] Registered Nurse Family Medicine 10/09/24 Connie Lyles 10/09/24 documented as of this encounter
--- OUTSIDE RECORDS SUMMARY | 2024-12-14 17:44 | XMS_ITS | Encounter Summary ---
Author Organization [employer] Address [address] [facility] 7t [place] [address] Care Team Providers Care Mini Shifter Name Role Phone Isa Lujan DO Primary Care Provider [phone] Knight RN Unavailable [phone] Connie Lyles Unavailable Encounter Details Date Type Department Care Team (Late st Contact Info) Description 04/22/2022 Orders Only [facility] [address] [place], [place] [phone] Isa Jacobson LPN Social History Tobacco Use [...] Description 01/29/2025 1:00 PM EST Office Visit [facility] [address] [place], [place] [phone] Geovanna Greer, OD [address] [place], [place] [phone] documented as of this encounter Visit Diagnoses Not on filedocumented in this encounter Additional Health Concerns Assessment Noted Time PHQ-9 Depression Total Score: 14 022 11:11 AM EST documented as of this encounter Care Teams Mini Shifter Relationship Specialty Start Date End Date Isa Lujan DO [address] [place] [address] PCP - General Family Medicine 04/22/20 Db Knight RN [address] [place] [address] Registered Nurse Family Medicine 10/09/24 Connie Lyles 10/09/24 documented as of this encounter
--- OUTSIDE RECORDS SUMMARY | 2024-12-14 17:44 | XMS_ITS | Encounter Summary ---
Author Organization [employer] Address [address] [facility] [address] [place] [address] Care Team Providers Care Delivery And Installation Subcontractor Name Role Phone Isa Lujan DO Primary Care Provider [phone] Knight RN Unavailable [phone] Connie Lyles Unavailable Encounter Details Date Type Department Care Team (Late st Contact Info) Description 05/22/2022 Orders Only [facility] [address] [place], [place] [phone] Isa Jacobson LPN Social History Tobacco Use [...] Description 01/29/2025 1:00 PM EST Office Visit [facility] [address] [place], [place] [phone] Geovanna Greer, OD [address] [place], [place] [phone] documented as of this encounter Visit Diagnoses Not on filedocumented in this encounter Additional Health Concerns Assessment Noted Time PHQ-9 Depression Total Score: 14 022 11:11 AM EST documented as of this encounter Care Teams Delivery And Installation Subcontractor Relationship Specialty Start Date End Date Isa Lujan DO [address] [place] [address] PCP - General Family Medicine 04/22/20 Db Knight RN [address] [place] [address] Registered Nurse Family Medicine 10/09/24 Connie Lyles 10/09/24 documented as of this encounter
--- OUTSIDE RECORDS SUMMARY | 2024-12-14 17:44 | XMS_ITS ---
Author Organization [employer] Address [address] [facility] [address] [place] [address] Care Team Providers Care Vice President Of Manufacturing Name Role Phone Isa Lujan DO Primary Care Provider [phone] Knight RN Unavailable [phone] Connie Lyles Unavailable CM Complex Status:Enrolled (Active) Start date:10/09/2024 Enrollment date:10/19/2024 Enrollment reason:ADT Feed Overview ADT-[facility] 10/09/24 Case Team Name Relationship Phone Db Knight RN(Responsible Staff) Registered Nurse [phone] Continued Care and Services Coordination
--- OUTSIDE RECORDS SUMMARY | 2024-12-14 17:44 | XMS_ITS ---
Author Organization [employer] Address [address] [place] [address] 7[address] [place] [address] Care Team Providers Care Client Development Consultant Name Role Phone Isa Lujan DO Primary Care Provider [phone] Knight RN Unavailable [phone] Connie Lyles Unavailable CHW Complex Status:Enrolled (Active) Start date:10/09/2024 Enrollment date:11/20/2024 Enrollment reason:ADT Feed Overview ADT-[facility] ED 10/09/24. Please outreach for enrollment. Case Team Name Relationship Phone Connie Lyles(Responsible Staff) [phone] Continued Care and Services Coordination
--- OUTSIDE RECORDS SUMMARY | 2024-12-14 17:44 | XMS_ITS | Encounter Summary ---
Author Organization [employer] Address [address] [facility] 7[address] [place] [address] Care Team Providers Care Rf Engineer Name Role Phone Isa Lujan DO Primary Care Provider [phone] Knight RN Unavailable [phone] Connie Lyles Unavailable Reason for Visit * Reason Onset Date Comments Hospital Follow-up 05/18/2024 Encounter Details Date Type Department Care Team (Late st Contact Info) Description 05/18/2024 Telephone [facility] [address] [place] [address] Isa Lujan DO [address] [place], [place] [phone] Hospital Follow-up Social History Tobacco Use Types [...] from pt requesting a HDF appt. [place] [facility] [place] Date of admission: 05/14/2024 Discharge date: 05/17/2024 Diagnosed: stone in the bladder *Send message to [facility] Clinical Care Coordinators documented in this encounter Plan of Treatment Upcoming Encounters Date Type Department Care Team ([facility] st Contact Info) Description 01/29/2025 1:00 PM EST Office Visit [facility] [address] [place] [address] Percy, Geovanna, OD [address] [facility] [place] [address] documented as of this encounter Visit Diagnoses Not on filedocumented in this encounter Additional Health Concerns Assessment Noted Time PHQ-9 Depression Total Score: 11 024 11:02 AM EDT documented as of this encounter Care Teams Rf Engineer Relationship Specialty Start Date End Date Isa Lujan DO [address] [place] [address] PCP - General Family Medicine 04/22/20 Db Knight, ANNA [address] [place] [phone] Registered Nurse Family Medicine 10/09/24 Connie Lyles 10/09/24 documented as of this encounter
--- OUTSIDE RECORDS SUMMARY | 2024-12-14 17:44 | XMS_ITS | Clinical Summary ---
Author Organization [employer] Address [address] [place] [address] [address] [place] [address] Care Team Providers Care Wood Fence Installer Name Role Phone Isa Lujan DO Primary Care Provider [phone] Knight RN Unavailable [phone] Connie Lyles Unavailable Allergies No known active allergies Medications senna (Senokot) 8.6 MG tabletIndications: Constipation, unspecified constipation type TAKE 1 TABLET BY MOUTH EVERY DAY NEEDED FOR CONSTIPATION 90 tablet 04/02/19 23 Active buPROPion XL (Wellbutrin XL) 150 MG 24 hr tablet Take 150 mg by mouth in the morning. 04/30/19 23 Active busPIRone (Buspar) 15 MG tablet 04/30/19 23 Active FLUoxetine (PROzac) 20 MG capsule 04/30/19 23 Active hydrOXYzine pamoate (Vistaril) 50 MG capsule 04/30/19 23 Active zolpidem (Ambien) 10 MG tablet Take 10 mg by mouth if needed at bedtime. 04/30/19 23 Active ibuprofen 600 MG tabletIndications: New onset of headaches TAKE 1 TABLET BY MOUTH EVERY 6 HOURS NEEDED FOR PAIN OR FOR HEADACHE 40 tablet 2 08/11/19 23 Active Diclofenac Sodium 1 % gel Apply 2 g topically if needed in the morning, at noon, in the evening, and at bedtime (pain). 150 g 3 09/07/19 24 Active albuterol (2.5 MG/3ML) 0.083% nebulizer solutionIndication s:Mild persistent asthma without complication Take 3 mL (2.5 mg) by nebulization every 4 (four) hours if needed for wheezing or shortness of breath. 75 mL 2 10/06/19 24 Active fluticasone (Flonase) 50 MCG/ACT nasal spray Administer 2 sprays into each nostril Once per day. Shake gently. Before first use, prime pump. After use, clean tip and replace cap. 18 g 10/06/19 24 Active Additional Information Patient not taking.Reported on 10/19/2024 ondansetron ODT (Zofran-ODT) 4 MG disintegrating tablet DISSOLVE 1 TABLET ON TONGUE EVERY 6 HOURS 11/17/19 24 Active Antacid/Antigas 400-400-40 MG/10ML oral suspension 11/17/19 24 Active D3 Super Strength 50 MCG (2000 UT) capsuleIndications :Vitamin D deficiency TAKE 1 CAPSULE BY MOUTH EVERY MORNING 90 capsule 3 04/04/19 25 Active Tirzepatide-Weight Management (Zepbound) 2.5 MG/0.5ML solution auto-injector Inject 0.5 mL (2.5 mg) under the skin 1 (one) time per week. 2 mL 3 04/14/19 Active Additional Information Patient not taking.Reported on 10/19/2024 docusate sodium (Colace) 100 MG capsule TAKE [...] DAY AT BEDTIME 180 tablet 3 05/03/19 25 Active nitroglycerin (Nitrostat) 0.4 MG SL tablet 05/10/19 25 Active omeprazole (PriLOSEC) [address] capsuleIndications :Chronic GERD Take 1 capsule (20 mg) by mouth before breakfast and before evening meal. take 1 capsule (20MG) by oral route every day before a meal 180 capsule 3 06/14/19 25 026 Active ferrous sulfate (Fe Tabs) 325 (65 Fe) MG EC tablet Take 1 tablet (325 mg) by mouth 3 (three) times a week. Do not crush, chew, or split. 36 tablet 3 06/29/19 25 026 Active loratadine (Claritin) 10 MG tablet TAKE 1 TABLET BY MOUTH EVERY DAY 90 tablet 1 08/03/19 25 Active famotidine (Pepcid) 20 MG tablet TAKE 2 TABLETS BY MOUTH EVERY DAY AT BEDTIME 180 tablet 1 10/28/19 25 Active Aspirin Low Dose 81 MG EC tablet Take 1 tablet (81 mg) by mouth Once per day. 30 tablet 3 11/02/19 25 Active atorvastatin (Lipitor) 40 MG tablet Take 1 tablet (40 mg) by mouth Once per day. 30 tablet 3 11/02/19 25 Active metoprolol succinate XL (Toprol-XL) 25 MG 24 hr tablet Take 1 tablet (25 mg) by mouth Once per day. 30 tablet 3 11/02/19 25 Active Arnuity Ellipta 100 MCG/ACT inhaler INHALE 1 PUFF BY MOUTH EVERY DAY RINSE MOUTH AFTER USING. 30 each 11/10/19 25 Active Active Problems Problem Noted Date Diagnosed Date [...] 72 hours (temperature should be less than 100 F without medication). Chronic tension headaches 05/26/2023 Prediabetes [...] Encounters Date Type Department Care Team Description 12/07/2024 Patient Outreach [address] [address] Isa Lujan, DO Care Management (C3CM- f/u call lv) 11/24/2024 Patient Outreach [address] [address] Isa Lujan DO Care Coordination (SDOH f/u) 11/24/2024 Patient Outreach [address] [address] Isa Lujan DO Care Management (C3CM- f/u call) 11/20/[address] [address] Isa Lujan DO Chart Prep 11/20/2024 Patient Outreach [address] [address] Isa Lujan DO 11/14/2024 Travel 11/13/2024 Patient Outreach [address] [address] Isa Lujan DO Care Management (C3CM- f/u call) 11/08/[address] [address] Isa Lujan DO 10/31/[address] [address] Isa Lujan DO 10/31/2024 Plan of Care Documentation [address] [address] 10/30/2024 Patient Outreach [address] [address] Isa Lujan DO Care Management ([facility]- f/u call) 10/26/[address] [address] Isa Lujan DO 10/24/[address] [address] Isa Lujan DO Zepbound RX 10/19/2024 Patient Outreach [address] [address] Isa Lujan DO 10/09/2024 Patient Outreach [address] [address] Isa Lujan DO Care Coordination (CM/CHW outreach) 10/09/2024 Patient Outreach [address] [address] Isa Lujan DO Care Coordination (CHW chart review) 10/09/2024 Patient Outreach [address] [address] Isa Lujan DO Care Management ([facility]- chart review) 10/09/2024 Patient Outreach [address] [address] Isa Lujan DO from Last 3 Months Immunizations Immunization Administration Dates Next Due Pneumococcal Polysaccharide PPSV23 [...] Date Recorded Patient Health Questionnaire-9 Score 10 10/19/2024 Patient Health Questionnaire-9 Score 10 10/19/2024 Last PHQ-9: Questionnaire Data Not on file 0 10/19/2024 Housing Stability Answer Date Recorded What is your housing situation today? I have cinthya diaz 11/20/[address] you li ve. Do you have problems with any of the following? None of the above 11/20/2024 Food Insecurity Answer Date Recorded Within the past 12 months, y ou worried that your food would run out before you got money to buy more: Often true 11/20/2024 Within the past 12 months,th e food you bought just didn't last and you didn't have enough money to get more: Often true 07/2024 Transportation Answer Date Recorded In the past 12 months, has l ack of transportation kept you from medical appts, meetings, work or from getting things needed for daily living? No 11/20/2024 Utilities Answer Date Recorded In the past 12 months, has t he electric, gas, oil or water company threatened to shut off services in your home? No 11/20/2024 Depression Answer Date Recorded Patient Health Questionnaire-2 Score 2 10/19/2024 Internet Access Answer Date Recorded Internet Access Q1 Yes 11/20/2024 Internet Access Q2 Not on file 11/20/2024 Comments No Sex and Gender Information Value [...] 70 06/13/2024 9:05 AM EDT Temperature 36.8 C (98.3 F) 06/13/2024 9:05 AM EDT Respiratory Rate 21 06/13/2024 9:05 AM EDT [...] Description 01/29/2025 1:00 PM EST Office Visit [facility] [address] [place] [address] Geovanna Greer, OD [address] [place] [address] Health Maintenance Due Date Last Done Comments CT Colonography 1970 Colonoscopy 1971 Colorectal Cancer Screening 1970 FIT DNA/Cologuard 1971 FIT 1971 FOBT 1970 Sigmoidoscopy 1971 Hepatitis B Vaccines (1 of 3 - 19+ 3-dose series) 07/30/1990 Pap Smear 07/30/1992 Cervical Cancer Screening 07/30/2001 HPV/Cotest 07/30/2001 Zoster Vaccines (1 of 2) 07/30/2021 Pneumococcal Vaccine: 50+ Years (2 of 2 - PCV) 02/04/2023 02/04/2022 COVID-19 Vaccine (3 - season) 2024 05/31/2020, 05/03/2020 Influenza Vaccine (#1) 2024 Depression Monitoring 04/18/2025 10/19/2024, 025 Mammogram 06/01/2025 06/01/2024, 05/27/2023 Alcohol/Substance Use Screening 06/13/2025 06/13/2024 Diabetes: Hemoglobin A1C 06/13/2025 025, 04/30/2023, 06/17/2022, Additional history exists Disability Screening 06/13/2025 06/13/2024 Tobacco Screening 06/13/2025 06/13/2024 SDOH Screening 11/20/2025 11/20/2024 Lipid Panel 06/13/2029 06/13/2024, 04/15, 02/18/2022 DTaP/Tdap/Td Vaccines (2 - Td or Tdap) 06/17/2032 06/17/2022 RSV Patients and Patients Aged 60 years or older (1 - 1-dose 75+ series) 07/30/2046 HIV Screening Completed 06/13/2024, 04/15, 02/18/2022 Hepatitis C Screening Completed 06/13/2024 , 04/30/2023, 02/18/2022 HIB Vaccines Aged Out No longer [...] patient's age to complete this topic Meningococcal B Vaccine Aged Out No l onger eligible based on patient's age to complete [...] Procedure Name Priority Date/Time Associated Diagnosis Comments HEPATITIS C AB W/REFL TO HCV RNA, QN, PCR Routine 06/13/2024 9:58 AM EDT Major depression, recurrent, chronic (CMS/HCC) Prediabetes Mild persistent asthma without complication Chronic allergic rhinitis Chronic gastroesophageal reflux disease Chronic constipation Chronic tension-type headache, not intractable Leukocytosis, unspecified type Chest pain, unspecified type Pelvic pain Healthcare maintenance HIV 1/2 ANTIGEN/ANTIBODY, FOURTH GENERATION W/RFL Routine 06/13/2024 9:58 AM EDT Major depression, recurrent, chronic (CMS/HCC) Prediabetes Mild persistent asthma without complication Chronic allergic rhinitis Chronic gastroesophageal reflux disease Chronic constipation Chronic tension-type headache, not intractable Leukocytosis, unspecified type Chest pain, unspecified type Pelvic pain Healthcare maintenance HEMOGLOBIN A1C Routine 06/13/2024 9:58 AM EDT Major depression, recurrent, chronic (CMS/HCC) Prediabetes Mild persistent asthma without complication Chronic allergic rhinitis Chronic gastroesophageal reflux disease Chronic constipation Chronic tension-type headache, not intractable Leukocytosis, unspecified type Chest pain, unspecified type Pelvic pain Healthcare maintenance LIPID PANEL, STANDARD Routine 06/13/2024 9:58 AM EDT Major depression, recurrent, chronic (CMS/HCC) Prediabetes Mild persistent asthma without complication Chronic allergic rhinitis Chronic gastroesophageal reflux disease Chronic constipation Chronic tension-type headache, not intractable Leukocytosis, unspecified type Chest pain, unspecified type Pelvic pain Healthcare maintenance BI MAMMOGRAM SCREENING TOMOSYNTHESIS BILATERAL Routine 06/01/2024 3:12 PM EDT from Last 3 Months or Most Recently Relevant to Health Maintenance Results * Hepatitis C Antibody with Reflex to HCV, RNA, Quantitative, Real-Time PCR (06/13/2024 9:58 AM EDT) Hepatitis C Antibody Nonreactive Nonreactive [facility] Comment:Antibodies to HCV no t detected; does not exclude early acuteHCV infection. Blood Venous blood specimen / Unknown 06/13/2024 9:58 AM EDT 06/13/2024 11:17 AM EDT Isa Lujan DO LAB BLOOD ORDERABLES Final R esult [facility] [address] [place] [address] [phone] * HIV-1/2 Antigen and Antibodies, Fourth Generation, with Reflexes (06/13/2024 9:58 AM EDT) HIV AB/AG Nonreactive Nonreactive [facility] Comment:HIV-1 p24 Ag and/or HIV-1/HIV-2 Ab not detected.A test result that is nonreactive does not exclude thepossibility of exposure to or infection with HIV-1 and/orHIV-2. Nonreactive results in this assay for individualswith prior exposure to HIV-1 and/or HIV-2 may be due toantigen and antibody levels that are below the limit ofdetection of this assay.The Hel[employer]ter HIV Ag/Ab Combo assay result andsupplemental assay results should be interpreted inconjunction with the patient's clinical presentation,history and other laboratory results. If the results areinconsistent with clinical evidence, additional testing issuggested to confirm the result. Blood Venous blood specimen / Unknown 06/13/2024 9:58 AM EDT 06/13/2024 11:17 AM EDT Isa aSntillanpatti DO LAB BLOOD ORDERABLES Final R esult Performing Organization Address [facility]/ZIP Co de Phone Number [facility] [address] [place] [phone] * (ABNORMAL) Hemoglobin A1c (06/13/2024 9:58 AM EDT) Hemoglobin A1c 6.2(H) <6.0 % [facility] Comment:Hemoglobin A1C Refer ence Range Adults: 4.8 - 6.0 % Non diabetic: < 6.0 % Goal: < 7.0 %Additional Action Suggested: > 8.0 %Note: Hemoglobin A1c results are invalid for patients with abnormal amounts of HbF. Blood transfusions may impact the HbA1c concentration in the patient sample. Estimated Average Glucose 131 mg/dL [facility] Comment:eAG = Estimated ave rage glucose which is %A1C expressed asaverage glucose, using the formula of the Z8Y-[id number] Glucose study (ADAG), Diabetes Care, Vol.31,#8,Sep. 2007 Blood Venous blood specimen / Unknown 06/13/2024 9:58 AM EDT 06/13/2024 11:21 AM EDT Isa Tai DO LAB BLOOD ORDERABLES Final R esult Performing Organization Address City/[facility]/ZIP Co de Phone Number [facility] [address] [place] [phone] [phone] * Lipid Panel, Standard (06/13/2024 9:58 AM EDT) Triglycerides 87 <150 mg/dL [facility] Comment:Desirable Triglyceri de: less than 150 mg/dLBorderline High Triglyceride 150-199 mg/dLHigh Triglyceride: 200-499 mg/dLVery High Triglyceride: greater than or equal to 5OO mg/dL Cholesterol 93 <200 mg/dL [facility] Comment:Desirable Cholestero l: less than 200 mg/dLBorderline High Cholesterol: 200-239 mg/dLHigh Cholesterol: greater than 239 mg/dL LDL Cholesterol Calculated 35 <100 mg/dL [facility] Comment:Desirable LDL: less than 100 mg/dLNear Optimal/Above Optimal LDL: 110- 129 mg/dLBorderline High LDL: 130-159 mg/dLHigh LDL: 160-189 mg/dLVery High LDL: greater than or equal to 190 mg/dL HDL Cholesterol 41 >40 mg/dL [facility] Comment:Desirable HDL: great er than 40 mg/dL Note: This HDL assay may give artificially low results in patients with liver disease. Blood Venous blood specimen / Unknown 06/13/2024 9:58 AM EDT 06/13/2024 11:17 AM EDT Isa Lujan DO LAB BLOOD ORDERABLES Final R esult [facility] [address] [place] [phone] * BI Mammogram Screening Tomosynthesis Bilateral (06/01/2024 3:12 PM EDT) Anatomical Region Laterality Modality Breast Bilateral Mammography 06/01/2024 3:12 PM EDT Narrative 06/10/2024 8:54 PM EDT [facility] [address] [place] [address] Mammography Report Signed Patient: Radha Tinajero MR#: [id number] : 1970 Acct:[id number] Age/Sex: 53 / F ADM Date: 06/01/24 Loc: HO.MAMMO Attending Dr: Isa Lujan DO Ordering Physician: Isa Lujan DO Results: 1N egative Date of Service: 06/01/24 Follow Up: 1 Year From Orig inal Mammogram Procedure(s): MM tomosynthesis screening BI Accession Number(s): [id number] cc: Isa Lujan DO EXAMINATION: MM SCREENING [...] Amalia Reese DO 06/10/2024 08:51 PM EDT RP Dictated By: Amalia Reese DO Signed By: <Electronically signed by Amalia Reese DO in OV> 06/10/242050 DD/ 1512 TD/TT: 06/01/24 1530 Employee Benefits Coordinator: Procedure Note Donotuseinterpreter, Image - 06/10/2024 [facility] [address] [place] [address] Mammography Report Signed Patient: Radha Tinajero#: [id number] : 1970Acct:[id number] Age/Sex: 53 / FADM Date: 06/01/24 Loc: HO.MAMMO Attending Dr: Isa Lujan DO Ordering Physician: Isa Lujanults: 1N egative Date of Service: 06/01/24Follow Up: 1 Year From Orig inal Mammogram Procedure(s): MM tomosynthesis screening BI Accession Number(s): [id number] cc: Isa Lujan DO EXAMINATION: MM SCREENING [...] Amalia Reese DO 06/10/2024 08:51 PM EDT RP Dictated By: Amalia Reese DO Signed By: <Electronically signed by Amalia Reese DO in OV> 06/10/242050 DD/ 1512 TD/TT: 06/01/24 1530 Employee Benefits Coordinator: Isa Lujan DO IMG BI PROCEDURES Edited Res ult - Final from Last 3 Months or Most Recently Relevant to Health Maintenance [place] [address] [place] [address] C3 Care Teams Wood Fence Installer Relationship Specialty Start Date End Date Isa Lujan DO [address] [place] [address] PCP - General Family Medicine 04/22/20 Db Knight, ANNA [address] [place] [phone] Registered Nurse Family Medicine 10/09/24 Connie Lyles 10/09/24
--- OUTSIDE RECORDS SUMMARY | 2024-12-14 17:44 | XMS_ITS | Encounter Summary ---
Author Organization [employer] Address [address] [facility] [address] [place] [address] Care Team Providers Care Account Manager Trainee Name Role Phone Isa Lujan DO Primary Care Provider [phone] Knight RN Unavailable [phone] Connie Lyles Unavailable Encounter Details Date Type Department Care Team (Late st Contact Info) Description 01/30/2022 Orders Only [facility] [address] [place] [address] Isa Jacobson LPN Social History Tobacco Use [...] Department Care Team (Late Contact Info) Description 01/29/2025 1:00 PM EST Office Visit [facility] [address] [place] [address] Percy, Geovanna, OD [address] [place] [address] documented as of this encounter Visit Diagnoses Not on filedocumented in this encounter Care Teams Account Manager Trainee Relationship Specialty Start Date End Date Isa Lujan DO [address] [place] [address] PCP - General Family Medicine 04/22/20 Db Knight, ANNA [address] [place] [phone] Registered Nurse Family Medicine 10/09/24 Connie Lyles 10/09/24 documented as of this encounter
== END 2024-12-14 15:54 | disposition home or self-care (01) ==
LOC: HO.HCS 14:50
PROVIDERS: PCP Family Medicine; Visit Provider Nurse Practitioner Family
DX: R07.2 Precordial pain (principal); R94.39 Abnormal result of other cardiovascular function study; R93.1 Abnormal findings on diagnostic imaging of heart and coronary circulation
CPT/HCPCS: 93010; 99214

== ENCOUNTER → 2024-12-14 14:50 | Outpatient (BNVA) | payer MEDICAID, SELFPAY | PROVIDERS: PCP Family Medicine; Visit Provider Nurse Practitioner Family | DX: R93.1 Abnormal findings on diagnostic imaging of heart and coronary circulation (principal); R94.39 Abnormal result of other cardiovascular function study; R07.2 Precordial pain; Z98.890 Other specified postprocedural states | CPT/HCPCS: 93005; 99212 ==

== ENCOUNTER 2024-12-19 14:20 | Outpatient (REF) | payer MEDICAID, SELFPAY ==
[2024-12-19 16:02] LABS: MANUAL DIFF FLAG NO
[2024-12-19 16:17] LABS: Hematocrit 37.6 % (37.0-47.0); Hemoglobin 12.0 g/dl (12.0-16.0); Imm Gran Abs Auto 0.04 X10*3/uL (0.00-0.03); Imm Gran Pct Auto 0.4 % (0.0-0.4); Lymphocytes Absolute Auto 2.9 X10*3/uL (1.2-4.9); Mean Corpuscular HGB Conc 31.9 g/dl (31.0-35.0); Mean Corpuscular Hemoglobin 24.7 pg (27.0-33.0); Mean Corpuscular Volume 77.5 fL (80.0-98.0); NRBC Abs Auto 0.000 X10*3/uL (0.0-0.012); NRBC Pct Auto 0.0 /100WBC (0.0-0.2); Platelet Count 294 X10*3/uL (160-400); Red Blood Count 4.85 X10*6/uL (4.20-5.50); White Blood Count 11.1 X10*3/uL (4.8-10.8)
[2024-12-19 16:21] LABS: INTERNATIONAL NORM RATIO 1.0 (0.9-1.1); Prothrombin Time 11.6 SEC (10.9-12.4)
[2024-12-19 16:34] LABS: Anion Gap 10 (12-20); Blood Urea Nitrogen 13 mg/dL (9-16); Calcium 9.0 mg/dL (8.4-10.2); Carbon Dioxide 27 mmol/L (22-29); Chloride 106 mmol/L (96-108); Estimated Glomerular Filt Rate > 60; Potassium 4.1 mmol/L (3.3-5.1); Sodium 139 mmol/L (135-145)
--- OUTSIDE RECORDS SUMMARY | 2024-12-19 17:23 | XMS_ITS | Encounter Summary ---
Author Organization [employer] Address [address] [facility] [address] [place] [address] Care Team Providers Care Insurance Instructor Name Role Phone Isa Lujan DO Primary Care Provider [phone] Knight RN Unavailable [phone] Connie Lyles Unavailable Encounter Details Date Type Department Care Team (Late st Contact Info) Description 04/22/2022 Orders Only [facility] [address] [place], [place] [phone] Isa Jacobson LPN Social History Tobacco Use [...] Description 01/29/2025 1:00 PM EST Office Visit [facility] [address] [place], [place] [phone] Geovanna Greer, OD [address] [place], [place] [phone] documented as of this encounter Visit Diagnoses Not on filedocumented in this encounter Additional Health Concerns Assessment Noted Time PHQ-9 Depression Total Score: 14 022 11:11 AM EST documented as of this encounter Care Teams Insurance Instructor Relationship Specialty Start Date End Date Isa Lujan DO [address] [place] [address] PCP - General Family Medicine 04/22/20 Db Knight RN [address] [place] [address] Registered Nurse Family Medicine 10/09/24 Connie Lyles 10/09/24 documented as of this encounter
--- OUTSIDE RECORDS SUMMARY | 2024-12-19 17:23 | XMS_ITS | Encounter Summary ---
Author Organization [employer] Address [address] [facility] 7t [place] [address] Care Team Providers Care Sensitized Paper Tester Name Role Phone Isa Lujan DO Primary Care Provider + [phone] Knight RN Unavailable [phone] Connie Lyles Unavailable Encounter Details Date Type Department Care Team (Late st Contact Info) Description 12/19/2024 Orders Only GENERIC EXTERNAL DATA DEPARTMENT Provider, Generic External Data Social History Tobacco Use Types Packs/Day Years [...] Description 01/29/2025 1:00 PM EST Office Visit [facility] [address] [place], [place] [phone] Percy, Geovanna, OD [address] [place] [address] documented as of this encounter Procedures Procedure Name Priority Date/Time Associated Diagnosis Comments CBC WITH AUTO DIFFERENTIAL Routine 12/19/2024 2:26 PM EST PROTHROMBIN TIME-INR Routine 12/19/2024 2:26 PM EST BASIC METABOLIC PANEL Routine 12/19/2024 2:26 PM EST documented in this encounter Results * (ABNORMAL) Basic Metabolic Panel (12/19/2024 2:26 PM EST) Sodium 139 135 - 145 mmol/L [facility] Potassium 4.1 3.3 - 5.1 mmol/L [facility] Chloride 106 96 - 108 mmol/L [facility] Carbon Dioxide 27 22 - 29 mmol/L [facility] Anion Gap 10(L) 12 - 20 [facility] Urea Nitrogen (BUN) 13 9 - 16 mg/dL [facility] Creatinine, Serum 0.90 0.5 - 1.4 mg/dL [facility] Estimated Glomerular Filt Rate >60 [facility] Comment:Chronic Kidney Disea se: Estimated GFR < 60 mL/min/1.34f4Vdnard Kidney Disease: Estimated GFR < 15 mL/min/1.73m2 Glucose 115 60 - 115 mg/dL [facility] Calcium 9.0 8.4 - 10.2 mg/dL [facility] 12/19/2024 2:26 PM EST 12/19/2024 3:55 PM EST Generic External Data Provider LAB BLOOD ORDERAB LES Final Result Performing Organization Address City/[facility]/ZIP Co de Phone Number [facility] [address] [place] [address] [phone] * Prothrombin Time-INR (12/19/2024 2:26 PM EST) Prothrombin Time 11.6 10.9 - 12.4 SEC [facility] INTERNATIONAL NORM RATIO 1.0 0.9 - 1.1 [facility] Comment:INTERNATIONAL NORMAL IZED RATIO (INR) REFERENCE RANGES Reference RangeFor patients not on anticoagulant therapy: 0.9 - 1.1INR ranges for oral anticoagulanttherapy:For prevention and treatment of venous thrombosis and pulmonary embolism: 2.0 - 3.0For acute myocardial infarction with aspirin therapy: 2.0 - 3.0For acute myocardial infarction without aspirin therapy: 3.0 - 4.0For patients with mechanical prosthetic heart valves: 2.5 - 3.5 12/19/2024 2:26 PM EST 12/19/2024 3:55 PM EST 248 [employer] External Data Provider LAB BLOOD ORDERAB LES Final Result Performing Organization Address City/[facility]/ZIP Co de Phone Number [facility] [address] [place] [phone] * (ABNORMAL) CBC auto differential (12/19/2024 2:26 PM EST) White Blood Count 11.1(H) 4.8 - 10.8 X10*3/uL [facility] Red Blood Count 4.85 4.20 - 5.50 X10*6/uL [facility] Hemoglobin 12.0 12.0 - 16.0 g/dl [facility] Hematocrit 37.6 37.0 - 47.0 % [facility] Mean Corpuscular Volume 77.5(L) 80.0 - 98.0 fL [facility] Mean Corpuscular Hemoglobin 24.7(L) 27.0 - 33.0 pg [facility] Mean Corpuscular HGB Conc 31.9 31.0 - 35.0 g/dl [facility] Red Cell Distribution Width 14.4 11.0 - 16.0 % [facility] Platelet Count 294 160 - 400 X10*3/uL [facility] Mean Platelet Volume 10.8 9.4 - 12.3 fL [facility] Neutrophils Percent Auto 63.5 45 - 73 % [facility] Imm Gran Pct Auto 0.4 0.0 - 0.4 % [facility] Lymphocytes Percent Auto 26.0 20 - 40 % [facility] Monocytes Percent Auto 6.5 2 - 11 % [facility] Eosinophils Percent Auto 3.0 0 - 4 % [facility] Basophils Percent Auto 0.6 0 - 2 % [facility] NRBC Pct Auto 0.0 0.0 - 0.2 /100WBC [facility] Neutrophils Absolute Auto 7.1 2.0 - 8.3 x10*3/uL [facility] Imm Gran Abs Auto 0.04(H) 0.00 - 0.03 X10*3/uL [facility] Lymphocytes Absolute Auto 2.9 1.2 - 4.9 X10*3/uL [facility] Monocytes Absolute Auto 0.7 0.1 - 1.2 X10*3/uL [facility] Eosinophils Absolute Auto 0.3 0.0 - 0.4 X10*3/uL [facility] Basophils Absolute Auto 0.1 0.0 - 0.2 X10*3/uL [facility] NRBC Abs Auto 0.000 0.0 - 0.012 X10*3/uL [facility] 12/19/2024 2:26 PM EST 12/19/2024 3:55 PM EST us Generic External Data Provider LAB BLOOD ORDERAB LES Final Result [facility] [address] [place] [phone] documented in this encounter Visit Diagnoses Not on filedocumented in this encounter Additional Health Concerns Assessment Noted Time PHQ-9 Depression Total Score: 10 025 1:49 PM EDT documented as of this encounter Care Teams Sensitized Paper Tester Relationship Specialty Start Date End Date Isa Lujan DO [address] [place] [address] PCP - General Family Medicine 04/22/20 Db Knight, ANNA [address] [place] [phone] Registered Nurse Family Medicine 10/09/24 Connie Lyles 10/09/24 documented as of this encounter
--- OUTSIDE RECORDS SUMMARY | 2024-12-19 17:23 | XMS_ITS | Encounter Summary ---
Author Organization [employer] Address [address] [facility] 7t [place] [address] Care Team Providers Care Automatic Bandsaw Tender Name Role Phone Isa Lujan DO Primary Care Provider [phone] Knight RN Unavailable [phone] Connie Lyles Unavailable Encounter Details Date Type Department Care Team (Late st Contact Info) Description 05/22/2022 Orders Only [facility]ED[facility] [address] [place], [place] [phone] Isa Jacobson LPN Social History Tobacco Use [...] Description 01/29/2025 1:00 PM EST Office Visit [facility] [address] [place], [place] [phone] Geovanna Greer, OD [address] [place], [place] [phone] documented as of this encounter Visit Diagnoses Not on filedocumented in this encounter Additional Health Concerns Assessment Noted Time PHQ-9 Depression Total Score: 14 022 11:11 AM EST documented as of this encounter Care Teams Automatic Bandsaw Tender Relationship Specialty Start Date End Date Isa Lujan DO [address] [place] [address] PCP - General Family Medicine 04/22/20 Db Knight RN [address] [place] [address] Registered Nurse Family Medicine 10/09/24 Connie Lyles 10/09/24 documented as of this encounter
--- OUTSIDE RECORDS SUMMARY | 2024-12-19 17:23 | XMS_ITS | Encounter Summary ---
Author Organization [employer] Address [address] [facility] 7t [place] [address] Care Team Providers Care Breeder Service Technician Name Role Phone Isa Lujan DO Primary Care Provider [phone] Knight RN Unavailable [phone] Connie Lyles Unavailable Encounter Details Date Type Department Care Team (Late st Contact Info) Description 01/30/2022 Orders Only [facility] PED[facility] [address] [place] [address] Isa Jacobson LPN Social History Tobacco Use [...] Description 01/29/2025 1:00 PM EST Office Visit [facility] [address] [place] [address] Percy, Geovanna, OD [address] [place] [address] documented as of this encounter Visit Diagnoses Not on filedocumented in this encounter Care Teams Breeder Service Technician Relationship Specialty Start Date End Date Isa Lujan DO [address] [place] [address] PCP - General Family Medicine 04/22/20 Db Knight, ANNA [address] [place] [phone] Registered Nurse Family Medicine 10/09/24 Connie Lyles 10/09/24 documented as of this encounter
--- OUTSIDE RECORDS SUMMARY | 2024-12-19 17:23 | XMS_ITS | Encounter Summary ---
Author Organization [employer] Address [address] [facility] [address]t [place] [address] Care Team Providers Care Pe Electrical Engineer Name Role Phone Isa Lujan DO Primary Care Provider [phone] Knight RN Unavailable [phone] Connie Lyles Unavailable Reason for Visit * Reason Onset Date Comments Hospital Follow-up 05/18/2024 Encounter Details Date Type Department Care Team (Late st Contact Info) Description 05/18/2024 Telephone [facility] MEDIC[facility] [address] [place] [address] Isa Lujan DO [address] [place], [place] [phone] Hospital Follow-up Social History Tobacco Use Types [...] from pt requesting a HDF appt. Hospital: [facility] Date of admission: 05/14/2024 Discharge date: 05/17/2024 Diagnosed: stone in the bladder *Send message to [place] Clinical Care Coordinators documented in this encounter Plan of Treatment Upcoming Encounters Date Type Department Care Team ([facility] st Contact Info) Description 01/29/2025 1:00 PM EST Office Visit [facility] [address] [place] [address] Percy, Geovanna, OD [address] [facility] [place] [address] documented as of this encounter Visit Diagnoses Not on filedocumented in this encounter Additional Health Concerns Assessment Noted Time PHQ-9 Depression Total Score: 11 024 11:02 AM EDT documented as of this encounter Care Teams Pe Electrical Engineer Relationship Specialty Start Date End Date Isa Lujan DO [address] [place] [address] PCP - General Family Medicine 04/22/20 Db Knight, ANNA [address] [place] [phone] Registered Nurse Family Medicine 10/09/24 Connie Lyles 10/09/24 documented as of this encounter
--- OUTSIDE RECORDS SUMMARY | 2024-12-19 17:23 | XMS_ITS ---
Author Organization [employer] Address [address] [facility] 7t [place] [address] Care Team Providers Care Last Code Striper Name Role Phone Isa Lujan DO Primary Care Provider [phone] Knight RN Unavailable [phone] Connie Lyles Unavailable CM Complex Status:Enrolled (Active) Start date:10/09/2024 Enrollment date:10/19/2024 Enrollment reason:ADT Feed Overview [facility] ED 10/09/24 Case Team Name Relationship Phone Db Knight RN(Responsible Staff) Registered Nurse [phone] Continued Care and Services Coordination
--- OUTSIDE RECORDS SUMMARY | 2024-12-19 17:23 | XMS_ITS | Clinical Summary ---
Author Organization [employer] Address [address] [place] [address] 7t [place] [address] Care Team Providers Care Aircraft Motor Mechanic Name Role Phone Isa Lujan DO Primary Care Provider [phone] Knight RN Unavailable [phone] Connie Lyles Unavailable Allergies No known [...] Encounters Date Type Department Care Team Description 12/19/2024 Orders Only GENERIC EXTERNAL DATA DEPARTMENT Provider, Generic External Data 12/07/2024 Patient Outreach [facility] MED[facility] [address] [place] [phone] Isa Lujan DO Care Management (C3CM- f/u call lvm) 11/24/2024 Patient Outreach [facility] [address] [place] [phone] Isa Lujan DO Care Coordination (SDOH f/u) 11/24/2024 Patient Outreach [facility] [address] [place] [phone] Isa Lujan DO Care Management (C3CM- f/u call) 11/20/2024 Telephone [facility] MED[facility] [address] [place] [phone] Isa Lujan DO Chart Prep 11/20/2024 Patient Outreach [facility] [address] [place] [phone] Isa Lujan DO 11/14/2024 Travel 11/13/2024 Patient Outreach [facility] [address] [place] [phone] Isa Lujan DO Care Management (C3CM- f/u call) 11/08/2024 Refill [facility] [address] [place] [phone] Isa Lujan DO 10/31/2024 Refill [facility] [address] [place] [phone] Isa Lujan DO 10/31/2024 Plan of Care Documentation [address] [address] 10/30/2024 Patient Outreach [address] [address] Isa Lujan DO Care Management ([facility]- f/u call) 10/26/[address] [address] Isa Lujan DO 10/24/[address] [address] Isa Lujan DO [employer] [facility] 10/19/2024 Patient Outreach [address] [address] Isa Lujan DO 10/09/2024 Patient Outreach [address] [address] Isa Lujan DO Care Coordination (CM/CHW outreach) 10/09/2024 Patient Outreach [address] [address] Isa Lujan DO Care Coordination (CHW chart review) 10/09/2024 Patient Outreach [address] [address] Isa Lujan DO Care Management ([facility]- chart review) 10/09/2024 Patient Outreach [address] [address] Isa Lujan DO from Last 3 Months [...] Description 01/29/2025 1:00 PM EST Office Visit [facility] [address] [place] [address] Percy, Geovanna, OD [address] [place] [address] Health Maintenance Due Date Last Done Comments [...] Procedure Name Priority Date/Time Associated Diagnosis Comments BASIC METABOLIC PANEL Routine 12/19/2024 2:26 PM EST PROTHROMBIN TIME-INR Routine 12/19/2024 2:26 PM EST CBC WITH AUTO DIFFERENTIAL Routine 12/19/2024 2:26 PM EST HEPATITIS C AB W/REFL TO [...] Recently Relevant to Health Maintenance Results * (ABNORMAL) CBC auto differential (12/19/2024 2:26 PM EST) White Blood Count 11.1(H) 4.8 - 10.8 X10*3/uL [facility] Red Blood Count 4.85 4.20 - 5.50 X10*6/uL [facility] Hemoglobin 12.0 12.0 - 16.0 g/dl [facility] Hematocrit 37.6 37.0 - 47.0 % [facility] Mean Corpuscular Volume 77.5(L) 80.0 - 98.0 fL [facility] Mean Corpuscular Hemoglobin 24.7(L) 27.0 - 33.0 pg [facility] Mean Corpuscular HGB Conc 31.9 31.0 - 35.0 g/dl [facility] Red Cell Distribution Width 14.4 11.0 - 16.0 % [facility] Platelet Count 294 160 - 400 X10*3/uL [facility] Mean Platelet Volume 10.8 9.4 - 12.3 fL [facility] Neutrophils Percent Auto 63.5 45 - 73 % [facility] Imm Gran Pct Auto 0.4 0.0 - 0.4 % [facility] Lymphocytes Percent Auto 26.0 20 - 40 % [facility] Monocytes Percent Auto 6.5 2 - 11 % [facility] Eosinophils Percent Auto 3.0 0 - 4 % [facility] Basophils Percent Auto 0.6 0 - 2 % [facility] NRBC Pct Auto 0.0 0.0 - 0.2 /100WBC [facility] Neutrophils Absolute Auto 7.1 2.0 - 8.3 x10*3/uL [facility] Imm Gran Abs Auto 0.04(H) 0.00 - 0.03 X10*3/uL [facility] Lymphocytes Absolute Auto 2.9 1.2 - 4.9 X10*3/uL [facility] Monocytes Absolute Auto 0.7 0.1 - 1.2 X10*3/uL [facility] Eosinophils Absolute Auto 0.3 0.0 - 0.4 X10*3/uL [facility] Basophils Absolute Auto 0.1 0.0 - 0.2 X10*3/uL [facility] NRBC Abs Auto 0.000 0.0 - 0.012 X10*3/uL [facility] 12/19/2024 2:26 PM EST 12/19/2024 3:55 PM EST us Generic External Data Provider LAB BLOOD ORDERAB LES Final Result Performing Organization Address City/State/[facility] Co de Phone Number [facility] [address] [place] [phone] * Prothrombin Time-INR (12/19/2024 2:26 PM EST) Prothrombin Time 11.6 10.9 - 12.4 SEC [facility] INTERNATIONAL NORM RATIO 1.0 0.9 - 1.1 [facility] Comment:INTERNATIONAL NORMAL IZED RATIO (INR) REFERENCE [...] ORDERAB LES Final Result Performing Organization Address [facility] de Phone Number [facility] [address] [place] [phone] * (ABNORMAL) Basic Metabolic Panel (12/19/2024 2:26 PM EST) Sodium 139 135 - 145 mmol/L [facility] Potassium 4.1 3.3 - 5.1 mmol/L [facility] Chloride 106 96 - 108 mmol/L [facility] Carbon Dioxide 27 22 - 29 mmol/L [facility] Anion Gap 10(L) 12 - 20 [facility] Urea Nitrogen (BUN) 13 9 - 16 mg/dL [facility] Creatinine, Serum 0.90 0.5 - 1.4 mg/dL [facility] Estimated Glomerular Filt Rate >60 [facility] Comment:Chronic Kidney Disea se: Estimated GFR < 60 mL/min/1.48q2Nhbzom Kidney Disease: Estimated GFR < 15 mL/min/1.73m2 Glucose 115 60 - 115 mg/dL [facility] Calcium 9.0 8.4 - 10.2 mg/dL [facility] 12/19/2024 2:26 PM EST 12/19/2024 3:55 PM EST Generic External Data Provider LAB BLOOD ORDERAB LES Final Result Performing Organization Address [facility] de Phone Number [facility] [address] [place] [phone] * Hepatitis C Antibody with Reflex to HCV, RNA, Quantitative, Real-Time PCR (06/13/2024 9:58 AM EDT) [facility] Hepatitis C Antibody Nonreactive Nonreactive [facility] Comment:Antibodies to HCV no t detected; does not exclude early acuteHCV infection. Blood Venous blood specimen / Unknown 06/13/2024 9:58 AM EDT 06/13/2024 11:17 AM EDT Isa Tai LAB BLOOD ORDERABLES Final R esult Performing Organization Address City/[facility]/ZIP Co de Phone Number [facility] [address] [place] [address] [phone] * HIV-1/2 Antigen and Antibodies, Fourth Generation, with Reflexes (06/13/2024 9:58 AM EDT) [facility] HIV AB/AG Nonreactive Nonreactive [facility] Comment:HIV-1 p24 Ag and/or HIV-1/HIV-2 Ab not detected.A test result that is nonreactive does not exclude thepossibility of exposure to or infection with HIV-1 and/orHIV-2. Nonreactive results in this assay for individualswith prior exposure to HIV-1 and/or HIV-2 may be due toantigen and antibody levels that are below the limit ofdetection of this assay.The [facility] HIV Ag/Ab Combo assay result andsupplemental assay results should be interpreted inconjunction with the patient's clinical presentation,history and other laboratory results. If the results areinconsistent with clinical evidence, additional testing issuggested to confirm the result. Blood Venous blood specimen / Unknown 06/13/2024 9:58 AM EDT 06/13/2024 11:17 AM EDT Isa Tai LAB BLOOD ORDERABLES Final R esult Performing Organization Address City/[facility]/ZIP Co de Phone Number [facility] [address] [place] [address] [phone] * (ABNORMAL) Hemoglobin A1c (06/13/2024 9:58 AM EDT) Hemoglobin A1c 6.2(H) <6.0 % [facility] Comment:Hemoglobin A1C Refer ence Range Adults: 4.8 - 6.0 % Non diabetic: < 6.0 % Goal: < 7.0 %Additional Action Suggested: > 8.0 %Note: Hemoglobin A1c results are invalid for patients with abnormal amounts of HbF. Blood transfusions may impact the HbA1c concentration in the patient sample. Estimated Average Glucose 131 mg/dL [facility] Comment:eAG = Estimated ave rage glucose which is %A1C expressed asaverage glucose, using the formula of the Y6K-GeoobicLhldzmi Glucose study (ADAG), Diabetes Care, Vol.31,#8,Sep. 2007 Blood Venous blood specimen / Unknown 06/13/2024 9:58 AM EDT 06/13/2024 11:21 AM EDT us Isa Lujan DO LAB BLOOD ORDERABLES Final R esult [facility] [address] [place] [phone] * Lipid Panel, Standard (06/13/2024 9:58 AM EDT) Triglycerides 87 <150 mg/dL [facility] Comment:Desirable Triglyceri de: less than 150 mg/dLBorderline High Triglyceride 150-199 mg/dLHigh Triglyceride: 200-499 mg/dLVery High Triglyceride: greater than or equal to 5OO mg/dL Cholesterol 93 <200 mg/dL [facility] Comment:Desirable Cholestero l: less than 200 mg/dLBorderline High Cholesterol: 200-239 mg/dLHigh Cholesterol: greater than 239 mg/dL LDL Cholesterol Calculated 35 <100 mg/dL [facility] Comment:Desirable LDL: less than 100 mg/dLNear Optimal/Above Optimal LDL: 110- 129 mg/dLBorderline High LDL: 130-159 mg/dLHigh LDL: 160-189 mg/dLVery High LDL: greater than or equal to 190 mg/dL HDL Cholesterol 41 >40 mg/dL [facility] Comment:Desirable HDL: great er than 40 mg/dL Note: This HDL assay may give artificially low results in patients with liver disease. Blood Venous blood specimen / Unknown 06/13/2024 9:58 AM EDT 06/13/2024 11:17 AM EDT Isa Lujan DO LAB BLOOD ORDERABLES Final R esult [facility] [address] [place] [phone] * BI Mammogram Screening Tomosynthesis Bilateral (06/01/2024 3:12 PM EDT) Anatomical Region Laterality Modality Breast Bilateral Mammography 06/01/2024 3:12 PM EDT Narrative 06/10/2024 8:54 PM EDT [address] [place] [address] Mammography Report Signed Patient: Radha Tinajero MR#: [id number] : 1970 Acct:[id number] Age/Sex: 53 / F ADM Date: 06/01/24 Loc: HO.MAMMO Attending Dr: Isa Lujan DO Ordering Physician: Isa Lujan DO Results: 1N egative Date of Service: 06/01/24 Follow Up: 1 Year From [facility] Mammogram Procedure(s): MM tomosynthesis screening BI Accession Number(s): [id number] cc: Isa Lujan DO EXAMINATION: MM SCREENING [...] Amalia Reese DO in OV> 06/10/242050 DD/ 151 TD/TT: 06/01/24 1530 Stockroom Coordinator: Procedure Note Donotuseinterpreter, Image - 06/10/2024 [facility] [address] [place], [place] [address] Mammography Report Signed Patient: Radha TinajeroMR#: [id number] : 1970Acct:[id number] Age/Sex: 53 / FADM Date: 06/01/24 Loc: HO.MAMMO Attending Dr: Isa Lujna DO Ordering Physician: Isa Lujanults: 1N egative Date of Service: 06/01/24Follow Up: 1 Year From Orig inal Mammogram Procedure(s): MM tomosynthesis screening BI Accession Number(s): [id number] cc: Isa Lujan DO EXAMINATION: MM SCREENING [...] Amalia Reese DO in OV> 06/10/242050 DD/ 151 TD/TT: 06/01/24 1530 Stockroom Coordinator: Isa Lujan DO IMG BI PROCEDURES Edited Res ult - Final from Last 3 Months or Most Recently Relevant to Health Maintenance Insurance [address] [address] C3 Care Teams Aircraft Motor Mechanic Relationship Specialty Start Date End Date Isa Lujan DO [address] [place] [address] PCP - General Family Medicine 04/22/20 Db Knight, ANNA [address] [place] [address] Registered Nurse Family Medicine 10/09/24 Connie Lyles 10/09/24
--- OUTSIDE RECORDS SUMMARY | 2024-12-19 17:23 | XMS_ITS ---
Author Organization [employer] Address [address] [place] [address] [address] [place] [address] Care Team Providers Care Hide Cleaner Name Role Phone Isa Lujan DO Primary Care Provider [phone] Knight RN Unavailable [phone] Connie Lyles Unavailable CHW Complex Status:Enrolled (Active) Start date:10/09/2024 Enrollment date:11/20/2024 Enrollment reason:ADT Feed Overview [facility] ED 10/09/24. Please outreach for enrollment. Case Team Name Relationship Phone Connie Lyles(Responsible Staff) [phone] Continued Care and Services Coordination
--- OUTSIDE RECORDS SUMMARY | 2024-12-19 17:23 | XMS_ITS | Encounter Summary ---
Author Organization [employer] Address [address] [facility] [address] [place] [address] Care Team Providers Care Music Sound Light Technician Name Role Phone Isa Lujan DO Primary Care Provider + [phone] Knight RN Unavailable [phone] Connie Lyles Unavailable Reason for Visit * Reason Comments Med Refill Encounter Details Date Type Department Care Team (Late st Contact Info) Description 01/25/2023 Refill [facility] [address] [place] [address] Isa Lujan DO [address] [place] [address] Mild persistent asthma without complication Social History [...] Description 01/29/2025 1:00 PM EST Office Visit [facility] [address] [place], [place] [id number] Geovanna Greer, OD [address] [place] [address] documented as of this encounter Visit Diagnoses Diagnosis Mild persistent asthma without complication documented in this encounter Additional Health Concerns Assessment Noted Time PHQ-9 Depression Total Score: 10 023 10:47 AM EDT documented as of this encounter Care Teams Music Sound Light Technician Relationship Specialty Start Date End Date Isa Lujan DO [address] [place] [address] PCP - General Family Medicine 04/22/20 Db Knight, RN [address] [place] [address] Registered Nurse Family Medicine 10/09/24 Connie Lyles 10/09/24 documented as of this encounter
== END 2024-12-19 14:21 | disposition home or self-care (01) ==
LOC: HO.HHCL 14:20
PROVIDERS: Internal Medicine; PCP Family Medicine; Visit Provider Nurse Practitioner Family
DX: R07.2 Precordial pain (principal); R93.1 Abnormal findings on diagnostic imaging of heart and coronary circulation; R94.39 Abnormal result of other cardiovascular function study
CPT/HCPCS: 36415; 80048; 85025; 85610

== ENCOUNTER → 2025-01-02 23:59 | Outpatient (BNV) | payer MEDICAID, SELFPAY | PROVIDERS: PCP Family Medicine; Visit Provider Internal Medicine Cardiovascular Disease | DX: I25.118 Atherosclerotic heart disease of native coronary artery with other forms of angina pectoris (principal) | CPT/HCPCS: 93458; 99152 ==

== ENCOUNTER 2025-02-13 14:18 | Outpatient (AMB) | payer MEDICAID, SELFPAY ==
[2025-02-13 14:23] VITALS: BP 108/72; PULSE 76; BMI 36.6
--- NOTE | 2025-02-13 14:23 | MHC.OFFVIS ---
Vital Signs 02/13/25 14:23 Height 5 ft 6 in Weight 226 lb 10.163 oz BMI 36.6 BP 108/72 Blood Pressure Location Lt brachial Position Sitting Pulse 76 Pulse Source Pulse Oximeter Intake Visit Reasons: F/U after Cath Community Artist Required: Yes Community Artist Language: Waiver Analyst Name: michelle baker [id number] Commercial Credit Specialist: Commercial Credit Specialist Present Allergies No Known Allergies Allergy (Verified 02/13/25 14:26) Medication List - Last Reconciled 02/15/25 by SELENA Chapman alum-mag hydroxide-simeth 200-200-20 mg/5 mL (Maalox Advanced) 10 mL PO Q6H PRN amitriptyline 10 mg PO BEDTIME amitriptyline 50 mg PO BEDTIME aspirin 81 mg PO DAILY atorvastatin 40 mg PO DAILY bupropion HCl XL 150 mg PO QAM cholecalciferol (vitamin D3) (Vitamin D3) 50 mcg PO QAM docusate sodium 100 mg PO BEDTIME famotidine (Pepcid) 20 mg PO BID PRN fluoxetine 40 mg PO QAM fluticasone propionate 50 mcg/actuation 2 sprays intranasal DAILY fluticasone propionate 220 mcg/actuation (Flovent HFA) 1 puff inhalation BID loratadine 10 mg PO DAILY lorazepam 1 mg PO BEDTIME PRN meclizine 25 mg PO TID metoprolol succinate ER 25 mg PO DAILY nitroglycerin mg sublingual ondansetron 4 mg PO Q6H pantoprazole 40 mg PO DAILY sennosides (Natural Senna Laxative) 17.2 mg (2 x 8.6 mg) PO BEDTIME zolpidem 10 mg PO BEDTIME PRN HPI HPI F/U after Cath: Details: Radha is a 54-year-old female with past medical history of obesity, hyperlipidemia, prediabetes who had echocardiogram showing low normal EF and regional wall motion abnormality. A nuclear stress test showed a small reversible defect. On follow-up visit here a cardiac catheterization was ordered last spring and she did not follow through with it. On last visit she reported episodes of chest discomfort and cardiac cath again ordered and done: showing normal coronary arteries. Today she reports that she has discomfort in her mid chest when she is upset and at times with exertion. She still has shortness of breath with stair climbing and other physical activity. She is noticing heart palpitations at times but not as much as what she previously reported. No lightheadedness, presyncope, syncope, falls. Taking meds as directed. Right radial cath site is feeling good. Significant other is present. Certified revenue stamper used. [facility] Medical History (Updated 12/14/24 @ 15:47 by Danni Silva NP-C) Pre-diabetes Surgical History (Updated 02/13/25 @ 14:49 by Danni Silva NP-C) History of cardiac cath Family History Mother Diabetes 1.5, managed as type 2 HTN (hypertension) Heart disease High cholesterol Father No problems noted. Sister HTN (hypertension) Diabetes 1.5, managed as type 2 High cholesterol Sister Diabetes 1.5, managed as type 2 HTN (hypertension) High cholesterol Heart disease Social History Household Members: Family and Children Alcohol intake: current Alcohol intake frequency: holidays/special occasions only Patient Tobacco Use Status: Never used Tobacco Review of Systems ENT Reports dizziness Card Denies chest pain, Denies chest pain at rest, Denies chest pain with activity, Denies rapid heart rate, Denies pedal edema, Denies edema, Denies leg edema, Denies lightheadedness, Denies palpitations, Denies dyspnea, Denies dyspnea on exertion and Denies orthopnea Resp Denies cough, Denies dyspnea and Denies dyspnea on exertion GI Denies hematochezia and Denies change in stool character Musc Denies abnormal gait, Reports limited range of motion, Reports muscle cramps, Denies muscle weakness, Denies numbness, Denies radiating pain into limb, Denies stiffness and Denies tingling Neuro Denies abnormal gait, Reports dizziness, Denies numbness and Denies tingling Endo Denies palpitations Physical Exam Vital Signs: Last Vital Signs Pulse 76 02/13/25 14:23 BP 108/72 02/13/25 14:23 BMI result Body Mass Index 36.6 Assessment & Plan Assessment & Plan (1) Precordial chest pain: Code(s): R07.2 - Precordial pain Category: Medical Plan: Reports current chest discomfort with emotional upset/stress and exertion. Prior [facility] evaluation for abdominal area discomfort 04/2024 with cardiac testing including normal troponin, EKG. She did have echocardiogram showing EF 50-55%, hypokinetic basal to mid lateral wall. A nuclear stress test was done 05/09/2024 showing a reversible perfusion defect in the apical to mid anterior wall septal wall and part of apex, suggestive of ischemia. Cardiac catheterization done 01/02/25 showing normal coronary arteries. Results reviewed with her in detail. Her chest discomfort is noncardiac. Informed she can stop aspirin unless she takes it for noncardiac reasons. Continue atorvastatin and metoprolol. (2) Abnormal stress test: Code(s): R94.39 - Abnormal result of other cardiovascular function study Category: Medical Plan: As above - false positive (3) Abnormal echocardiogram: Code(s): R93.1 - Abnormal findings on diagnostic imaging of heart and coronary circulation Category: Medical Plan: Last echo did show low normal EF, regional wall motion abnromality. Could be false reading. Will plan for a recheck of echo prior to a follow up in 1 year. (4) History of cardiac cath: Comment: 01/02/25 normal Code(s): Z98.890 - Other specified postprocedural states Category: Surgical Plan: right radial cath site well healed. Orders: Orders CA echo transthoracic complete 11 Months R93.1 - Abnormal findings on diagnostic imaging of heart and coronary circulation Coding Level of Care Code Est Pt Level 4 (60443) Add On Problem Visit Only Diagnoses Precordial chest pain R07.2 Abnormal stress test R94.39 Abnormal echocardiogram R93.1 History of cardiac cath Z98.890
--- OUTSIDE RECORDS SUMMARY | 2025-02-13 18:02 | XMS_ITS | Encounter Summary ---
Author Organization [employer] Address [address] [facility] [address] [place] [address] Care Team Providers Care Residential Energy Auditor Name Role Phone Isa Lujan DO Primary Care Provider + [phone] Knight RN Unavailable [phone] Connie Lyles Unavailable Reason for Visit * Reason Onset Date Comments Hospital Follow-up 05/18/2024 Encounter Details Date Type Department Care Team (Late st Contact Info) Description 05/18/2024 Telephone [facility] MED[facility]INE [address] [place] [address] Isa Lujan DO [address] [place], [place] [phone] Hospital Follow-up Social History Tobacco Use Types [...] from pt requesting a HDF appt. Hospital: [facility] Date of admission: 05/14/2024 Discharge date: 05/17/2024 Diagnosed: stone in the bladder *Send message to [facility] Coordinators documented in this encounter Plan of Treatment Upcoming Encounters Date Type Department Care Team (Late st Contact Info) Description 02/28/2025 9:30 AM EST Procedure Visit [facility] [address] [place] [address] Isa Lujan DO [address] [place] [address] documented as of this encounter Visit Diagnoses Not on filedocumented in this encounter Additional Health Concerns Assessment Noted Time PHQ-9 Depression Total Score: 11 024 11:02 AM EDT documented as of this encounter Care Teams Residential Energy Auditor Relationship Specialty Start Date End Date Isa Lujan DO [address] [place] [address] PCP - General Family Medicine 04/22/20 Db Knight RN [address] [place] [address] Registered Nurse Family Medicine 10/09/24 01/18/25 Connie Lyles 10/09/24 01/25/25 documented as of this encounter
--- OUTSIDE RECORDS SUMMARY | 2025-02-13 18:02 | XMS_ITS | Encounter Summary ---
Author Organization [employer] Address [address] [facility] 7[address] [place] [address] Care Team Providers Care Legal Services Professional Name Role Phone Isa Lujan DO Primary Care Provider + [phone] Knight RN Unavailable [phone] Connie Lyles Unavailable Reason for Visit * Reason Comments Med Refill Encounter Details Date Type Department Care Team (Late st Contact Info) Description 01/25/2023 Refill [facility] [address] [place] [address] Isa Lujan DO [address] [place] [address] Mild persistent asthma without complication Social History [...] Description 02/28/2025 9:30 AM EST Procedure Visit [facility] [address] [place] [address] Isa Lujan DO [address] [place] [address] documented as of this encounter Visit Diagnoses Diagnosis Mild persistent asthma without complication documented in this encounter Additional Health Concerns Assessment Noted Time PHQ-9 Depression Total Score: 10 023 10:47 AM EDT documented as of this encounter Care Teams Legal Services Professional Relationship Specialty Start Date End Date Isa Lujan DO [address] [place] [address] PCP - General Family Medicine 04/22/20 Db Knight, ANNA [address] [place] [address] Registered Nurse Family Medicine 10/09/24 01/18/25 Connie Lyles 10/09/24 01/25/25 documented as of this encounter
--- OUTSIDE RECORDS SUMMARY | 2025-02-13 18:02 | XMS_ITS | Clinical Summary ---
Author Organization [employer] Address [address] [facility] 7t [place] [address] Care Team Providers Care Guidance Adviser Name Role Phone TaiIsa Primary Care Provider [phone] Allergies No known active allergies Medications senna (Senokot) 8.6 MG tabletIndications :Constipation, unspecified constipation type TAKE 1 TABLET BY MOUTH EVERY DAY NEEDED FOR CONSTIPATION 90 tablet 023 Active buPROPion XL (Wellbutrin XL) 150 MG 24 hr tablet Take 150 mg by mouth in the morning. 023 Active busPIRone (Buspar) 15 MG tablet 023 Active FLUoxetine (PROzac) 20 MG capsule 023 Active hydrOXYzine pamoate (Vistaril) 50 MG capsule 023 Active zolpidem (Ambien) 10 MG tablet [...] bedtime (pain). 150 g 3 024 Active albuterol (2.5 MG/3ML) 0.083% nebulizer solutionIndicatio ns:Mild persistent asthma without complication Take 3 mL (2.5 mg) by nebulization every 4 (four) hours if needed for wheezing or shortness of breath. 75 mL 2 024 Active fluticasone (Flonase) 50 MCG/ACT nasal spray Administer 2 sprays into each nostril Once per day. Shake gently. Before first use, prime pump. After use, clean tip and replace cap. 18 g Active Additional Information Patient not taking.Reported on 10/19/2024 ondansetron ODT (Zofran-ODT) 4 MG disintegrating tablet DISSOLVE 1 TABLET ON TONGUE EVERY 6 HOURS Active Antacid/Antigas 400-400-40 MG/10ML oral suspension Active D3 Super Strength 50 MCG (1999 UT) capsuleIndication s:Vitamin D deficiency TAKE 1 CAPSULE BY MOUTH EVERY MORNING 90 capsule 3 Active Tirzepatide-Weigh t Management (Zepbound) 2.5 MG/0.5ML solution auto-injector Inject 0.5 mL (2.5 mg) under the skin 1 (one) time per week. 2 mL 3 Active Additional Information Patient not taking.Reported on 10/19/2024 docusate sodium (Colace) 100 MG capsule TAKE 1 CAPSULE BY MOUTH TWICE DAILY IN THE MORNING AND AT BEDTIME 180 capsule 3 02/02/20 25 8:45 AM EST Active Fiber-Lax 625 MG tablet TAKE 1 TABLET BY MOUTH TWICE DAILY IN THE MORNING AND AT BEDTIME 180 tablet 3 02/02/20 8:45 AM EST Active amitriptyline (Elavil) 25 MG tablet TAKE 2 TABLETS BY MOUTH EVERY DAY AT BEDTIME 180 tablet 3 Active nitroglycerin (Nitrostat) 0.4 MG SL tablet Active omeprazole (PriLOSEC) [address] capsuleIndication s:Chronic GERD Take 1 capsule (20 mg) by mouth before breakfast and before evening meal. take 1 capsule (20MG) by oral route every day before a meal 180 capsule 3 12/30/19 2:58 PM EST 2025 Active ferrous sulfate (Fe Tabs) 325 (65 Fe) MG EC tablet Take 1 tablet (325 mg) by mouth 3 (three) times a week. Do not crush, chew, or split. 36 tablet 3 12/30/19 2:58 PM EST 14/ 2026 Active famotidine (Pepcid) 20 MG tablet TAKE 2 TABLETS BY MOUTH EVERY DAY AT BEDTIME 180 tablet 1 02/02/20 25 8:45 AM EST Active Aspirin Low Dose 81 MG EC tablet Take 1 tablet (81 mg) by mouth Once per day. 30 tablet 3 Active Arnuity Ellipta 100 MCG/ACT inhaler INHALE 1 PUFF BY MOUTH EVERY DAY RINSE MOUTH AFTER USING. 30 each 11 02/02/20 25 8:45 AM EST Active loratadine (Claritin) 10 MG tablet TAKE 1 TABLET BY MOUTH EVERY DAY 90 tablet 1 Active atorvastatin (Lipitor) 40 MG tablet Take 1 tablet (40 mg) by mouth Once per day. 30 tablet 3 02/02/20 25 8:45 AM EST Active metoprolol succinate XL (Toprol-XL) 25 MG 24 hr tablet Take 1 tablet (25 mg) by mouth Once per day. 30 tablet 3 02/02/20 25 8:45 AM EST Active loratadine (Claritin) 10 MG tablet TAKE 1 TABLET BY MOUTH EVERY DAY 90 tablet 1 025 2024 Discontinued atorvastatin (Lipitor) 40 MG tablet Take 1 tablet (40 mg) by mouth Once per day. 30 tablet 3 025 2024 Discontinued(R eorder (will not trigger notification to Pharmacy)) metoprolol succinate XL (Toprol-XL) 25 MG 24 hr tablet Take 1 tablet (25 mg) by mouth Once per day. 30 tablet 3 025 2024 Discontinued(R eorder (will not trigger notification [...] Encounters Date Type Department Care Team Description 01/25/2025 Patient Outreach [facility] [address] [place] [phone] Isa Lujan DO Care Coordination (CHW follow up) 01/23/2025 Telephone [facility] [address] [place] [address] Isa Lujan DO Appointment Request 01/23/2025 Telephone [facility] [address] [place] [address] Isa Lujan DO Appointment Request 01/23/2025 Travel 01/23/2025 Refill [facility] & PEDS [address] [place], [place] [phone] Isa Lujan DO 01/18/2025 Patient Outreach [address] [address] Isa Lujan DO Care Management (C3CM- f/u call) 01/17/[address] [address] Isa Lujan DO 01/16/[address] [address] Isa Lujan DO Chart Prep 01/10/[address] [address] Isa Lujan DO Recall Appointment 01/10/2025 Travel 01/03/2025 Patient Outreach [address] [phone] Isa Lujan DO Care Management (C3CM- f/u call) 12/21/2024 Patient Outreach [address] [address] Isa Lujan DO Care Coordination (SDOH) 12/20/2024 Patient Outreach [address] [address] Isa Lujan DO Care Coordination (SDOH) 12/20/2024 Patient Outreach [address] [address] Isa Lujan DO Care Management (C3CM- f/u call) 12/19/2024 Orders Only GENERIC EXTERNAL DATA DEPARTMENT Provider, Generic External Data 12/07/2024 Patient Outreach [address] [address] Isa Lujan DO Care Management (C3CM- f/u call lvm) 11/24/2024 Patient Outreach [address] [address] Isa Lujan DO Care Coordination (SDOH f/u) 11/24/2024 Patient Outreach [address] [address] Isa Lujan DO Care Management (C3CM- f/u call) 11/20/2024 Telephone [facility] [address] [place] [address] Isa Lujan DO Chart Prep 11/20/2024 Patient Outreach [facility] [address] [place] [address] Isa Lujan DO 11/14/2024 Travel from Last 3 Months Immunizations Immunization Administration [...] Description 02/28/2025 9:30 AM EST Procedure Visit [facility] [address] [place] [address] Isa Lujan DO [address] [place] [address] Health Maintenance Due Date Last Done Comments CT Colonography 1970 Colonoscopy 1971 Colorectal Cancer Screening 1970 FIT DNA/Cologuard 1971 FIT 1970 FOBT 1970 Sigmoidoscopy 1971 Hepatitis B Vaccines (1 of 3 - 19+ 3-dose series) 07/30/1990 Pap Smear 07/30/1992 Cervical Cancer Screening 07/30/2001 HPV/Cotest 07/30/2001 RSV Patients and Patients Aged 60 years or older (1 - Risk 50-74 years 1-dose series) 07/30/2021 Zoster Vaccines (1 of 2) 07/30/2021 Pneumococcal Vaccine: 50+ Years (2 of 2 - PCV) 02/04/2023 02/04/2022 COVID-19 Vaccine (3 - 2024- season) 2024 05/31/2020, 05/03/2020 Influenza Vaccine (#1) 2024 Depression Monitoring 04/18/2025 10/19/2024, 025 Mammogram 06/01/2025 06/01/2024, 05/27/2023 Alcohol/Substance Use Screening 06/13/2025 06/13/2024 Diabetes: Hemoglobin A1C 06/13/2025 025, 04/30/2023, 06/17/2022, Additional history exists Disability Screening 06/13/2025 06/13/2024 Tobacco Screening 06/13/2025 06/13/2024 SDOH Screening 11/20/2025 11/20/2024 Lipid Panel 06/13/2029 06/13/2024, 04/15, 02/18/2022 DTaP/Tdap/Td Vaccines (2 - Td or Tdap) 06/17/2032 06/17/2022 HIV Screening Completed 06/13/2024, 04/15, 02/18/2022 Hepatitis [...] Blood Count 11.1(H) 4.8 - 10.8 X10*3/uL [facility] Red Blood Count 4.85 4.20 - 5.50 X10*6/uL [facility] Hemoglobin 12.0 12.0 - 16.0 g/dl [facility] Hematocrit 37.6 37.0 - 47.0 % [facility] Mean Corpuscular Volume 77.5(L) 80.0 - 98.0 fL [facility] Mean Corpuscular Hemoglobin 24.7(L) 27.0 - 33.0 pg [facility] Mean Corpuscular HGB Conc 31.9 31.0 - 35.0 g/dl [facility] Red Cell Distribution Width 14.4 11.0 - 16.0 % [facility] Platelet Count 294 160 - 400 X10*3/uL [facility] Mean Platelet Volume 10.8 9.4 - 12.3 fL [facility] Neutrophils Percent Auto 63.5 45 - 73 % [facility] Imm Gran Pct Auto 0.4 0.0 - 0.4 % [facility] Lymphocytes Percent Auto 26.0 20 - 40 % [facility] Monocytes Percent Auto 6.5 2 - 11 % [facility] Eosinophils Percent Auto 3.0 0 - 4 % [facility] Basophils Percent Auto 0.6 0 - 2 % [facility] NRBC Pct Auto 0.0 0.0 - 0.2 /100WBC [facility] Neutrophils Absolute Auto 7.1 2.0 - 8.3 x10*3/uL [facility] Imm Gran Abs Auto 0.04(H) 0.00 - 0.03 X10*3/uL [facility] Lymphocytes Absolute Auto 2.9 1.2 - 4.9 X10*3/uL [facility] Monocytes Absolute Auto 0.7 0.1 - 1.2 X10*3/uL [facility] Eosinophils Absolute Auto 0.3 0.0 - 0.4 X10*3/uL [facility] Basophils Absolute Auto 0.1 0.0 - 0.2 X10*3/uL [facility] NRBC Abs Auto 0.000 0.0 - 0.012 X10*3/uL [facility] 12/19/2024 2:26 PM EST 12/19/2024 3:55 PM EST Generic External Data Provider LAB BLOOD ORDERAB LES Final Result Performing Organization Address [facility] Co de Phone Number [facility] [address] [place] [phone] * Prothrombin Time-INR (12/19/2024 2:26 PM EST) Prothrombin Time 11.6 10.9 - 12.4 SEC [facility] INTERNATIONAL NORM RATIO 1.0 0.9 - 1.1 [facility] Comment:INTERNATIONAL NORMAL IZED RATIO (INR) REFERENCE [...] ORDERAB LES Final Result Performing Organization Address [facility] de Phone Number [facility] [address] [place] [phone] * (ABNORMAL) Basic Metabolic Panel (12/19/2024 2:26 PM EST) Sodium 139 135 - 145 mmol/L [facility] Potassium 4.1 3.3 - 5.1 mmol/L [facility] Chloride 106 96 - 108 mmol/L [facility] Carbon Dioxide 27 22 - 29 mmol/L [facility] Anion Gap 10(L) 12 - 20 [facility] Urea Nitrogen (BUN) 13 9 - 16 mg/dL [facility] Creatinine, Serum 0.90 0.5 - 1.4 mg/dL [facility] Estimated Glomerular Filt Rate >60 [facility] Comment:Chronic Kidney Disea se: Estimated GFR < 60 mL/min/1.35w2Vecghv Kidney Disease: Estimated GFR < 15 mL/min/1.73m2 Glucose 115 60 - 115 mg/dL [facility] Calcium 9.0 8.4 - 10.2 mg/dL [facility] 12/19/2024 2:26 PM EST 12/19/2024 3:55 PM EST us Generic External Data Provider LAB BLOOD ORDERAB LES Final Result Performing Organization Address [facility] Co de Phone Number [facility] [address] [place] [phone] * Hepatitis C Antibody with Reflex to HCV, RNA, Quantitative, Real-Time PCR (06/13/2024 9:58 AM EDT) Hepatitis C Antibody Nonreactive Nonreactive [facility] Comment:Antibodies to HCV no t detected; does not exclude early acuteHCV infection. Blood Venous blood specimen / Unknown 06/13/2024 9:58 AM EDT 06/13/2024 11:17 AM EDT us Isa Lujan DO LAB BLOOD ORDERABLES Final R esult Performing Organization Address [facility]/ZIP Co de Phone Number [facility] [address] [place] [phone] * HIV-1/2 Antigen and Antibodies, Fourth Generation, with Reflexes (06/13/2024 9:58 AM EDT) HIV AB/AG Nonreactive Nonreactive [facility] Comment:HIV-1 p24 Ag and/or HIV-1/HIV-2 Ab not detected.A test result that is nonreactive does not exclude thepossibility of exposure to or infection with HIV-1 and/orHIV-2. Nonreactive results in this assay for individualswith prior exposure to HIV-1 and/or HIV-2 may be due toantigen and antibody levels that are below the limit ofdetection of this assay.The [employer] HIV Ag/Ab Combo assay result andsupplemental assay results should be interpreted inconjunction with the patient's clinical presentation,history and other laboratory results. If the results areinconsistent with clinical evidence, additional testing issuggested to confirm the result. Blood Venous blood specimen / Unknown 06/13/2024 9:58 AM EDT 06/13/2024 11:17 AM EDT us Isa Lujan DO LAB BLOOD ORDERABLES Final R esult Performing Organization Address [facility] Co de Phone Number [facility] [address] [place] [phone] * (ABNORMAL) Hemoglobin A1c (06/13/2024 9:58 AM EDT) Hemoglobin A1c 6.2(H) <6.0 % [facility] Comment:Hemoglobin A1C Refer ence Range Adults: 4.8 - 6.0 % Non diabetic: < 6.0 % Goal: < 7.0 %Additional Action Suggested: > 8.0 %Note: Hemoglobin A1c results are invalid for patients with abnormal amounts of HbF. Blood transfusions may impact the HbA1c concentration in the patient sample. Estimated Average Glucose 131 mg/dL [facility] Comment:eAG = Estimated ave rage glucose which is %A1C expressed asaverage glucose, using the formula of the Z8W-TrwfrwvLclcqxg Glucose study (ADAG), Diabetes Care, Vol.31,#8,Sep. 2007 Blood Venous blood specimen / Unknown 06/13/2024 9:58 AM EDT 06/13/2024 11:21 AM EDT us Isa Lujan DO LAB BLOOD ORDERABLES Final R esult Performing Organization Address [facility]/ZIP Co de Phone Number [facility] [address] [place] [phone] * Lipid Panel, Standard (06/13/2024 9:58 AM EDT) Triglycerides 87 <150 mg/dL [facility] Comment:Desirable Triglyceri de: less than 150 mg/dLBorderline High Triglyceride 150-199 mg/dLHigh Triglyceride: 200-499 mg/dLVery High Triglyceride: greater than or equal to 5OO mg/dL Cholesterol 93 <200 mg/dL [facility] Comment:Desirable Cholestero l: less than 200 mg/dLBorderline High Cholesterol: 200-239 mg/dLHigh Cholesterol: greater than 239 mg/dL LDL Cholesterol Calculated 35 <100 mg/dL [facility] Comment:Desirable LDL: less than 100 mg/dLNear Optimal/Above Optimal LDL: 110- 129 mg/dLBorderline High LDL: 130-159 mg/dLHigh LDL: 160-189 mg/dLVery High LDL: greater than or equal to 190 mg/dL HDL Cholesterol 41 >40 mg/dL [facility] Comment:Desirable HDL: great er than 40 mg/dL Note: This HDL assay may give artificially low results in patients with liver disease. Blood Venous blood specimen / Unknown 06/13/2024 9:58 AM EDT 06/13/2024 11:17 AM EDT us Isa Lujan DO LAB BLOOD ORDERABLES Final R esult [facility] [address] [facility] [place] [phone] * BI Mammogram Screening Tomosynthesis Bilateral (06/01/2024 3:12 PM EDT) Anatomical Region Laterality Modality Breast Bilateral Mammography 06/01/2024 3:12 PM EDT Narrative 06/10/2024 8:54 PM EDT [facility] [address] [place] [address] Mammography Report Signed Patient: Radha Tinajero MR#: [id number] : 1970 Acct:[id number] Age/Sex: 53 / F ADM Date: 06/01/24 Loc: MAMMO Attending Dr: Isa Lujan DO Ordering Physician: Isa Lujan DO Results: 1N egative Date of Service: 06/01/24 Follow Up: 1 Year From Orig inal Mammogram Procedure(s): MM tomosynthesis screening BI Accession Number(s): [id number] cc: Isa Lujan DO EXAMINATION: MM SCREENING [...] OV> 06/10/242050 DD/ 1512 TD/TT: 06/01/24 1530 Fisher Gill Net: Procedure Note Donotuseinterpreter, Image - 06/10/2024 [facility] [address] [place], [place] [address] Mammography Report Signed Patient: Radha TinajeroMR#: [id number] : 1970Acct:[id number] Age/Sex: 53 / FADM Date: 06/01/24 Loc: MAMMO Attending Dr: Isa Lujan DO Ordering Physician: Isa Lujanults: 1N egative Date of Service: 06/01/24Follow Up: 1 Year From Orig ina Mammogram Procedure(s): MM tomosynthesis screening BI Accession Number(s): [id number] cc: Isa Lujan DO EXAMINATION: MM SCREENING [...] OV> 06/10/242050 DD/ 1512 TD/TT: 06/01/24 1530 Fisher Gill Net: Isa Lujan DO IMG BI PROCEDURES Edited Res ult - Final from Last 3 Months or Most Recently Relevant to Health Maintenance Insurance [facility] C3 Care Teams Guidance Adviser Relationship Specialty Start Date End Date Isa Lujan DO [address] [place] [phone] PCP - General Family Medicine 04/22/20
--- OUTSIDE RECORDS SUMMARY | 2025-02-13 18:02 | XMS_ITS | Encounter Summary ---
Author Organization [employer] Address [address] [facility] 7t [place] [address] Care Team Providers Care Interceptor Operator Name Role Phone Isa Lujan DO Primary Care Provider [phone] Db Knight RN Unavailable [phone] Connie Lyles Unavailable Encounter Details Date Type Department Care Team (Late st Contact Info) Description 04/22/2022 Orders Only [facility] MED & PEDS [address] [place], [place] [phone] Isa Jacobson LPN Social History Tobacco Use [...] Description 02/28/2025 9:30 AM EST Procedure Visit [facility] MEDICINE [address] [place], [place] [phone] Isa Lujan DO [address] [place], [place] [phone] documented as of this encounter Visit Diagnoses Not on filedocumented in this encounter Additional Health Concerns Assessment Noted Time PHQ-9 Depression Total Score: 14 022 11:11 AM EST documented as of this encounter Care Teams Interceptor Operator Relationship Specialty Start Date End Date Isa Lujan DO [address] [place] [address] PCP - General Family Medicine 04/22/20 Db Knight RN [address] [place] [address] Registered Nurse Family Medicine 10/09/24 01/18/25 Connie Lyles 10/09/24 01/25/25 documented as of this encounter
--- OUTSIDE RECORDS SUMMARY | 2025-02-13 18:02 | XMS_ITS | Encounter Summary ---
Author Organization [employer] Address [address] [facility] [address] [place] [address] Care Team Providers Care Api Developer Name Role Phone Isa Lujan DO Primary Care Provider [phone] Db Knight RN Unavailable [phone] Connie Lyles Unavailable Encounter Details Date Type Department Care Team (Late st Contact Info) Description 05/22/2022 Orders Only [facility] CH[facility] MED & PEDS [address] [place], [place] [phone] Isa Jacobson LPN Social History Tobacco Use [...] Description 02/28/2025 9:30 AM EST Procedure Visit [facility] MEDICINE [address] [place], [place] [phone] Isa Lujan DO [address] [place], [place] [phone] documented as of this encounter Visit Diagnoses Not on filedocumented in this encounter Additional Health Concerns Assessment Noted Time PHQ-9 Depression Total Score: 14 022 11:11 AM EST documented as of this encounter Care Teams Api Developer Relationship Specialty Start Date End Date Isa Lujan DO [address] [place] [address] PCP - General Family Medicine 04/22/20 Db Knight RN [address] [place] [address] Registered Nurse Family Medicine 10/09/24 01/18/25 Connie Lyles 10/09/24 01/25/25 documented as of this encounter
--- OUTSIDE RECORDS SUMMARY | 2025-02-13 18:02 | XMS_ITS | Encounter Summary ---
Author Organization [employer] Address [address] [facility] [address] [place] [address] Care Team Providers Care County Engineer Name Role Phone Isa Lujan DO Primary Care Provider [phone] Db Knight RN Unavailable [phone] Connie Lyles Unavailable Encounter Details Date Type Department Care Team (Late st Contact Info) Description 01/30/2022 Orders Only [facility] CH[facility] MED & PEDS [address] [place] [address] Isa Jacobson LPN Social History Tobacco Use [...] Description 02/28/2025 9:30 AM EST Procedure Visit [facility] MEDICINE [address] [place] [address] Isa Lujan DO [address] [place], [place] [phone] documented as of this encounter Visit Diagnoses Not on filedocumented in this encounter Care Teams County Engineer Relationship Specialty Start Date End Date Isa Lujan DO [address] [place] [address] PCP - General Family Medicine 04/22/20 Db Knight RN [address] [place] [phone] Registered Nurse Family Medicine 10/09/24 01/18/25 Connie Lyles 10/09/24 01/25/25 documented as of this encounter
== END 2025-02-13 15:06 | disposition home or self-care (01) ==
LOC: HO.HCS 14:18
PROVIDERS: PCP Family Medicine; Visit Provider Nurse Practitioner Family
DX: R07.2 Precordial pain (principal); R94.39 Abnormal result of other cardiovascular function study; R93.1 Abnormal findings on diagnostic imaging of heart and coronary circulation; Z98.890 Other specified postprocedural states
CPT/HCPCS: 99214

== ENCOUNTER → 2025-02-13 14:18 | Outpatient (BNVA) | payer MEDICAID, SELFPAY | PROVIDERS: PCP Family Medicine; Visit Provider Nurse Practitioner Family | DX: R07.2 Precordial pain (principal); R94.39 Abnormal result of other cardiovascular function study; R93.1 Abnormal findings on diagnostic imaging of heart and coronary circulation; Z98.890 Other specified postprocedural states; Z79.899 Other long term (current) drug therapy | CPT/HCPCS: 99212 ==